=== PATIENT | female | born 1955 | race Caucasian/White ===

== ENCOUNTER 2016-09-24 11:56 | Day surgery (SDC) | payer BC ==
[2016-09-18 11:06] VITALS: BMI 39.5
[~2016-09-24 11:56] MED LIST: LACTATED RINGERS 1,000 ML IV ONE; LACTATED RINGERS 1,000 ML IV SCH
[2016-09-24 12:14] VITALS: RESP 16; TEMP 97.1
[2016-09-24] MEDS: CYCLOPENTOLATE 1% OPHTH SOLN 2 ML BTL OP ONE ×3 (12:17→12:33)
[2016-09-24] MEDS ORDERED: LIDOCAINE 1% 20 ML VIAL (10MG/ML) FOR IV START SQ ONE (12:18)
[2016-09-24] MEDS: FLURBIPROFEN 0.03% OPHTH DROPS 2.5 ML BTL OP ONE ×3 (12:22→12:35)
[2016-09-24] MEDS: PHENYLEPHRINE 10% OPHTH DROPS 5 ML BTL OP ONE ×3 (12:24→12:37)
[2016-09-24 12:28] LABS: Glucose,Whole Blood 118 mg/dL (75-99)
[2016-09-24] MEDS ORDERED: LIDOCAINE 1% INJ 10MG/ML (20 ML MDV) ONE (12:44)
[2016-09-24] MEDS ORDERED: PROPOFOL 10 MG/ML 20 ML VIAL IV ONE (12:44)
[2016-09-24] MEDS ORDERED: HYALURONATE SODIUM INTRAOCULAR 1 EACH SYRINGE (10MG/ML) INTRAOCULA ONE (12:47)
[2016-09-24] MEDS ORDERED: BALANCED SALT IRRIG SOLN COMB2 15 ML IRRIG.SOLN INTRAOCULA ONE (12:47)
[2016-09-24] MEDS ORDERED: EPINEPHrine (PF) 0.5 ML in BALANCED SALT IRRIG SOLN COMB2 500 ML IRRIGATION ONE (12:51)
[2016-09-24 13:36] VITALS: BP 151/85; PULSE 60
--- NOTE | 2016-09-24 13:47 | P.OP ---
Date of Procedure: 09/24/16 Procedure(s) Performed: PREOPERATIVE DIAGNOSIS: Cataract, left eye. POSTOPERATIVE DIAGNOSIS: Cataract, left eye. OPERATION: Phacoemulsification cataract, left eye. DESCRIPTION OF PROCEDURE: The patient was taken to the preoperative holding area. Intravenous Propofol was given so as to bring about adequate sedation. The following mixture was given for local anesthesia: 5 mL of 2% lidocaine, 5 mL of 0.75% Marcaine, and 1 mL of Wydase. Approximately 4 mL was injected in the retrobulbar space of the surgical eye. Additional 1 mL was then directed to the temporal area of the surgical eye. This was performed to allow adequate neurological block of the facial muscles. The patient was revived and then taken into the operative room. The patient was prepped and draped in the usual sterile manner for the operative eye. A lid speculum was put into position. The conjunctiva was resected back from the limbus in the 12 o'clock position. Bleeding was controlled with electrocautery. A #69 blade was then used and a half-thickness scleral incision approximately 1-mm posterior to the limbus was made on bare sclera. This was shelved in the clear cornea using a crescent knife. Next a 15-degree blade was used to make a stab incision at the 3 o' clock position at the corneolimbal interface. Keratome blade was then used and the superior wound was extended into the anterior chamber. Viscoelastic was injected into the anterior chamber and to maintain its form. Next, a cystotome was used and a continuous anterior capsulotomy was made without difficulty. Hydrodissection using a blunt cannula and BSS was performed. Phaco probe was then employed and a groove extending from 12 to 6 o'clock in the lens was created. A Ari wand was used through the stab incision so as to perform a divide and conquer technique. Next an irrigation aspiration probe was utilized and any residual cortex was removed from the eye. Again, viscoelastic was injected into the anterior chamber. An Frantz posterior chamber lens implant was placed in the cartridge and injected into the anterior chamber without difficulty. The SinClickyreservaey hook was utilized to spin the lens into position and this was again performed without any difficulty. The irrigation and aspiration probe was again employed and any residual viscoelastic was removed from the eye. Then BSS was injected into the limbal stab incision and the anterior chamber re-inflated. The conjunctiva was reapproximated using electrocautery. One drop of 0.25% Timoptic was placed over the corneal along with TobraDex ophthalmic ointment. Two sterile patches and a Nicholson eye shield were taped into position. The patient was transported to the recovery room in stable condition. Pathology: none sent Condition: stable Disposition: same day
[2016-09-24] MEDS ORDERED: TIMOLOL 0.5% OPHTH SOLN (PF) 0.2 ML DROPERETTE OP ONE (23:00)
[2016-09-24] MEDS ORDERED: BUPIVACAINE (PF) 0.75% 5 ML, LIDOCAINE 4% (PF) 5 ML, HYALURONIDASE, HUMAN RECOMB 150 UNIT MISCELLANE ONE ×3 (23:00)
[2016-09-24] MEDS ORDERED: GENTAMICIN/PREDNISOL AC OPHTH OINT 3.5GM OPHTHALMIC ONE (23:00)
== END 2016-09-24 14:02 | disposition home or self-care (01) ==
LOC: OR 11:56
PROVIDERS: ATTEND Ophthalmology
DX: H25.13 Age-related nuclear cataract, bilateral (principal); I25.10 Atherosclerotic heart disease of native coronary artery without angina pectoris; Z95.5 Presence of coronary angioplasty implant and graft; E11.9 Type 2 diabetes mellitus without complications; E07.9 Disorder of thyroid, unspecified; F41.9 Anxiety disorder, unspecified; E78.9 Disorder of lipoprotein metabolism, unspecified; I10 Essential (primary) hypertension; Z79.84 Long term (current) use of oral hypoglycemic drugs; Z79.02 Long term (current) use of antithrombotics/antiplatelets; Z79.82 Long term (current) use of aspirin; Z79.4 Long term (current) use of insulin; Z79.899 Other long term (current) drug therapy
CPT/HCPCS: 66984; V2632; J2001 ×2; J3470; J0171; J2704; 99152; 99153

== ENCOUNTER 2016-10-15 06:22 | Day surgery (SDC) | payer BC ==
[2016-10-10 17:57] VITALS: BMI 39.5
[~2016-10-15 06:22] MED LIST changes: +DEXAMETHASONE SOD PHOSPHATE 10 MG/ML 1 ML VIAL IV ONE; +HYDROmorphone 1 MG/ML 1 ML SYRINGE IVP PRN; -LACTATED RINGERS 1,000 ML IV ONE; +ONDANSETRON 4 MG/2 ML VIAL IVP ONE
[2016-10-15] MEDS: FLURBIPROFEN 0.03% OPHTH DROPS 2.5 ML BTL OP ONE ×3 (06:55→07:15)
[2016-10-15] MEDS: CYCLOPENTOLATE 1% OPHTH SOLN 2 ML BTL OP ONE ×3 (06:57→07:17)
[2016-10-15 07:04] LABS: Glucose,Whole Blood 212 mg/dL (75-99)
[2016-10-15] MEDS: PHENYLEPHRINE 10% OPHTH DROPS 5 ML BTL OP ONE ×3 (07:06→07:19)
[2016-10-15] MEDS ORDERED: LIDOCAINE 1% 20 ML VIAL (10MG/ML) FOR IV START INTRADERMA ONE (07:07)
[2016-10-15] MEDS ORDERED: LIDOCAINE 1% INJ 10MG/ML (20 ML MDV) ONE (07:53)
[2016-10-15] MEDS ORDERED: fentaNYL (PF) 50 MCG/ML 2 ML AMP ONE (07:53)
[2016-10-15] MEDS ORDERED: PROPOFOL 10 MG/ML 20 ML VIAL IV ONE (07:53)
[2016-10-15] MEDS ORDERED: MIDAZOLAM 2 MG/2 ML VIAL ONE (07:53)
[2016-10-15] MEDS ORDERED: BALANCED SALT IRRIG SOLN COMB2 15 ML IRRIG.SOLN INTRAOCULA ONE (07:56)
[2016-10-15] MEDS ORDERED: HYALURONATE SODIUM INTRAOCULAR 1 EACH SYRINGE (10MG/ML) INTRAOCULA ONE (07:56)
[2016-10-15] MEDS ORDERED: EPINEPHrine (PF) 0.5 ML in BALANCED SALT IRRIG SOLN COMB2 500 ML IRRIGATION ONE (08:02)
[2016-10-15 08:22] VITALS: TEMP 97.7
[2016-10-15 08:41] VITALS: BP 139/80; PULSE 69; RESP 18
--- NOTE | 2016-10-15 08:46 | P.OP ---
Date of Procedure: 10/15/16 Procedure(s) Performed: PREOPERATIVE DIAGNOSIS: Cataract, right eye. POSTOPERATIVE DIAGNOSIS: Cataract, right eye. OPERATION: Phacoemulsification cataract, right eye. DESCRIPTION OF PROCEDURE: The patient was taken to the preoperative holding area. Intravenous Propofol was given so as to bring about adequate sedation. The following mixture was given for local anesthesia: 5 mL of 2% lidocaine, 5 mL of 0.75% Marcaine, and 1 mL of Wydase. Approximately 4 mL was injected in the retrobulbar space of the surgical eye. Additional 1 mL was then directed to the temporal area of the surgical eye. This was performed to allow adequate neurological block of the facial muscles. The patient was revived and then taken into the operative room. The patient was prepped and draped in the usual sterile manner for the operative eye. A lid speculum was put into position. The conjunctiva was resected back from the limbus in the 12 o'clock position. Bleeding was controlled with electrocautery. A #69 blade was then used and a half-thickness scleral incision approximately 1-mm posterior to the limbus was made on bare sclera. This was shelved in the clear cornea using a crescent knife. Next a 15-degree blade was used to make a stab incision at the 3 o' clock position at the corneolimbal interface. Keratome blade was then used and the superior wound was extended into the anterior chamber. Viscoelastic was injected into the anterior chamber and to maintain its form. Next, a cystotome was used and a continuous anterior capsulotomy was made without difficulty. Hydrodissection using a blunt cannula and BSS was performed. Phaco probe was then employed and a groove extending from 12 to 6 o'clock in the lens was created. A Ari wand was used through the stab incision so as to perform a divide and conquer technique. Next an irrigation aspiration probe was utilized and any residual cortex was removed from the eye. Again, viscoelastic was injected into the anterior chamber. An Frantz posterior chamber lens implant was placed in the cartridge and injected into the anterior chamber without difficulty. The SinJapan [employer]life Assistey hook was utilized to spin the lens into position and this was again performed without any difficulty. The irrigation and aspiration probe was again employed and any residual viscoelastic was removed from the eye. Then BSS was injected into the limbal stab incision and the anterior chamber re-inflated. The conjunctiva was reapproximated using electrocautery. One drop of 0.25% Timoptic was placed over the corneal along with TobraDex ophthalmic ointment. Two sterile patches and a Nicholson eye shield were taped into position. The patient was transported to the recovery room in stable condition. Pathology: none sent Condition: stable Disposition: same day
[2016-10-15] MEDS ORDERED: GENTAMICIN/PREDNISOL AC OPHTH OINT 3.5GM OPHTHALMIC ONE (23:00)
[2016-10-15] MEDS ORDERED: TIMOLOL 0.5% OPHTH SOLN (PF) 0.2 ML DROPERETTE OP ONE (23:00)
[2016-10-15] MEDS ORDERED: BUPIVACAINE (PF) 0.75% 5 ML, LIDOCAINE 4% (PF) 5 ML, HYALURONIDASE, HUMAN RECOMB 150 UNIT MISCELLANE ONE ×3 (23:00)
== END 2016-10-15 08:54 | disposition home or self-care (01) ==
LOC: OR 06:22
PROVIDERS: ATTEND Ophthalmology
DX: H26.9 Unspecified cataract (principal); H04.129 Dry eye syndrome of unspecified lacrimal gland; I10 Essential (primary) hypertension; E78.5 Hyperlipidemia, unspecified; E11.9 Type 2 diabetes mellitus without complications; Z79.4 Long term (current) use of insulin; Z79.84 Long term (current) use of oral hypoglycemic drugs; E07.9 Disorder of thyroid, unspecified; E66.01 Morbid (severe) obesity due to excess calories; Z68.39 Body mass index [BMI] 39.0-39.9, adult; F41.9 Anxiety disorder, unspecified; N39.3 Stress incontinence (female) (male); I25.10 Atherosclerotic heart disease of native coronary artery without angina pectoris; Z95.5 Presence of coronary angioplasty implant and graft; Z79.02 Long term (current) use of antithrombotics/antiplatelets; Z79.82 Long term (current) use of aspirin; Z79.899 Other long term (current) drug therapy
CPT/HCPCS: 66984; V2632; J2001 ×2; J2250; J3470; J0171; J3010; J2704; 99152; 99153

== ENCOUNTER → 2018-02-27 | Outpatient (CLI) | payer BC ==
[2018-02-27 09:24] LABS: HGB 14.3 gm/dL (11.4-16.0); MCH 28.2 pg (25.0-35.0); MCHC 31.7 g/dL (31.0-37.0); Mean Platelet Volume 7.9; Platelet Count 273 k/uL (150-450); RBC 5.05 m/uL (3.80-5.40); RDW 13.5 % (11.5-15.5); WBC 8.3 k/uL (3.8-10.6)
[2018-02-27 09:57] LABS: Anion Gap 13 mmol/L; Blood Urea Nitrogen 18 mg/dL (7-17); Carbon Dioxide 22 mmol/L (22-30); Chloride 107 mmol/L (98-107); Potassium 3.9 mmol/L (3.5-5.1); Sodium 142 mmol/L (137-145)
== END | disposition home or self-care (01) ==
LOC: LABPAT 08:50
PROVIDERS: ATTEND Internal Medicine Interventional Cardiology
DX: Z01.812 Encounter for preprocedural laboratory examination (principal); I25.10 Atherosclerotic heart disease of native coronary artery without angina pectoris
CPT/HCPCS: 36415; 80051; 82565; 84520; 85027

== ENCOUNTER → 2018-03-04 | Day surgery (SDC) | payer BC ==
[2018-02-26 09:39] VITALS: BMI 40.7
[~2018-03-04] MED LIST changes: +ALPRAZolam 0.25 MG TAB PO PRN; +ALPRAZolam 0.5 MG TAB PO PRN; +ASPIRIN 325 MG TAB PO STA; +ATORVASTATIN 80 MG TAB PO STA; +CLOPIDOGREL 75 MG TAB PO SCH; -DEXAMETHASONE SOD PHOSPHATE 10 MG/ML 1 ML VIAL IV ONE; +HYDROCHLOROTHIAZIDE PO SCH; -HYDROmorphone 1 MG/ML 1 ML SYRINGE IVP PRN; +INSULIN GLARGINE HUM REC ANLOG 30 UNIT INJ SCH; +INSULIN GLARGINE HUM REC ANLOG 40 UNIT INJ SCH; +IOHEXOL 350 MG/ML 125ML BOTTLE INJ ONE; +IOPAMIDOL-370 125ML BTL INJ ONE; -LACTATED RINGERS 1,000 ML IV SCH; +LEVOTHYROXINE 50 MCG TAB PO SCH; +LIDOCAINE 2% INJ 20 MG/ML SQ ONE; +LOSARTAN PO SCH; +METOPROLOL TARTRATE 25 MG TAB PO SCH; +NITROGLYCERIN SL TABS 0.4 MG TAB SUBLINGUAL PRN; +NON-FORMULARY DRUG (Aspirin [Adult Low Dose Aspirin Ec] 81 MG) PO SCH; +NON-FORMULARY DRUG (Dulaglutide [Trulicity] 0.75 MG) SQ SCH; -ONDANSETRON 4 MG/2 ML VIAL IVP ONE; +OXYBUTYNIN 10 MG TAB.ER.24 PO SCH; +RX INFO: IV CONTRAST WAS GIVEN 1 EACH MISC MISCELLANE PRN; +SODIUM CHLORIDE 0.9% 1,000 ML IV SCH; +SODIUM CHLORIDE 0.9% 1,000 ML in EMPTY BAG 1 BAG IV ONE; +VERAPAMIL SYRINGE (5 MG/10 ML) INTRAARTER ONE; +[UNRECOGNIZED DRUG - OTHER] PO SCH; +amLODIPine 5 MG TAB PO SCH; +fentaNYL (PF) 50 MCG/ML 2 ML AMP IV ONE; +glipiZIDE 10 MG TAB PO SCH
[2018-03-04 06:38] VITALS: RESP 18; TEMP 97.9
[2018-03-04 06:52] LABS: Glucose,Whole Blood 154 mg/dL (75-99)
--- NOTE | 2018-03-04 09:32 | CC ---
CARDIAC CATHETERIZATION REPORT Mrs. Vallejo is a 63-year-old female with known history of coronary artery disease, status post percutaneous revascularization in 2016, history of hypertension, hyperlipidemia and diabetes mellitus who has been doing reasonably well recently underwent a myocardial perfusion imaging that revealed evidence of lateral wall ischemia. In view of that, recommendation was made regarding cardiac catheterization. The procedure as well as the risks and the complications were discussed with the patient who is in full understanding and agreement. PROCEDURE: Patient was brought to laborer carpentry dock in a fasting semi-sedated state after receiving fentanyl and Benadryl and achieving moderate conscious sedated state. Using Xylocaine anesthesia in the Seldinger technique, a 6-Comoran sheath was introduced in the right radial artery. Selective right and left angiography performed using 5-Comoran 3.5 bend right and left Leyda catheters. Multiple views of the coronary artery including hemiaxial views were obtained. Following that, a 5-Comoran tight pigtail catheter was introduced in the left ventricle and a 30-degree CASH view of the left ventricle was obtained. Following that, catheter and sheaths were removed. Hemostasis was obtained with deployment of TR band. There was no immediate complication. The patient was returned to her room in stable condition. Of note, the patient received 5000 units of intravenous heparin as well as intra-arterial verapamil. FINDINGS: FLUOROSCOPY: There is significant calcification involving the right coronary artery, left anterior descending artery and left main. LEFT MAIN: This is a large-sized vessel trifurcating left circumflex, left anterior descending artery and ramus intermedius. Left main coronary artery has no evidence of high-grade stenosis. ' LEFT ANTERIOR DESCENDING ARTERY: This is a large-sized vessel reaching toward the apex with a wraparound apex segment giving rise to a moderately sized diagonal branch in the proximal segment. The stented segment of the proximal LAD is patent. The takeoff of the diagonal branch has 70% to 80% stenosis. The rest of the vessel has mild intimal disease of 20% to 30% without any evidence of high-grade stenosis. RAMUS INTERMEDIUS: This is a large-sized vessel reaching toward the apical lateral wall that has no evidence of high-grade stenosis. LEFT CIRCUMFLEX: This is a nondominant vessel giving rise to obtuse marginal branch that has no evidence of high-grade stenosis. RIGHT CORONARY ARTERY: This is a large dominant vessel bifurcating distally in PDA and posterolateral segment and branches. The mid right coronary artery has intimal disease of 30%. The rest of the vessel has no high-grade stenosis. LEFT VENTRICULOGRAM: Left ventriculogram is performed in 30-degree CASH view and revealed normal left ventricular size with no evidence of mitral regurgitation. Ejection fraction is 55%. HEMODYNAMICS: There was no gradient across the aortic valve. The left ventricular end- diastolic pressure was 18 to 20 mmHg. CONCLUSION: 1. Calcified coronary arteries. 2. Patent stent in the left anterior descending artery. 3. Significant disease of the ostium of the diagonal branch that is a jailed branch, with no significant progression compared with the prior images. 4. Normal left ventricular size and systolic function. RECOMMENDATION: In view of finding anatomy, I recommend to continue medical therapy with the aggressive coronary risk modification that has been initiated. Those findings and recommendation were discussed with the patient and her family and are in full understanding and agreement. MMLESLIEL / IJN: [id number] /
--- NOTE | 2018-03-04 09:32 | LTR ---
March 04, 2018 Re: Stephanie Vallejo Dear Dr. Reyes: I had the opportunity to perform cardiac catheterization on Mrs. Vallejo at [facility] on the 04 of March and a full copy of the procedure note will be forwarded to you. In brief, she was found to have patent stent to the LAD with a lesion involving the ostium of the diagonal branch that is a jailed branch. In view of that finding, I recommend to continue medical therapy with the aggressive coronary risk modifications that has been initiated. Thank you again for allowing me the opportunity to participate in her care. Please feel free to call for any questions. Sincerely yours, Jan Weston MD MMLESLIEL / CARLINEN: [id number] /
[2018-03-04 12:46] VITALS: BP 145/69; PULSE 65
== END | disposition home or self-care (01) ==
LOC: CATHCVL 06:01
PROVIDERS: ATTEND Internal Medicine Interventional Cardiology
DX: I25.10 Atherosclerotic heart disease of native coronary artery without angina pectoris (principal); I25.84 Coronary atherosclerosis due to calcified coronary lesion; I10 Essential (primary) hypertension; E78.2 Mixed hyperlipidemia; E11.9 Type 2 diabetes mellitus without complications; Z79.02 Long term (current) use of antithrombotics/antiplatelets; Z79.82 Long term (current) use of aspirin; Z79.890 Hormone replacement therapy; Z79.4 Long term (current) use of insulin; Z79.51 Long term (current) use of inhaled steroids; Z79.899 Other long term (current) drug therapy
CPT/HCPCS: 93458; C1894; C1769; J2001; J3010; J1644; Q9967

== ENCOUNTER 2019-02-18 21:14 | Inpatient (IN) | payer BC, MEDICARE ==
--- NOTE | 2019-02-18 21:39 | ED ---
General Adult HPI - General Chief complaint: Shortness of Breath Stated complaint: SOB Time Seen by Provider: 02/18/19 21:26 Source: patient, RN notes reviewed Mode of arrival: wheelchair Limitations: no limitations - History of Present Illness Initial comments: Patient is a pleasant 64-year-old female presenting to the emergency Department with complaints of exertional dyspnea. Symptoms have been present for the past 7-10 days. Symptoms are only present with exertion. No symptoms at rest. No orthopnea. Patient has noticed some discomfort of her right calf region. No leg swelling. No chest pain. Patient has had mild cough, nonproductive. No history of similar symptoms previously. No history of COPD or asthma or CHF. - Related Data Home Medications Medication Instructions Recorded Confirmed ALPRAZolam 0.25 mg PO HS PRN 02/09/16 02/18/19 Aspirin [Adult Low Dose Aspirin EC] 81 mg PO HS 02/09/16 02/18/19 Levothyroxine Sodium [Synthroid] 50 mcg PO QAM 02/09/16 02/18/19 Metoprolol Tartrate 25 mg PO BID 02/09/16 02/18/19 Insulin Glargine,Hum.rec.anlog 40 units SQ BID@0700,199902/18/19 02/18/19 [Lantus Solostar] Losartan Potassium 100 mg PO DAILY 02/18/19 02/18/19 Multivitamin [Multivitamins Adult 1 tab PO MOWEFR 02/18/19 02/18/19 Gummies] Oxybutynin ER [Ditropan Xl] 15 mg PO DAILY 02/18/19 02/18/19 Semaglutide [Ozempic] 0.25 mg SQ GOLDSTEIN 02/18/19 02/18/19 Simvastatin [Zocor] 40 mg PO HS 02/18/19 02/18/19 amLODIPine [Norvasc] 10 mg PO QAM 02/18/19 02/18/19 glipiZIDE XL [Glucotrol XL] 10 mg PO AC-BRKFST 02/18/19 02/18/19 Previous Rx's Medication Instructions Recorded Nitroglycerin Sl Tabs [Nitrostat] 0.4 mg SUBLINGUAL Q5M PRN #25 tab 02/16/16 metFORMIN HCL 1,000 mg PO HS #0 06/24/16 Allergies Allergy/AdvReac Type Severity Reaction Status Date / Time No Known Allergies Allergy Verified 02/18/19 22:19 Review of Systems ROS Statement: Those systems with pertinent positive or pertinent negative responses have been documented in the HPI. ROS Other: All systems not noted in ROS Statement are negative. Constitutional: Denies: fever Eyes: Denies: eye pain ENT: Denies: ear pain Respiratory: Reports: as per HPI, cough, dyspnea Cardiovascular: Denies: chest pain Endocrine: Reports: fatigue Gastrointestinal: Denies: abdominal pain Genitourinary: Denies: dysuria Musculoskeletal: Denies: back pain Skin: Denies: rash Neurological: Denies: weakness Past Medical History Past Medical History: Coronary Artery Disease (CAD), Chest Pain / Angina, Diabetes Mellitus, Hyperlipidemia, Hypertension, Musculoskeletal Disorder, Osteoarthritis (OA), Thyroid Disorder Additional Past Medical History / Comment(s): Palpitations, urinary frequency, low back pain History of Any Multi-Drug Resistant Organisms: MRSA Date of last positivie culture/infection: 2005 MDRO Source:: [employer] Past Surgical History: Bariatric Surgery, Cholecystectomy, Heart Catheterization With Stent, Orthopedic Surgery, Tonsillectomy Additional Past Surgical History / Comment(s): LAP REMOVAL OVARY CYST . LAP BAND. ARTHROSCOPY OF L KNEE. Colonoscopy. I&D of abdominal cyst. Sinus surgery, cataracts Past Anesthesia/Blood Transfusion Reactions: No Reported Reaction Date of Last Stent Placement:: 02/2016 Past Psychological History: Anxiety Smoking Status: Never smoker Past Alcohol Use History: None Reported Past Drug Use History: None Reported - Past Family History Mother Family Medical History: Cancer Additional Family Medical History / Comment(s): Mother of OVARIAN CANCER at the age of 64yrs.. Father Family Medical History: No Reported History Additional Family Medical History / Comment(s): Father in a motorcycle accident in his 50's. General Exam Limitations: no limitations General appearance: alert, in no apparent distress Head exam: Present: atraumatic Eye exam: Present: normal appearance, PERRL ENT exam: Present: normal oropharynx Neck exam: Present: normal inspection Respiratory exam: Present: normal lung sounds bilaterally Cardiovascular Exam: Present: regular rate, normal rhythm Expanded Peripheral pulses: 2+: Radial (R), Radial (L), Dorsalis Pedis (R), Dorsalis Pedis (L) GI/Abdominal exam: Present: soft. Absent: distended, tenderness Extremities exam: Present: calf tenderness (Mild right calf). Absent: pedal edema Neurological exam: Present: alert Psychiatric exam: Present: normal affect, normal mood Skin exam: Present: normal color Course Vital Signs 02/18/19 02/18/19 02/18/19 21:16 22:00 23:03 Temperature 97.8 F Pulse Rate 103 H 98 94 Respiratory 22 18 18 Rate Blood Pressure 162/93 175/94 180/78 O2 Sat by Pulse 92 L 95 95 Oximetry EKG Findings - EKG Comments: EKG Findings:: Normal sinus rhythm at 99. PA 186. QRS 88. QT 324. QTC 4:15. Normal axis. Normal QRS. No acute ST change. Medical Decision Making - Medical Decision Making Patient reevaluated and resting comfortably in bed. Patient and family are updated on results and plan. Case was discussed in detail with Dr. Huang, covering for Dr. Kristine Raza, who will admit. He does request consult with pulmonary and cardiology. - Lab Data Result diagrams: 02/18/19 21:33 02/18/19 21:33 Lab Results 02/18/19 02/18/19 02/18/19 Range/Units 21:33 21:33 21:33 WBC 10.4 (3.8-10.6) k/uL RBC 5.51 H (3.80-5.40) m/uL Hgb 15.7 (11.4-16.0) gm/dL Hct 48.4 H (34.0-46.0) % MCV 87.8 (80.0-100.0) fL MCH 28.5 (25.0-35.0) pg MCHC 32.5 (31.0-37.0) g/dL RDW 13.5 (11.5-15.5) % Plt Count 241 (150-450) k/uL Neutrophils % 56 % Lymphocytes % 33 % Monocytes % 6 % Eosinophils % 3 % Basophils % 1 % Neutrophils # 5.8 (1.3-7.7) k/uL Lymphocytes # 3.4 (1.0-4.8) k/uL Monocytes # 0.6 (0-1.0) k/uL Eosinophils # 0.3 (0-0.7) k/uL Basophils # 0.1 (0-0.2) k/uL PT 9.9 (9.0-12.0) sec INR 0.9 (<1.2) APTT 22.1 (22.0-30.0) sec D-Dimer 5.26 H (<0.60) mg/L FEU Sodium 141 (137-145) mmol/L Potassium 3.9 (3.5-5.1) mmol/L Chloride 108 H (98-107) mmol/L Carbon Dioxide 17 L (22-30) mmol/L Anion Gap 16 mmol/L BUN 13 (7-17) mg/dL Creatinine 0.67 (0.52-1.04) mg/dL Est GFR (CKD-EPI)AfAm >90 (>60 ml/min/1.73 sqM) Est GFR (CKD-EPI)NonAf >90 (>60 ml/min/1.73 sqM) Glucose 288 H (74-99) mg/dL Calcium 9.7 (8.4-10.2) mg/dL Total Bilirubin 1.0 (0.2-1.3) mg/dL AST 29 (14-36) U/L ALT 22 (9-52) U/L Alkaline Phosphatase 144 H (38-126) U/L Creatine Kinase 87 (30-135) U/L Troponin I (0.000-0.034) ng/mL NT-Pro-B Natriuret Pep pg/mL Total Protein 7.5 (6.3-8.2) g/dL Albumin 4.4 (3.5-5.0) g/dL 02/18/19 02/18/19 Range/Units 21:33 21:33 WBC (3.8-10.6) k/uL RBC (3.80-5.40) m/uL Hgb (11.4-16.0) gm/dL Hct (34.0-46.0) % MCV (80.0-100.0) fL MCH (25.0-35.0) pg MCHC (31.0-37.0) g/dL RDW (11.5-15.5) % Plt Count (150-450) k/uL Neutrophils % % Lymphocytes % % Monocytes % % Eosinophils % % Basophils % % Neutrophils # (1.3-7.7) k/uL Lymphocytes # (1.0-4.8) k/uL Monocytes # (0-1.0) k/uL Eosinophils # (0-0.7) k/uL Basophils # (0-0.2) k/uL PT (9.0-12.0) sec INR (<1.2) APTT (22.0-30.0) sec D-Dimer (<0.60) mg/L FEU Sodium (137-145) mmol/L Potassium (3.5-5.1) mmol/L Chloride (98-107) mmol/L Carbon Dioxide (22-30) mmol/L Anion Gap mmol/L BUN (7-17) mg/dL Creatinine (0.52-1.04) mg/dL Est GFR (CKD-EPI)AfAm (>60 ml/min/1.73 sqM) Est GFR (CKD-EPI)NonAf (>60 ml/min/1.73 sqM) Glucose (74-99) mg/dL Calcium (8.4-10.2) mg/dL Total Bilirubin (0.2-1.3) mg/dL AST (14-36) U/L ALT (9-52) U/L Alkaline Phosphatase (38-126) U/L Creatine Kinase (30-135) U/L Troponin I 0.478 H* (0.000-0.034) ng/mL NT-Pro-B Natriuret Pep 589 pg/mL Total Protein (6.3-8.2) g/dL Albumin (3.5-5.0) g/dL - Radiology Data Radiology results: report reviewed (Ultrasound shows calf vein thrombosis. Computed tomography scan of the chest reveals bilateral mild to moderate pulmonary emboli. No central or saddle embolism. No evidence of heart strain. This was discussed with radiologist.), image reviewed (Chest x-ray reveals no acute process.) Critical Care Time Critical Care Time: Yes Total Critical Care Time: 32 Disposition Clinical Impression: Pulmonary embolism Disposition: ADMITTED IP TO THIS HOSP Is patient prescribed a controlled substance at d/c from ED?: No Referrals: Kristine Reyes MD [Primary Care Provider] - 1-2 days Decision Time: 00:10
[2019-02-18 21:45] LABS: Basophils # (A) 0.1 k/uL (0-0.2); Basophils % (A) 1 %; Eosinophils # (A) 0.3 k/uL (0-0.7); Eosinophils % (A) 3 %; HCT 48.4 % (34.0-46.0); HGB 15.7 gm/dL (11.4-16.0); Lymphocytes # (A) 3.4 k/uL (1.0-4.8); Lymphocytes % (A) 33 %; MCH 28.5 pg (25.0-35.0); MCHC 32.5 g/dL (31.0-37.0); MCV 87.8 fL (80.0-100.0); Mean Platelet Volume 8.3; Monocytes # (A) 0.6 k/uL (0-1.0); Monocytes % (A) 6 %; Neutrophils # (A) 5.8 k/uL (1.3-7.7); Neutrophils % (A) 56 %; Platelet Count 241 k/uL (150-450); RBC 5.51 m/uL (3.80-5.40); RDW 13.5 % (11.5-15.5); WBC 10.4 k/uL (3.8-10.6)
[2019-02-18 21:55] LABS: ALT 22 U/L (9-52); AST 29 U/L (14-36); African American GFR (CKD) >90 (>60 ml/min/1.73 sqM); Albumin 4.4 g/dL (3.5-5.0); Alkaline Phosphatase 144 U/L (38-126); Anion Gap 16 mmol/L; Blood Urea Nitrogen 13 mg/dL (7-17); Calcium 9.7 mg/dL (8.4-10.2); Carbon Dioxide 17 mmol/L (22-30); Chloride 108 mmol/L (98-107); Creatine Kinase 87 U/L (30-135); Glucose 288 mg/dL (74-99); Potassium 3.9 mmol/L (3.5-5.1); Sodium 141 mmol/L (137-145); Total Protein 7.5 g/dL (6.3-8.2)
--- NOTE | 2019-02-18 22:05 | XR ---
EXAMINATION TYPE: XR chest 2V DATE OF EXAM: 02/18/2019 COMPARISON: 08/15/2016 HISTORY: Difficulty breathing TECHNIQUE: Frontal and lateral views of the chest are obtained. FINDINGS: Heart and mediastinum are normal. Lungs are clear. Diaphragm is normal. Bony thorax is int act. There are chest leads. IMPRESSION: No active cardiopulmonary disease. Normal heart. No change.
[2019-02-18 22:07] LABS: INR 0.9 (<1.2); Partial Thromboplastin Time 22.1 sec (22.0-30.0); Prothrombin Time 9.9 sec (9.0-12.0)
[2019-02-18 22:23] LABS: D-Dimer 5.26 mg/L FEU (<0.60)
[2019-02-18] MEDS ORDERED: HEPARIN SODIUM,PORCINE 10,000 UNIT/ML 1 ML VIAL IV ONE (22:23)
[2019-02-18] MEDS ORDERED: HEPARIN SODIUM,PORCINE 5,000 UNIT/ML 1 ML VIAL IV PRN (22:23)
[2019-02-18] MEDS: HEPARIN SOD,PORK IN 0.45% NACL 25,000 UNIT in 0.45% NACL 1 250ML.BAG IV SCH (23:00)
--- NOTE | 2019-02-18 23:19 | US ---
EXAM: US Duplex Right Lower Extremity Veins CLINICAL HISTORY: Pain. Pain right leg x 1.5 weeks. No HX of DVT. Pt takes aspirin. TECHNIQUE: The lower extremity deep venous system is examined utilizing real time linear array sonography with graded compression, doppler sonography and color-flow sonography. COMPARISON: No relevant prior studies available. FINDINGS: veins: No evidence of DVT from right proximal calf veins to EIV. No thrombus in visualized great saphenous vein. Scanned right lateral- posterior calf area of pain/concern. These paired veins appear to be non- compressible with thrombus visualized, image [id number]. Soft tissues: No acute findings. No popliteal cyst. IMPRESSION: venous thrombosis seen calf vein in posterior lateral right calf, region of pain. <MYCVCSECTION> Critical Value Communications 02/18/19 23:23 Verify Receipt Verified receipt with YELENA SALAS in the ER for DR CROCKETT on 02/18 23:23 (-04:00)
--- NOTE | 2019-02-18 23:43 | CT ---
EXAM: CT Angiography Chest With Intravenous Contrast CLINICAL HISTORY: ITS.REASON CT Reason: pe protocol TECHNIQUE: Axial computed tomographic angiography images of the chest with intravenous contrast using pulmonary embolism protocol. CTDI is 21.6 mGy and DLP is 771.4 mGy-cm. This CT exam was performed using one or more of the following dose reduction techniques: automated exposure control, adjustment of the mA and/or kV according to patient size, and/or use of iterative reconstruction technique. MIP reconstructed images were created and reviewed. Coronal and sagittal reformatted images were created and reviewed. COMPARISON: No relevant prior studies available. FINDINGS: Pulmonary arteries: Small to moderate amount of pulmonary emboli in segmental pulmonary arteries of bilateral upper and lower lobes and distal right lobar pulmonary artery. Aorta: No acute findings. No thoracic aortic aneurysm. Lungs: Unremarkable. No mass. No consolidation. Pleural space: Unremarkable. No significant effusion. No pneumothorax. Heart: No right heart strain. No significant pericardial effusion. Bones/joints: Mild degenerative changes. DISH. Suspect osteopenia. Partially visualized left exophytic renal cyst. No acute fracture. No dislocation. Soft tissues: Unremarkable. Lymph nodes: Unremarkable. No enlarged lymph nodes. Liver: Suspect fatty liver Tubes, lines and devices: Lap Band is incidentally noted. IMPRESSION: Small to moderate amount of pulmonary emboli in segmental pulmonary arteries of bilateral upper and lower lobes and distal right lobar pulmonary artery. No right heart strain <MYCVCSECTION> Critical Value [employer] 02/18/19 23:45 Call Doctor Regarding Pulmonary Embolism, called Dr. Rizzo on 02/18 23:45 (-04:00)
[2019-02-19] MEDS ORDERED: NALOXONE 0.4 MG/ML 1 ML VIAL IV PRN (00:10)
[2019-02-19] MEDS ORDERED: ASPIRIN 81 MG PO STA (00:12)
[2019-02-19 01:20] VITALS: BMI 41.3
[2019-02-19 04:46] LABS: Basophils # (A) 0.1 k/uL (0-0.2); Basophils % (A) 1 %; Eosinophils # (A) 0.2 k/uL (0-0.7); Eosinophils % (A) 3 %; HCT 45.3 % (34.0-46.0); HGB 14.5 gm/dL (11.4-16.0); Lymphocytes # (A) 3.1 k/uL (1.0-4.8); Lymphocytes % (A) 35 %; MCH 28.2 pg (25.0-35.0); MCHC 31.9 g/dL (31.0-37.0); MCV 88.4 fL (80.0-100.0); Mean Platelet Volume 8.5; Monocytes # (A) 0.5 k/uL (0-1.0); Monocytes % (A) 6 %; Neutrophils # (A) 4.9 k/uL (1.3-7.7); Neutrophils % (A) 54 %; Platelet Count 217 k/uL (150-450); RBC 5.13 m/uL (3.80-5.40); RDW 13.6 % (11.5-15.5); WBC 9.1 k/uL (3.8-10.6)
[2019-02-19 05:14] LABS: Prothrombin Time 10.6 sec (9.0-12.0)
[2019-02-19 05:16] LABS: Partial Thromboplastin Time 149.7 sec (22.0-30.0)
[2019-02-19 06:06] LABS: Glucose,Whole Blood 156 mg/dL (75-99)
[2019-02-19 11:57] LABS: Glucose,Whole Blood 219 mg/dL (75-99)
--- NOTE | 2019-02-19 15:17 | P.CRDCN ---
History of Present Illness Consult date: 02/19/19 Reason for Consult (text): Shortness of breath. Elevated Troponin. Chief complaint: SOB/elevated troponin. History of present illness: HISTORY OF PRESENT ILLNESS AND PLAN: This is a 64-year-old female with history of CAD s/p PCI of LAD 03/11, chest pain, angina, diabetes mellitus, hypertension, high cholesterol, musculoskeletal disorder, osteoarthritis and hypothyroid. Patient presents in the emergency department with complaints of exertional shortness of breath for the past week or so. Pt also states she had cramping in her RIGHT calf and kept rubbing cream to help it subside. Pt follows with Dr. Beckman in the office. Pt states has CAD s/p PCI to LAD in 2015, recently stopped taking plavix in September. Pt currently in bed with no acute distress, currently resting. Pt has no current c/o of chest pian, chest pressure, SOB or lower extremity edema. Pt continues with ordered IV heparin for positive DVT of RIGHT lower extremity and positive bilateral PE. Positive D-dimer. Troponins are elevated, 0.478, 0.390. BNP elevated at 589. Pt usually active at home caring for house and grandchildren. Pt states she has had no recent travel or inactivity. Works out 2-3 days weekly at gym. Glucose levels at home range 75-130's.. SIGNIFICANT PAST MEDICAL HISTORY: CAD s/p PCI of LAD 03/11, chest pain, angina, diabetes mellitus, hypertension, high cholesterol, musculoskeletal disorder, osteoarthritis and hypothyroid. PAST SURGICAL HISTORY: See list. EKG shows SR, heart rate 78 bpm. Troponins positive x 2 = 0.478, 0.390 SIGNIFICANT LABORATORY VALUES: Positive D-dimer. Troponins are elevated, 0.478, 0.390. BNP elevated at 589. Otherwise WNL.. Chest x-ray no acute process. CT of chest positive for bilateral PE. Most recent echo dated = 02/02/2018 indicates EF 55%, Mild LVH. Mild MR. Mild TR. Most recent stress testing dated = 02/02/18 indicates abnormal myocardial perfusion imaging with lateral wall inducible ischemia. Chest of of stress- induced ischemia and left circumflex.. Most recent cardiac cath dated 03/04/2018 = Patent LAD stenting. Diseased osteom, advised medical management. REVIEW OF SYSTEMS: CONSTITUTIONAL: Denies fever. Denies chills. EYES: Denies blurred vision. Denies blurred vision or vision changes. Denies eye pain. EARS, NOSE, MOUTH & THROAT: Denies headache. Denies sore throat. Denies ear pain Denies hemoptysis. CARDIOVASCULAR: Denies chest pain. Denies shortness of breath. Denies orthopnea. Denies PND. Denies palpitations. RESPIRATORY: Denies cough. Denies shortness of breath. GASTROINTESTINAL: Denies abdominal pain or distention. Denies diarrhea. Denies constipation. Denies nausea. Denies vomiting. MUSCULOSKELETAL: Denies myalgias. INTEGUMENTARY: Denies pruitis. Denies rash. ENDOCRINE: Denies fatigue. Denies weight change. Denies polydipsia. Denies polyurina Denies heat/cold intolerance. GENITOURINARY: Denies burning, hematuria or urgency with micturation. HEMATOLOGIC: Denies history of anemia. Denies bleeding. NEUROLOGIC: Denies numbness. Denies tingling. Denies weakness. PSYCHIATRIC: Denies anxiety. Denies depression. PHYSICAL EXAM: VITAL SIGNS: WNL. Afebrile. GENERAL: Well developed, in no acute distress. HEENT: Head is atraumatic, normocephalic. Pupils are equal, round. Extra ocular movements intact. Mucous membranes moist. Neck supple. No JVD. No carotid bruit. No thyromegaly. LUNGS: Clear to auscultation no wheezes, rales or rhonchi. No chest wall tenderness on palpation or with deep breathing. HEART: Regular rate and rhythm, no rubs or gallops. S1 and S2 heard. No murmur. ABDOMEN: Abdominal exam, WNL. Bowel sounds x4 quads. Soft, non-tender, without masses, organomegaly, or abdominal aorta enlargement. EXTREMITIES/VASCULAR: Extremities have easily palpable radial, femoral, dorsalis pedis and posterior tibial pulses. No cyanosis, calf tenderness. No BLE edema. NEUROLOGIC: Patient is awake, alert and oriented x3. No focal neurologic abnormalities. FINAL IMPRESSION: 1. Bilateral Pulmonary Embolism. 2. RIGHT lower extremity DVT. 3. CAD s\p PCI to LAD - stable. 4. Hyperlipidemia. 5. Hypertension. PLAN: Continue IV Heparin for acute PE/DVT. No acute cardiology process with elevation of troponins (secondary to PE with no right ventricular stress). Continue current medical/medication regime. OK for heart heathy/diabetic diet. Call with questions or concerns. Hematology/oncology consultation advised for unprovoked PE/DVT. Thank you kindly for this consult. Nurse Practitioner note has been reviewed by the Physician. Signing provider agrees with the documented findings, assessment and plan of care. Past Medical History Past Medical History: Coronary Artery Disease (CAD), Chest Pain / Angina, Diabetes Mellitus, Deep Vein Thrombosis (DVT), Hyperlipidemia, Hypertension, Musculoskeletal Disorder, Osteoarthritis (OA), Pulmonary Embolus (PE), Thyroid Disorder Additional Past Medical History / Comment(s): Palpitations, urinary frequency, low back pain History of Any Multi-Drug Resistant Organisms: MRSA Date of last positivie culture/infection: 2005 MDRO Source:: [employer] Past Surgical History: Bariatric Surgery, Cholecystectomy, Heart Catheterization With Stent, Orthopedic Surgery, Tonsillectomy Additional Past Surgical History / Comment(s): lap removal ovary cyst, LAP BAND. ARTHROSCOPY OF L KNEE. Colonoscopy. I&D of abdominal cyst. Sinus surgery, cataracts Past Anesthesia/Blood Transfusion Reactions: No Reported Reaction Date of Last Stent Placement:: 02/2016 Past Psychological History: Anxiety Additional Psychological History / Comment(s): Patient is independent in her home, she states her grandson lives with her. She drives. Smoking Status: Never smoker Past Alcohol Use History: None Reported Past Drug Use History: None Reported - Past Family History Mother Family Medical History: Cancer Additional Family Medical History / Comment(s): Mother of OVARIAN CANCER at the age of 64yrs.. Father Family Medical History: No Reported History Additional Family Medical History / Comment(s): Father in a motorcycle accident in his 50's. Medications and Allergies Home Medications Medication Instructions Recorded Confirmed Type ALPRAZolam 0.25 mg PO HS PRN 02/09/16 02/18/19 History Aspirin [Adult Low Dose Aspirin EC] 81 mg PO HS 02/09/16 02/18/19 History Levothyroxine Sodium [Synthroid] 50 mcg PO QAM 02/09/16 02/18/19 History Metoprolol Tartrate 25 mg PO BID 02/09/16 02/18/19 History Nitroglycerin Sl Tabs [Nitrostat] 0.4 mg SUBLINGUAL Q5M PRN #25 tab 02/16/16 02/18/19 Rx metFORMIN HCL 1,000 mg PO HS #0 02/16/16 02/18/19 Rx Insulin Glargine,Hum.rec.anlog 40 units SQ BID@0700,199902/18/19 02/18/19 History [Lantus Solostar] Losartan Potassium 100 mg PO DAILY 02/18/19 02/18/19 History Multivitamin [Multivitamins Adult 1 tab PO MOWEFR 02/18/19 02/18/19 History Gummies] Oxybutynin ER [Ditropan Xl] 15 mg PO DAILY 02/18/19 02/18/19 History Semaglutide [Ozempic] 0.25 mg SQ GOLDSTEIN 02/18/19 02/18/19 History Simvastatin [Zocor] 40 mg PO HS 02/18/19 02/18/19 History amLODIPine [Norvasc] 10 mg PO QAM 02/18/19 02/18/19 History glipiZIDE XL [Glucotrol XL] 10 mg PO AC-BRKFST 02/18/19 02/18/19 History Rivaroxaban [Xarelto Starter Pack] 1 each PO DIRECTED #1 tab 02/19/19 Rx Allergies Allergy/AdvReac Type Severity Reaction Status Date / Time No Known Allergies Allergy Verified 02/18/19 22:19 Physical Exam Vitals: Vital Signs Temp Pulse Pulse Resp BP BP Pulse Ox 02/19/19 11:32 98.1 F 77 17 157/78 94 L 02/19/19 07:51 97.8 F 78 17 144/80 93 L 02/19/19 03:44 78 17 129/65 92 L 02/19/19 00:39 98.1 F 89 20 149/77 94 L 02/19/19 00:35 93 19 138/90 95 02/19/19 00:00 96 21 166/86 95 02/18/19 23:03 94 18 180/78 95 02/18/19 22:00 98 18 175/94 95 02/18/19 21:16 97.8 F 103 H 22 162/93 92 L Intake and Output 02/18/19 02/19/19 02/19/19 22:59 06:59 14:59 Intake Total 133.383 0 Output Total 900 Balance -766.617 0 Intake: Intake, IV Titration 133.383 0 Amount Heparin Sod,Pork in 0.45% 133.383 0 NaCl 25,000 unit In 0.45 % NaCl 1 250ml.bag @ 18 UNITS/KG/HR 21.228 mls/hr IV .[id number] [facility] Rx#: [id number] Oral 0 Output: Urine 900 Other: Voiding Method Bedside Commode Bedside Commode # Voids 1 Weight 117.934 kg 119.6 kg Results 02/19/19 04:12 02/18/19 21:33 Cardiac Enzymes 02/18/19 02/18/19 02/19/19 Range/Units 21:33 21:33 04:12 AST 29 (14-36) U/L Troponin I 0.478 H* 0.390 H* (0.000-0.034) ng/mL Coagulation 02/18/19 02/19/19 Range/Units 21:33 04:12 PT 9.9 10.6 (9.0-12.0) sec APTT 22.1 149.7 H* (22.0-30.0) sec CBC 02/18/19 02/19/19 Range/Units 21:33 04:12 WBC 10.4 9.1 (3.8-10.6) k/uL RBC 5.51 H 5.13 (3.80-5.40) m/uL Hgb 15.7 14.5 (11.4-16.0) gm/dL Hct 48.4 H 45.3 (34.0-46.0) % Plt Count 241 217 (150-450) k/uL Comprehensive Metabolic Panel 02/18/19 Range/Units 21:33 Sodium 141 (137-145) mmol/L Potassium 3.9 (3.5-5.1) mmol/L Chloride 108 H (98-107) mmol/L Carbon Dioxide 17 L (22-30) mmol/L BUN 13 (7-17) mg/dL Creatinine 0.67 (0.52-1.04) mg/dL Glucose 288 H (74-99) mg/dL Calcium 9.7 (8.4-10.2) mg/dL AST 29 (14-36) U/L ALT 22 (9-52) U/L Alkaline Phosphatase 144 H (38-126) U/L Total Protein 7.5 (6.3-8.2) g/dL Albumin 4.4 (3.5-5.0) g/dL Current Medications Generic Name Dose Route Start Last Admin Trade Name Melonie PRN Reason Stop Dose Admin Heparin Sodium (Porcine) 0 unit 02/18/19 22:23 Heparin IV PER PROTOCOL PRN Low PTT Protocol Heparin Sodium/Sodium Chloride 250 mls @ 21.228 mls/hr 02/18/19 22:30 02/19/19 07:07 25,000 unit/ Sodium Chloride IV 15 units/kg/hr .[id number] [facility] 17.69 mls/hr Titration Protocol 18 UNITS/KG/HR Naloxone HCl 0.2 mg 02/19/19 00:10 Narcan IV Q2M PRN Opioid Reversal Intake and Output 02/18/19 02/19/19 02/19/19 22:59 06:59 14:59 Intake Total 133.383 0 Output Total 900 Balance -766.617 0 Intake: Intake, IV Titration 133.383 0 Amount Heparin Sod,Pork in 0.45% 133.383 0 NaCl 25,000 unit In 0.45 % NaCl 1 250ml.bag @ 18 UNITS/KG/HR 21.228 mls/hr IV .[id number] [facility] Rx#: [id number] Oral 0 Output: Urine 900 Other: Voiding Method Bedside Commode Bedside Commode # Voids 1 Weight 117.934 kg 119.6 kg 02/19/19 04:12 02/18/19 21:33 - EKG Interpretation EKG: sinus rhythm
[2019-02-19] MEDS: HEPARIN SOD,PORK IN 0.45% NACL 25,000 UNIT in 0.45% NACL 1 250ML.BAG IV SCH (15:25)
--- NOTE | 2019-02-19 16:23 | P.HPIM ---
History of Present Illness H&P Date: 02/19/19 Chief Complaint: Elevated troponin/shortness of breath 64-year-old female with history of CAD s/p PCI of LAD 03/11, chest pain, angina, diabetes mellitus, hypertension, high cholesterol, musculoskeletal disorder, osteoarthritis and hypothyroid. Patient presents in the emergency department with complaints of exertional shortness of breath for the past week or so. Pt also states she had cramping in her RIGHT calf and kept rubbing cream to help it subside. Pt follows with Dr. Beckman in the office. Pt states has CAD s/p PCI to LAD in 2015, recently stopped taking plavix in September. Pt currently in bed with no acute distress, currently resting. Pt has no current c/o of chest pian, chest pressure, SOB or lower extremity edema. Pt continues with ordered IV heparin for positive DVT of RIGHT lower extremity and positive bilateral PE. Positive D-dimer. Troponins are elevated, 0.478, 0.390. BNP elevated at 589. Pt usually active at home caring for house and grandchildren. Pt states she has had no recent travel or inactivity. Works out 2-3 days weekly at gym. Glucose levels at home range 75-130's.. Workup in ED was significant for chest x-ray which was unremarkable; CT of chest was positive for bilateral PE; EKG shows normal sinus rhythm and troponin elevated at 0.478 Patient is admitted for further treatment of PE and evaluation by cardiology Review of Systems CONSTITUTIONAL: Denies fever. Denies chills. EYES: Denies blurred vision. Denies blurred vision or vision changes. Denies eye pain. EARS, NOSE, MOUTH & THROAT: Denies headache. Denies sore throat. Denies ear pain Denies hemoptysis. CARDIOVASCULAR: Denies chest pain. Denies shortness of breath. Denies orthopnea. Denies PND. Denies palpitations. RESPIRATORY: Denies cough. Denies shortness of breath. GASTROINTESTINAL: Denies abdominal pain or distention. Denies diarrhea. Denies constipation. Denies nausea. Denies vomiting. MUSCULOSKELETAL: Denies myalgias. INTEGUMENTARY: Denies pruitis. Denies rash. ENDOCRINE: Denies fatigue. Denies weight change. Denies polydipsia. Denies polyurina Denies heat/cold intolerance. GENITOURINARY: Denies burning, hematuria or urgency with micturation. HEMATOLOGIC: Denies history of anemia. Denies bleeding. NEUROLOGIC: Denies numbness. Denies tingling. Denies weakness. PSYCHIATRIC: Denies anxiety. Denies depression. Past Medical History Past Medical History: Coronary Artery Disease (CAD), Chest Pain / Angina, Diabetes Mellitus, Deep Vein Thrombosis (DVT), Hyperlipidemia, Hypertension, Mus culoskeletal Disorder, Osteoarthritis (OA), Pulmonary Embolus (PE), Thyroid Disorder Additional Past Medical History / Comment(s): Palpitations, urinary frequency, low back pain History of Any Multi-Drug Resistant Organisms: MRSA Date of last positivie culture/infection: 2005 MDRO Source:: [employer] Past Surgical History: Bariatric Surgery, Cholecystectomy, Heart Catheterization With Stent, Orthopedic Surgery, Tonsillectomy Additional Past Surgical History / Comment(s): lap removal ovary cyst, LAP BAND. ARTHROSCOPY OF L KNEE. Colonoscopy. I&D of abdominal cyst. Sinus surgery, cataracts Past Anesthesia/Blood Transfusion Reactions: No Reported Reaction Date of Last Stent Placement:: 02/2016 Past Psychological History: Anxiety Additional Psychological History / Comment(s): Patient is independent in her home, she states her grandson lives with her. She drives. Smoking Status: Never smoker Past Alcohol Use History: None Reported Past Drug Use History: None Reported - Past Family History Mother Family Medical History: Cancer Additional Family Medical History / Comment(s): Mother of OVARIAN CANCER at the age of 64yrs.. Father Family Medical History: No Reported History Additional Family Medical History / Comment(s): Father in a motorcycle accident in his 50's. Medications and Allergies Home Medications Medication Instructions Recorded Confirmed Type ALPRAZolam 0.25 mg PO HS PRN 02/09/16 02/18/19 History Aspirin [Adult Low Dose Aspirin EC] 81 mg PO HS 02/09/16 02/18/19 History Levothyroxine Sodium [Synthroid] 50 mcg PO QAM 02/09/16 02/18/19 History Metoprolol Tartrate 25 mg PO BID 02/09/16 02/18/19 History Nitroglycerin Sl Tabs [Nitrostat] 0.4 mg SUBLINGUAL Q5M PRN #25 tab 02/16/16 02/18/19 Rx metFORMIN HCL 1,000 mg PO HS #0 02/16/16 02/18/19 Rx Insulin Glargine,Hum.rec.anlog 40 units SQ BID@0700,199902/18/19 02/18/19 History [Lantus Solostar] Losartan Potassium 100 mg PO DAILY 02/18/19 02/18/19 History Multivitamin [Multivitamins Adult 1 tab PO MOWEFR 02/18/19 02/18/19 History Gummies] Oxybutynin ER [Ditropan Xl] 15 mg PO DAILY 02/18/19 02/18/19 History Semaglutide [Ozempic] 0.25 mg SQ GOLDSTEIN 02/18/19 02/18/19 History Simvastatin [Zocor] 40 mg PO HS 02/18/19 02/18/19 History amLODIPine [Norvasc] 10 mg PO QAM 02/18/19 02/18/19 History glipiZIDE XL [Glucotrol XL] 10 mg PO AC-BRKFST 02/18/19 02/18/19 History Rivaroxaban [Xarelto Starter Pack] 1 each PO DIRECTED #1 tab 02/19/19 Rx Allergies Allergy/AdvReac Type Severity Reaction Status Date / Time No Known Allergies Allergy Verified 02/18/19 22:19 Physical Exam Vitals: Vital Signs Temp Pulse Pulse Resp BP BP Pulse Ox 02/19/19 07:51 97.8 F 78 17 144/80 93 L 02/19/19 03:44 78 17 129/65 92 L 02/19/19 00:39 98.1 F 89 20 149/77 94 L 02/19/19 00:35 93 19 138/90 95 02/19/19 00:00 96 21 166/86 95 02/18/19 23:03 94 18 180/78 95 02/18/19 22:00 98 18 175/94 95 02/18/19 21:16 97.8 F 103 H 22 162/93 92 L Intake and Output 02/18/19 02/19/19 02/19/19 22:59 06:59 14:59 Intake Total 133.383 0 Output Total 900 Balance -766.617 0 Intake: Intake, IV Titration 133.383 0 Amount Heparin Sod,Pork in 0.45% 133.383 0 NaCl 25,000 unit In 0.45 % NaCl 1 250ml.bag @ 18 UNITS/KG/HR 21.228 mls/hr IV .[id number] [facility] Rx#: [id number] Output: Urine 900 Other: Voiding Method Bedside Commode Bedside Commode # Voids 1 Weight 117.934 kg 119.6 kg Results CBC & Chem 7: 02/19/19 04:12 02/18/19 21:33 Labs: Abnormal Lab Results - Last 24 Hours (Table) 02/18/19 02/18/19 02/18/19 Range/Units 21:33 21:33 21:33 RBC 5.51 H (3.80-5.40) m/uL Hct 48.4 H (34.0-46.0) % APTT (22.0-30.0) sec D-Dimer 5.26 H (<0.60) mg/L FEU Chloride 108 H (98-107) mmol/L Carbon Dioxide 17 L (22-30) mmol/L Glucose 288 H (74-99) mg/dL POC Glucose (mg/dL) (75-99) mg/dL Alkaline Phosphatase 144 H (38-126) U/L Troponin I (0.000-0.034) ng/mL 02/18/19 02/19/19 02/19/19 Range/Units 21:33 04:12 04:12 RBC (3.80-5.40) m/uL Hct (34.0-46.0) % APTT 149.7 H* (22.0-30.0) sec D-Dimer (<0.60) mg/L FEU Chloride (98-107) mmol/L Carbon Dioxide (22-30) mmol/L Glucose (74-99) mg/dL POC Glucose (mg/dL) (75-99) mg/dL Alkaline Phosphatase (38-126) U/L Troponin I 0.478 H* 0.390 H* (0.000-0.034) ng/mL 02/19/19 Range/Units 06:05 RBC (3.80-5.40) m/uL Hct (34.0-46.0) % APTT (22.0-30.0) sec D-Dimer (<0.60) mg/L FEU Chloride (98-107) mmol/L Carbon Dioxide (22-30) mmol/L Glucose (74-99) mg/dL POC Glucose (mg/dL) 156 H (75-99) mg/dL Alkaline Phosphatase (38-126) U/L Troponin I (0.000-0.034) ng/mL Thrombosis Risk Factor Assmnt - Choose All That Apply Any of the Below Risk Factors Present?: Yes Each Factor Represents 1 point: Medical pt on bed rest, Obesity (BMI >25) Other Risk Factors: Yes Each Risk Factor Represents 2 Points: Age 61-74 years Each Risk Factor Represents 3 Points: History of DVT/PE Other congenital or acquired thrombophilia - If yes, enter type in comment: No Thrombosis Risk Factor Assessment Total Risk Factor Score: 7 Thrombosis Risk Factor Assessment Level: High Risk Assessment and Plan Assessment: 1. Bilateral pulmonary embolism - Patient started on IV heparin per protocol; we will monitor CBC closely - Recommend oxygen therapy per nasal cannula and incentive spirometry - Pulmonary is following and recommendations are pending 2. Right lower extremity DVT; continue anticoagulation with IV heparin therapy 3. Elevated troponin rule out acute coronary syndrome - Monitor EKG and trend troponin every 83 - Continue with IV heparin infusion until further recommendations from cardiology; recommend 2-D echo 4. CAD s/p PCI to LAD; stable on current therapy 5. Hypertension; resume home dose of losartan 100 mg daily along with metoprolol 25 mg twice a day 6. Hypothyroidism; levothyroxine 50 MCG daily 7. Diabetes mellitus type 1; continue with home dose of Lantus 40 units subcu twice a day; metformin and glipizide while in the hospital; monitor Accu-Cheks every before meals and at bedtime with insulin sliding scale 8. DVT prophylaxis; systemic anticoagulation with heparin CODE STATUS; full code Time with Patient: Greater than 30
[2019-02-19 17:06] LABS: Glucose,Whole Blood 166 mg/dL (75-99)
[2019-02-19] MEDS ORDERED: ALPRAZolam 0.25 MG TAB PO PRN (19:06)
[2019-02-19] MEDS ORDERED: NITROGLYCERIN SL TABS 0.4 MG TAB SUBLINGUAL PRN (19:06)
[2019-02-19] MEDS ORDERED: MULTIVITAMINS, THERA 1 EACH TAB PO SCH (19:15)
--- NOTE | 2019-02-19 19:40 | CONS ---
CONSULTATION PULMONARY/CRITICAL CARE CONSULTATION: DATE OF CONSULTATION: 02/19/2019 REASON FOR CONSULTATION: Shortness of breath. This is a very pleasant 64-year-old female who sees Dr. Kristine Reyes. She presented to the emergency department on February 18 at 2114 hours complaining of shortness of breath. The shortness of breath is only on exertion, not at rest. It has been going on for about 7 or 10 days, getting worse. She also has been noticing some pain and swelling of the right leg and thigh area. The patient states that she denies any trauma. Likewise, there were no long car rides, boat rides, train rides or anything like that. The patient has no prior history of any blood clot. She does have a mild cough. It is not productive. Denies any fever or chills. She did have some chest sensation as well; not a chest pain, but more of a chest tightness. She was evaluated in the emergency room and found to have a right lower extremity DVT and bilateral pulmonary emboli. For that reason, she was admitted to the hospital. Again, the patient denies any obvious risk factors for development of DVT or pulmonary embolism. She is fairly active. She has no active cancer in her body. She has had no trauma to the lower extremities. In addition, she denies any long trips or any long periods of time being sedentary. HOME MEDICATIONS: Her home medications include: 1. Xanax. 2. Aspirin. 3. Levothyroxine. 4. Metoprolol. 5. Insulin. 6. Losartan. 7. Multiple vitamins. 8. Oxybutynin. 9. Ozempic. 10.Zocor. 11.Norvasc. 12.Glucotrol. 13.Nitroglycerin. 14.Metformin. ALLERGIES: DENIED. PAST MEDICAL HISTORY: Her past medical history is positive for: 1. Coronary artery disease. 2. Angina pectoris. 3. Diabetes mellitus. 4. Hyperlipidemia. 5. Hypertension. 6. Osteoarthritis. 7. Hypothyroidism. She also has a history of palpitations, urinary frequency and low back pain. In addition, she has a prior history of MRSA infection back in 2005 in the groin area. PAST SURGICAL HISTORY: Surgical history includes: 1. Bariatric surgery. 2. Cholecystectomy. 3. Heart catheterization with stent. 4. Orthopedic surgery. 5. Tonsillectomy. 6. Ovarian cyst surgery. 7. Lap band procedure. 8. Knee arthroscopy. 9. Sinus surgery. 10.Cataract surgery. SOCIAL HISTORY: Negative for alcohol, tobacco or illicit drugs. 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 FAMILY HISTORY: Positive for mother with cancer. She had ovarian cancer, at age 63. Father apparently in a motorcycle accident in his 50s. REVIEW OF SYSTEMS: CONSTITUTIONAL: Negative. NEUROLOGIC: Negative. HEENT: Negative. CARDIOVASCULAR: Chest tightness. PULMONARY: Shortness of breath, minimal nonproductive cough. The shortness of breath is exertional. GI: Negative. : Negative. RHEUMATOLOGIC: Negative. IMMUNOLOGIC: Negative. ENDOCRINOLOGIC: Negative. DERMATOLOGIC: Negative. PHYSICAL EXAMINATION: VITAL SIGNS: Current vital signs are temperature 97.8, heart rate 77, respiratory rate 17, blood pressure 157/78, mean 104, room-air saturation 94%. GENERAL: She appears in no acute distress. HEENT: HEENT examination is grossly unremarkable. Mucous membranes are moist. No oral lesions. NECK: Supple. Full range of motion. No adenopathy or thyromegaly. Neck veins are flat. CARDIOVASCULAR: Cardiovascular examination reveals regular rhythm and rate. S1, S2 normal. Heart rate 77. No S3, S4. No murmur. LUNGS: Clear breath sounds, equal. No wheezes or rhonchi. No crackles. Breath sounds are equal bilaterally. ABDOMEN: Soft but obese. Bowel sounds are heard. EXTREMITIES: Intact. She has some tenderness in the right calf area. Some slight swelling in the right calf area. SKIN: Without rash. No cyanosis, clubbing or edema elsewhere. NEUROLOGIC: Neurologic examination is brief but nonfocal. LABS/IMAGING: Reviewed. White count 9.1, hemoglobin 14.5, hematocrit 45.3, platelet count 217,000. PT 9.9, INR 0.9. PTT is 22.1. D-dimer 5.26. Sodium 141, potassium 3.9, chloride 108, CO2 17. Anion gap is 16. BUN and creatinine were 16 and 0.67. Troponins were 0.478, 0.217 and 0.217. N-terminal proBNP 589. Albumin 4 4. The patient had a chest x-ray. It shows no active disease. The patient had venous Doppler study. The venous Doppler shows right calf DVT. A CTA was done. It shows small to moderate pulmonary emboli in segmental pulmonary arteries of both upper and lower lobes. There is no right heart strain. ASSESSMENT: 1. Unprovoked pulmonary embolism and right lower extremity deep venous thrombosis in an otherwise stable patient. 2. History of hypothyroidism. 3. History of hypertension. 4. History of diabetes. 5. History of hyperlipidemia. 6. History of coronary artery disease. 7. History of angina pectoris. 8. Degenerative joint disease. 9. Hypothyroidism. PLAN: The patient has an unprovoked DVT and pulmonary embolism. The patient should be treated for at least 6 months. She is going to have to follow with a plasterer foreman to discuss the possibility of an inherited abnormality putting her at high risk. She has no prior history of any of this. There was no trauma to the lower extremities. There is no active cancer in the body. She has not been sedentary; in fact, she has been rather active. Additional recommendations and suggestions are forthcoming. I explained the whole goal of anticoagulation. She knows she will be treated at least 6 months, maybe longer. I will see her in the office in about 10-12 weeks and repeat the CT scan to make sure that her fibrinolytic system is working as it should. Additional recommendations and suggestions are forthcoming. MMODL / IJN: [id number] /
[2019-02-19 20:58] LABS: Glucose,Whole Blood 284 mg/dL (75-99)
[2019-02-19] MEDS ORDERED: ATORVASTATIN 20 MG TAB PO SCH (21:00)
[2019-02-19] MEDS ORDERED: ASPIRIN 81 MG PO SCH (21:00)
[2019-02-19] MEDS ORDERED: metFORMIN 500 MG TAB PO SCH (21:00)
[2019-02-19] MEDS: INSULIN DETEMIR (LEVEMIR) 100 UNIT/ML SYR SQ SCH (21:16)
[2019-02-19] MEDS: METOPROLOL TARTRATE 25 MG TAB PO SCH (21:16)
--- NOTE | 2019-02-19 22:56 | P.CONS ---
History of Present Illness - Reason for Consult Consult date: 02/19/19 Pulmonary Emobolism and DVT Requesting physician: Murray Rizzo - Chief Complaint SOB - History of Present Illness Mrs. Vallejo is a pleasant 64 year-old female with known history of CAD s/p PCI of LAD 03/11, diabetes mellitus, hypertension, and hypothyroid. Over the past week s he felt her right leg hurting and though she "pulled something", over the past few days she has noticed she had become increasingly short of breath. She therefore was reese to emergency at the direction of her close friends for further evaluation. SHe is up to date on all of her preventative care. She denies any personal history of cancer, autoimmune disease, or prior thombolic events. SHe has a family history of breast and ovarian cancer. She denies any recent travel, she denies sedetary lifestyle or increased recent inactivy, she denies any recent trauma. She recently started a new diabetes medications. She is a lifelong non- smoker. Denies alcohol use. No hormonal therapy. She is 3, Para 3, no prior history of difficulty conceiving or miscarriages. She lives an active lifestyle. She denies any recent rashes, new lumps or bumps. Denies any recent unintentional weight loss or night sweats. During her initial evaluation in the ED she was found to have Bilateral Pulmonary Emboli and Lower extremity DVT. She was started on heparin drip and hematology was therefore consulted. Troponins were mildly elevated therefor cardiology did evaluate. Review of Systems A 14 point review of systems assessed and completed and all negative except hPI Past Medical History Past Medical History: Coronary Artery Disease (CAD), Chest Pain / Angina, Diabetes Mellitus, Deep Vein Thrombosis (DVT), Hyperlipidemia, Hypertension, Musculoskeletal Disorder, Osteoarthritis (OA), Pulmonary Embolus (PE), Thyroid Disorder Additional Past Medical History / Comment(s): Palpitations, urinary frequency, l ow back pain History of Any Multi-Drug Resistant Organisms: MRSA Year Discovered:: 2005 MDRO Source:: [employer] Past Surgical History: Bariatric Surgery, Cholecystectomy, Heart Catheterization With Stent, Orthopedic Surgery, Tonsillectomy Additional Past Surgical History / Comment(s): lap removal ovary cyst, LAP BAND. ARTHROSCOPY OF L KNEE. Colonoscopy. I&D of abdominal cyst. Sinus surgery, cataracts Past Anesthesia/Blood Transfusion Reactions: No Reported Reaction Date of Last Stent Placement:: 02/2016 Past Psychological History: Anxiety Additional Psychological History / Comment(s): Patient is independent in her home, she states her grandson lives with her. She drives. Smoking Status: Never smoker Past Alcohol Use History: None Reported Past Drug Use History: None Reported - Past Family History Mother Family Medical History: Cancer Additional Family Medical History / Comment(s): Mother of OVARIAN CANCER at the age of 64yrs.. Father Family Medical History: No Reported History Additional Family Medical History / Comment(s): Father in a motorcycle accident in his 50's. Medications and Allergies Home Medications Medication Instructions Recorded Confirmed Type ALPRAZolam 0.25 mg PO HS PRN 02/09/16 02/18/19 History Aspirin [Adult Low Dose Aspirin EC] 81 mg PO HS 02/09/16 02/18/19 History Levothyroxine Sodium [Synthroid] 50 mcg PO QAM 02/09/16 02/18/19 History Metoprolol Tartrate 25 mg PO BID 02/09/16 02/18/19 History Nitroglycerin Sl Tabs [Nitrostat] 0.4 mg SUBLINGUAL Q5M PRN #25 tab 02/16/16 02/18/19 Rx metFORMIN HCL 1,000 mg PO HS #0 02/16/16 02/18/19 Rx Insulin Glargine,Hum.rec.anlog 40 units SQ BID@0700,199902/18/19 02/18/19 History [Lantus Solostar] Losartan Potassium 100 mg PO DAILY 02/18/19 02/18/19 History Multivitamin [Multivitamins Adult 1 tab PO MOWEFR 02/18/19 02/18/19 History Gummies] Oxybutynin ER [Ditropan Xl] 15 mg PO DAILY 02/18/19 02/18/19 History Semaglutide [Ozempic] 0.25 mg SQ GOLDSTEIN 02/18/19 02/18/19 History Simvastatin [Zocor] 40 mg PO HS 02/18/19 02/18/19 History amLODIPine [Norvasc] 10 mg PO QAM 02/18/19 02/18/19 History glipiZIDE XL [Glucotrol XL] 10 mg PO AC-BRKFST 02/18/19 02/18/19 History Rivaroxaban [Xarelto Starter Pack] 1 each PO DIRECTED #1 tab 02/19/19 Rx Allergies Allergy/AdvReac Type Severity Reaction Status Date / Time No Known Allergies Allergy Verified 02/18/19 22:19 Physical Exam Vitals: Vital Signs Temp Pulse Pulse Resp BP BP Pulse Ox 02/19/19 11:32 98.1 F 77 17 157/78 94 L 02/19/19 07:51 97.8 F 78 17 144/80 93 L 02/19/19 03:44 78 17 129/65 92 L 02/19/19 00:39 98.1 F 89 20 149/77 94 L 02/19/19 00:35 93 19 138/90 95 02/19/19 00:00 96 21 166/86 95 02/18/19 23:03 94 18 180/78 95 02/18/19 22:00 98 18 175/94 95 02/18/19 21:16 97.8 F 103 H 22 162/93 92 L Intake and Output 02/19/19 02/19/19 02/19/19 06:59 14:59 22:59 Intake Total 133.383 356.617 Output Total 900 Balance -766.617 356.617 Intake: Intake, IV Titration 133.383 116.617 Amount Heparin Sod,Pork in 0.45% 133.383 116.617 NaCl 25,000 unit In 0.45 % NaCl 1 250ml.bag @ 18 UNITS/KG/HR 21.228 mls/hr IV .[id number] [facility] Rx#: [id number] Oral 240 Output: Urine 900 Other: Voiding Method Bedside Commode Bedside Commode # Voids 1 Weight 119.6 kg Gen: Alert and oriented x3, NAD HEad : NCNT NEck: Supple No supraclavicular, cervical or axillary adenopathy Lungs: DIminished with occassional expiratory wheeze, no increased effort Heart: Tachy reg Abdomen: Obese, Non distended soft Extremities: No edema, Skin warm and no rash Neuro: No sensory or motor deficits. Results CBC & Chem 7: 02/19/19 04:12 02/18/19 21:33 Labs: Abnormal Lab Results - Last 24 Hours (Table) 02/18/19 02/18/19 02/18/19 Range/Units 21:33 21:33 21:33 RBC 5.51 H (3.80-5.40) m/uL Hct 48.4 H (34.0-46.0) % APTT (22.0-30.0) sec D-Dimer 5.26 H (<0.60) mg/L FEU Chloride 108 H (98-107) mmol/L Carbon Dioxide 17 L (22-30) mmol/L Glucose 288 H (74-99) mg/dL POC Glucose (mg/dL) (75-99) mg/dL Alkaline Phosphatase 144 H (38-126) U/L Troponin I (0.000-0.034) ng/mL 02/18/19 02/19/19 02/19/19 Range/Units 21:33 04:12 04:12 RBC (3.80-5.40) m/uL Hct (34.0-46.0) % APTT 149.7 H* (22.0-30.0) sec D-Dimer (<0.60) mg/L FEU Chloride (98-107) mmol/L Carbon Dioxide (22-30) mmol/L Glucose (74-99) mg/dL POC Glucose (mg/dL) (75-99) mg/dL Alkaline Phosphatase (38-126) U/L Troponin I 0.478 H* 0.390 H* (0.000-0.034) ng/mL 02/19/19 02/19/19 02/19/19 Range/Units 06:05 11:10 11:55 RBC (3.80-5.40) m/uL Hct (34.0-46.0) % APTT (22.0-30.0) sec D-Dimer (<0.60) mg/L FEU Chloride (98-107) mmol/L Carbon Dioxide (22-30) mmol/L Glucose (74-99) mg/dL POC Glucose (mg/dL) 156 H 219 H (75-99) mg/dL Alkaline Phosphatase (38-126) U/L Troponin I 0.217 H* (0.000-0.034) ng/mL 02/19/19 Range/Units 13:04 RBC (3.80-5.40) m/uL Hct (34.0-46.0) % APTT 64.1 H (22.0-30.0) sec D-Dimer (<0.60) mg/L FEU Chloride (98-107) mmol/L Carbon Dioxide (22-30) mmol/L Glucose (74-99) mg/dL POC Glucose (mg/dL) (75-99) mg/dL Alkaline Phosphatase (38-126) U/L Troponin I (0.000-0.034) ng/mL CT scan - chest: report reviewed Venous US: report reviewed Assessment and Plan Plan: Assessment and Rec: New Acute DVT: Bilateral Pulmonary EMboli: - Unprovoked Thrombolic events - Patient with no underlying risk factors or provoking indications, two thrombolic events (DVT and PE), cleared for underlying cardiac etiology - Agree with heparin drip 24 hours, switch to DOAC. Xarelto 15mg po BID x21 days, then 20mg PO daily - FOllow-up with Hematology in 3-4 weeks to review hypercoaguable work-up. She has been provided a prescription for Hypercoaguable work-up blood work on discharge. She will obtain this after discharge. - Likely lifelong anticoagulation therapy
[2019-02-20 05:56] LABS: Glucose,Whole Blood 196 mg/dL (75-99)
[2019-02-20] MEDS ORDERED: LEVOTHYROXINE 50 MCG TAB PO SCH (06:30)
[2019-02-20] MEDS: HEPARIN SOD,PORK IN 0.45% NACL 25,000 UNIT in 0.45% NACL 1 250ML.BAG IV SCH ×2 (07:03→07:56)
[2019-02-20] MEDS ORDERED: glipiZIDE 5 MG TAB PO SCH (07:30)
[2019-02-20] MEDS: INSULIN DETEMIR (LEVEMIR) 100 UNIT/ML SYR SQ SCH (07:35)
[2019-02-20] MEDS: METOPROLOL TARTRATE 25 MG TAB PO SCH (07:54)
[2019-02-20 07:55] LABS: Basophils # (A) 0.1 k/uL (0-0.2); Basophils % (A) 1 %; Eosinophils # (A) 0.3 k/uL (0-0.7); Eosinophils % (A) 4 %; HCT 45.3 % (34.0-46.0); HGB 14.4 gm/dL (11.4-16.0); Lymphocytes # (A) 2.5 k/uL (1.0-4.8); Lymphocytes % (A) 34 %; MCH 28.6 pg (25.0-35.0); MCHC 31.7 g/dL (31.0-37.0); MCV 90.1 fL (80.0-100.0); Mean Platelet Volume 9.2; Monocytes # (A) 0.5 k/uL (0-1.0); Monocytes % (A) 7 %; Neutrophils # (A) 3.9 k/uL (1.3-7.7); Neutrophils % (A) 52 %; Platelet Count 212 k/uL (150-450); RBC 5.03 m/uL (3.80-5.40); RDW 13.8 % (11.5-15.5); WBC 7.5 k/uL (3.8-10.6)
[2019-02-20 08:31] LABS: Prothrombin Time 10.6 sec (9.0-12.0)
[2019-02-20 08:34] LABS: African American GFR (CKD) >90 (>60 ml/min/1.73 sqM); Anion Gap 13 mmol/L; Blood Urea Nitrogen 13 mg/dL (7-17); Calcium 9.1 mg/dL (8.4-10.2); Carbon Dioxide 19 mmol/L (22-30); Chloride 110 mmol/L (98-107); Glucose 187 mg/dL (74-99); Potassium 3.7 mmol/L (3.5-5.1); Sodium 142 mmol/L (137-145)
[2019-02-20] MEDS ORDERED: amLODIPine 10 MG TAB PO SCH (09:00)
[2019-02-20] MEDS ORDERED: OXYBUTYNIN 15 MG TAB.ER.24 PO SCH (09:00)
[2019-02-20] MEDS ORDERED: LOSARTAN 50 MG TAB PO SCH (09:00)
[2019-02-20] MEDS ORDERED: RIVAROXABAN 15 MG TAB PO SCH (09:45)
[2019-02-20 11:52] LABS: Glucose,Whole Blood 233 mg/dL (75-99)
--- NOTE | 2019-02-20 11:56 | PN ---
PROGRESS NOTE Mrs. Vallejo is doing well. She has history of CAD, previous PCI, doing well. She came in with what seems to be a pulmonary embolism, unprovoked, and I recommended a hematology evaluation. Her vitals are stable. S1-S2 heard normally. Lungs are clear. Abdomen and lower extremity exam was unchanged. She can be switched over from IV heparin to Xarelto and can be discharged whenever it is okay with prior hospitalist. I am recommending same medical regimen and to follow up with Dr. Weston in about 2 weeks. Physical exam there are no new significant findings. Vital signs stable. S1-S2 heard normally. Lungs are clear. Abdomen and lower extremity exam unchanged. MMODL / IJN: [id number] /
--- NOTE | 2019-02-20 12:57 | P.DS ---
Providers Date of admission: 02/19/19 00:10 Attending physician: Denny Huang Consults: 02/19/19 00:11 Consult Physician Urgent Consulting Provider: Taylor Schmitz Consult Reason/Comments: pe Do you want consulting provider notified?: Yes Consult Physician Urgent Consulting Provider: Julianna Crisostomo Consult Reason/Comments: Dyspnea, cardiac evaluation, elevated troponin Do you want consulting provider notified?: Yes 02/19/19 12:39 Consult Physician Urgent Consulting Provider: Steve Marie Consult Reason/Comments: multiple PE and DVT anticoagulant Do you want consulting provider notified?: Yes Primary care physician: [facility] Course: 64-year-old female with history of CAD s/p PCI of LAD 03/11, chest pain, angina, diabetes mellitus, hypertension, high cholesterol, musculoskeletal disorder, osteoarthritis and hypothyroid. Patient presents in the emergency department with complaints of exertional shortness of breath for the past week or so. Pt also states she had cramping in her RIGHT calf and kept rubbing cream to help it subside. Pt follows with Dr. Beckman in the office. Pt states has CAD s/p PCI to LAD in 2015, recently stopped taking plavix in September. Pt currently in bed with no acute distress, currently resting. Pt has no current c/o of chest pian, chest pressure, SOB or lower extremity edema. Pt continues with ordered IV heparin for positive DVT of RIGHT lower extremity and positive bilateral PE. Positive D-dimer. Troponins are elevated, 0.478, 0.390. BNP elevated at 589. Pt usually active at home caring for house and grandchildren. Pt states she has had no recent travel or inactivity. Works out 2-3 days weekly at gym. Glucose levels at home range 75-130's.. Workup in ED was significant for chest x-ray which was unremarkable; CT of chest was positive for bilateral PE; EKG shows normal sinus rhythm and troponin elevated at 0.478 Patient is admitted for IV anticoagulation therapy with heparin andfurther treatment of PE and evaluation by cardiology; hematology was consulted and patient was recommended to have extensive hypercoagulable state workup for unprovoked PE; patient was cemented, vitamins cardiology and she was recommended to continue with IV heparin and no further cardiology workup was recommended for elevated troponin. Patient remained stable without any complications and was transitioned to oral anticoagulation with Xarelto and was discharged home in a stable condition with hypercoagulable workup as outpatient and follow-up with hematology for further recommendations Plan - Discharge Summary Discharge Rx Participant: No New Discharge Prescriptions: New Rivaroxaban [Xarelto Starter Pack] 1 each PO DIRECTED #1 tab Rivaroxaban [Xarelto] 15 mg PO BID-W/MEALS tab Continue ALPRAZolam 0.25 mg PO HS PRN PRN Reason: Anxiety Levothyroxine Sodium [Synthroid] 50 mcg PO QAM Metoprolol Tartrate 25 mg PO BID Aspirin [Adult Low Dose Aspirin EC] 81 mg PO HS Nitroglycerin Sl Tabs [Nitrostat] 0.4 mg SUBLINGUAL Q5M PRN #25 tab PRN Reason: Chest Pain metFORMIN HCL 1,000 mg PO HS #0 Simvastatin [Zocor] 40 mg PO HS Multivitamin [Multivitamins Adult Gummies] 1 tab PO MOWEFR Oxybutynin ER [Ditropan Xl] 15 mg PO DAILY Losartan Potassium 100 mg PO DAILY glipiZIDE XL [Glucotrol XL] 10 mg PO AC-BRKFST amLODIPine [Norvasc] 10 mg PO QAM Insulin Glargine,Hum.rec.anlog [Lantus Solostar] 40 units SQ BID@0700,1999 Semaglutide [Ozempic] 0.25 mg SQ GOLDSTEIN Discharge Medication List ALPRAZolam 0.25 mg PO HS PRN 02/09/16 [History] Aspirin [Adult Low Dose Aspirin EC] 81 mg PO HS 02/09/16 [History] Levothyroxine Sodium [Synthroid] 50 mcg PO QAM 02/09/16 [History] Metoprolol Tartrate 25 mg PO BID 02/09/16 [History] Nitroglycerin Sl Tabs [Nitrostat] 0.4 mg SUBLINGUAL Q5M PRN #25 tab 02/16/16 [Rx] metFORMIN HCL 1,000 mg PO HS #0 02/16/16 [Rx] Insulin Glargine,Hum.rec.anlog [Lantus Solostar] 40 units SQ BID@0700,2000 02/18/19 [History] Losartan Potassium 100 mg PO DAILY 02/18/19 [History] Multivitamin [Multivitamins Adult Gummies] 1 tab PO MOWEFR 02/18/19 [History] Oxybutynin ER [Ditropan Xl] 15 mg PO DAILY 02/18/19 [History] Semaglutide [Ozempic] 0.25 mg SQ GOLDSTEIN 02/18/19 [History] Simvastatin [Zocor] 40 mg PO HS 02/18/19 [History] amLODIPine [Norvasc] 10 mg PO QAM 02/18/19 [History] glipiZIDE XL [Glucotrol XL] 10 mg PO AC-BRKFST 02/18/19 [History] Rivaroxaban [Xarelto Starter Pack] 1 each PO DIRECTED #1 tab 02/19/19 [Rx] Rivaroxaban [Xarelto] 15 mg PO BID-W/MEALS tab 02/20/19 [Rx] Follow up Appointment(s)/Referral(s): Kristine Reyes MD [Primary Care Provider] - 1-2 days (Offices are closed at this time. Please call Friday to get a post hospital follow up.) Sharda Wyatt MD [STAFF PHYSICIAN] - 4 Weeks Patient Instructions/Handouts: Pulmonary Embolism (DC), Deep Vein Thrombosis (DC), Blood Thinners (DC) Activity/Diet/Wound Care/Special Instructions: pts 30 day copay of Xarelto is $45 15MG 2x/day with meals for 21 days 20MG Daily after that Discharge Disposition: HOME SELF-CARE
[2019-02-20 13:19] VITALS: BP 156/72; PULSE 68; RESP 16; TEMP 97.8
--- NOTE | 2019-02-20 14:04 | P.PN ---
Subjective Progress Note Date: 02/20/19 Principal diagnosis: Unprovoked pulmonary embolism The patient is seen today 02/20/2019 in follow-up on the selective care unit. She is awake and alert in no acute distress. Sitting up in a chair at the bedside. No shortness of breath, cough or congestion. No hemoptysis. No chest pain. Maintaining good O2 saturations in the 90s on room air. Afebrile. Hemodynamically stable. She's been transitioned to Xarelto. White count 7.5. Hemoglobin 14.4. Creatinine 0.68. Objective - Vital Signs Vital signs: Vital Signs Temp 97.8 F 02/20/19 12:00 Pulse 68 02/20/19 12:00 Resp 16 02/20/19 12:00 BP 156/72 02/20/19 12:00 Pulse Ox 94 L 02/20/19 12:00 Intake & Output 02/19/19 02/20/19 02/20/19 18:59 06:59 18:59 Intake Total 476.617 270 0 Output Total 350 Balance 476.617 270 -350 Weight 120.3 kg Intake: Intake, IV Titration 116.617 250 Amount Heparin Sod,Pork in 0.45% 116.617 250 NaCl 25,000 unit In 0.45 % NaCl 1 250ml.bag @ 18 UNITS/KG/HR 21.228 mls/hr IV .[id number] [facility] Rx#: [id number] Oral 360 20 0 Output: Urine 350 Other: Voiding Method Bedside Commode Bedside Commode Bedside Commode # Voids 1 1 1 # Bowel Movements 1 - Exam GENERAL EXAM: Alert, comfortable pleasant 64-year-old female in no apparent distress. On room air. HEAD: Normocephalic. EYES: Normal reaction of pupils, equal size. NOSE: Clear with pink turbinates. THROAT: No erythema or exudates. NECK: No masses, no JVD. CHEST: No chest wall deformity. LUNGS: Equal air entry with no crackles, wheeze, rhonchi or dullness. CVS: S1 and S2 normal with no audible murmur, regular rhythm. ABDOMEN: No hepatosplenomegaly, normal bowel sounds, no guarding or rigidity. SPINE: No scoliosis or deformity SKIN: No rashes CENTRAL NERVOUS SYSTEM: No focal deficits, tone is normal in all 4 extremities. EXTREMITIES: There is no peripheral edema. No clubbing, no cyanosis. Perip heral pulses are intact. - Labs CBC & Chem 7: 02/20/19 06:29 02/20/19 06:29 Labs: Abnormal Lab Results - Last 24 Hours (Table) 02/19/19 02/19/19 02/19/19 Range/Units 15:43 17:04 20:56 Chloride (98-107) mmol/L Carbon Dioxide (22-30) mmol/L Glucose (74-99) mg/dL POC Glucose (mg/dL) 166 H 284 H (75-99) mg/dL Troponin I 0.176 H* (0.000-0.034) ng/mL 02/20/19 02/20/19 02/20/19 Range/Units 05:55 06:29 11:50 Chloride 110 H (98-107) mmol/L Carbon Dioxide 19 L (22-30) mmol/L Glucose 187 H (74-99) mg/dL POC Glucose (mg/dL) 196 H 233 H (75-99) mg/dL Troponin I (0.000-0.034) ng/mL Assessment and Plan Assessment: Impression: #1 Dyspnea on exertion secondary to bilateral pulmonary emboli. #2 Right lower extremity edema secondary to her right lower extremity DVT. Her grafts #3 Coronary artery disease. #3 Diabetes mellitus. #4 Hyperlipidemia. #5 Hypertension. #6 Osteoarthritis. #7 Hypothyroidism. Plan: The patient was seen and evaluated by Dr. Bergman. She is cleared for discharge from the pulmonary standpoint. Continue with Xarelto at least 6 months. Repeat computed tomography scan of the chest done 10 weeks. She will follow-up in our office in 1-2 weeks' time. She is however encouraged to call sooner with any worsening of symptoms or other questions or concerns I, the cosigning physician, performed a history & physical examination of the patient. Lungs sounds are clear. Maintaining good O2 saturations in the 90s on room air. I discussed the assessment and plan of care with my nurse practitioner, Caterina Ragsdale. I attest to the above note as dictated by her.
== END 2019-02-20 13:45 | disposition home or self-care (01) | DRG 299 ==
LOC: EC 21:14 → 3SCARD 02-19 00:10
PROVIDERS: ADMIT Internal Medicine; ATTEND Internal Medicine
DX: I82.4Z1 Acute embolism and thrombosis of unspecified deep veins of right distal lower extremity (principal); I26.99 Other pulmonary embolism without acute cor pulmonale; I25.10 Atherosclerotic heart disease of native coronary artery without angina pectoris; I10 Essential (primary) hypertension; E78.5 Hyperlipidemia, unspecified; E11.9 Type 2 diabetes mellitus without complications; M19.90 Unspecified osteoarthritis, unspecified site; E07.9 Disorder of thyroid, unspecified; E03.9 Hypothyroidism, unspecified; E78.00 Pure hypercholesterolemia, unspecified; R74.8 Abnormal levels of other serum enzymes; F41.9 Anxiety disorder, unspecified; Z79.01 Long term (current) use of anticoagulants; Z79.4 Long term (current) use of insulin; Z79.82 Long term (current) use of aspirin; Z79.890 Hormone replacement therapy; Z79.899 Other long term (current) drug therapy; Z80.3 Family history of malignant neoplasm of breast; Z80.41 Family history of malignant neoplasm of ovary; Z86.14 Personal history of Methicillin resistant Staphylococcus aureus infection; Z98.61 Coronary angioplasty status; Z86.711 Personal history of pulmonary embolism; Z90.49 Acquired absence of other specified parts of digestive tract; Z98.890 Other specified postprocedural states
CPT/HCPCS: 36415; 71046; 71275; 80048; 80053; 82550; 83880; 84484; 85025; 85379; 85610; 85730; 93005; 96365; 96366; 96376; 99291

== ENCOUNTER 2019-03-24 04:31 | Emergency (ER) | payer MEDICARE ==
[2019-03-24 05:42] LABS: Basophils # (A) 0.1 k/uL (0-0.2); Basophils % (A) 1 %; Eosinophils # (A) 0.3 k/uL (0-0.7); Eosinophils % (A) 4 %; HCT 46.3 % (34.0-46.0); HGB 14.8 gm/dL (11.4-16.0); Lymphocytes # (A) 1.9 k/uL (1.0-4.8); Lymphocytes % (A) 29 %; MCH 28.4 pg (25.0-35.0); MCV 88.7 fL (80.0-100.0); Monocytes # (A) 0.5 k/uL (0-1.0); Monocytes % (A) 7 %; Neutrophils # (A) 3.7 k/uL (1.3-7.7); Neutrophils % (A) 56 %; Platelet Count 253 k/uL (150-450); RBC 5.21 m/uL (3.80-5.40); RDW 13.6 % (11.5-15.5); WBC 6.7 k/uL (3.8-10.6)
[2019-03-24 05:50] LABS: African American GFR (CKD) >90 (>60 ml/min/1.73 sqM); Anion Gap 11 mmol/L; Blood Urea Nitrogen 14 mg/dL (7-17); Calcium 9.7 mg/dL (8.4-10.2); Carbon Dioxide 19 mmol/L (22-30); Chloride 112 mmol/L (98-107); Glucose 141 mg/dL (74-99); Non-African American GFR(CKD) >90 (>60 ml/min/1.73 sqM); Potassium 3.8 mmol/L (3.5-5.1); Sodium 142 mmol/L (137-145)
[2019-03-24 06:17] VITALS: TEMP 97.9
--- NOTE | 2019-03-24 06:50 | ED ---
Lower Extremity Injury HPI - General Source: patient Mode of arrival: ambulatory Limitations: no limitations - History of Present Illness MD Complaint: leg injury -: hour(s) Injury: Leg: Left Type of Injury: unknown Place: home Severity: moderate Improves With: nothing Worsens With: palpation Associated Symptoms: swelling <Tee Jin - Last Filed: 03/24/19 06:43> <Murray Rizzo - Last Filed: 03/24/19 07:44> - General Chief Complaint: Extremity Injury, Lower Stated Complaint: Possible Blood Clot Time Seen by Provider: 03/24/19 04:42 - History of Present Illness Initial Comments: This patient is 64-year-old woman who presents to be valid for pain to the lateral aspect of the left lower leg. Patient states that she noticed this tonight while she was in bed. She states she rolled and as soon as that part of her leg touch the batting she noted pain. Patient became concerned because in January she was diagnosed with DVT as well as PE. The patient states that she is taking Xarelto 20 mg per day and has not missed any doses. She is denying any chest symptoms. No new leg swelling. He did not recall any inciting injury. (Tee Jin) - Related Data Home Medications Medication Instructions Recorded Confirmed ALPRAZolam 0.25 mg PO HS PRN 02/09/16 03/24/19 Aspirin [Adult Low Dose Aspirin EC] 81 mg PO HS 02/09/16 03/24/19 Levothyroxine Sodium [Synthroid] 50 mcg PO QAM 02/09/16 03/24/19 Metoprolol Tartrate 25 mg PO BID 02/09/16 03/24/19 Insulin Glargine,Hum.rec.anlog 40 units SQ BID@0700,199902/18/19 03/24/19 [Lantus Solostar] Losartan Potassium 100 mg PO DAILY 02/18/19 03/24/19 Multivitamin [Multivitamins Adult 1 tab PO MOWEFR 02/18/19 03/24/19 Gummies] Oxybutynin ER [Ditropan Xl] 15 mg PO DAILY 02/18/19 03/24/19 Semaglutide [Ozempic] 0.25 mg SQ GOLDSTEIN 02/18/19 03/24/19 Simvastatin [Zocor] 40 mg PO HS 02/18/19 03/24/19 amLODIPine [Norvasc] 10 mg PO QAM 02/18/19 03/24/19 glipiZIDE XL [Glucotrol XL] 10 mg PO AC-BRKFST 02/18/19 03/24/19 Rivaroxaban [Xarelto] 20 mg PO DAILY 03/24/19 03/24/19 Previous Rx's Medication Instructions Recorded Nitroglycerin Sl Tabs [Nitrostat] 0.4 mg SUBLINGUAL Q5M PRN #25 tab 02/16/16 metFORMIN HCL 1,000 mg PO HS #0 02/16/16 Allergies Allergy/AdvReac Type Severity Reaction Status Date / Time No Known Allergies Allergy Verified 03/24/19 07:38 Review of Systems ROS Other: All systems not noted in ROS Statement are negative. Constitutional: Denies: fever, chills, weakness Respiratory: Denies: cough, dyspnea, hemoptysis Cardiovascular: Denies: chest pain, palpitations, orthopnea, edema, syncope Gastrointestinal: Denies: abdominal pain, vomiting Musculoskeletal: Reports: as per HPI, myalgia. Denies: back pain Skin: Denies: rash Neurological: Denies: weakness, numbness, paresthesias <Tee Jin - Last Filed: 03/24/19 06:43> ROS Other: All systems not noted in ROS Statement are negative. <Murray Rizzo - Last Filed: 03/24/19 07:44> ROS Statement: Those systems with pertinent positive or pertinent negative responses have been documented in the HPI. Past Medical History Past Medical History: Coronary Artery Disease (CAD), Chest Pain / Angina, Diabetes Mellitus, Deep Vein Thrombosis (DVT), Hyperlipidemia, Hypertension, Musculoskeletal Disorder, Osteoarthritis (OA), Pulmonary Embolus (PE), Thyroid Disorder Additional Past Medical History / Comment(s): Palpitations, urinary frequency, low back pain, DVT with PE, History of Any Multi-Drug Resistant Organisms: MRSA Date of last positivie culture/infection: 2005 MDRO Source:: [employer] Past Surgical History: Bariatric Surgery, Cholecystectomy, Heart Catheterization With Stent, Orthopedic Surgery, Tonsillectomy Additional Past Surgical History / Comment(s): lap removal ovary cyst, LAP BAND. ARTHROSCOPY OF L KNEE. Colonoscopy. I&D of abdominal cyst. Sinus surgery, cataracts, Past Anesthesia/Blood Transfusion Reactions: No Reported Reaction Date of Last Stent Placement:: 02/2016 Past Psychological History: Anxiety Smoking Status: Never smoker Past Alcohol Use History: None Reported Past Drug Use History: None Reported - Past Family History Mother Family Medical History: Cancer Additional Family Medical History / Comment(s): Mother of OVARIAN CANCER at the age of 64yrs.. Father Family Medical History: No Reported History Additional Family Medical History / Comment(s): Father in a motorcycle acci dent in his 50's. <Tee Jin - Last Filed: 03/24/19 06:43> General Exam Limitations: no limitations General appearance: alert, in no apparent distress Head exam: Present: atraumatic, normocephalic Eye exam: Present: normal appearance. Absent: scleral icterus, conjunctival injection Respiratory exam: Present: normal lung sounds bilaterally. Absent: respiratory distress, wheezes, rales, rhonchi, stridor Cardiovascular Exam: Present: regular rate, normal rhythm, normal heart sounds. Absent: systolic murmur, diastolic murmur, rubs, gallop GI/Abdominal exam: Present: soft. Absent: tenderness Extremities exam: Present: normal inspection, tenderness, normal capillary refill, calf tenderness (Patient has what may be an early contusion to the lateral aspect of the left lower leg, at about the mid level of the tibia. No palpable cord.). Absent: pedal edema Back exam: Present: normal inspection. Absent: CVA tenderness (R), CVA tenderness (L), vertebral tenderness Neurological exam: Present: alert Skin exam: Present: warm, dry, intact, normal color. Absent: rash <Tee Jin - Last Filed: 03/24/19 06:43> Course Vital Signs 03/24/19 03/24/19 04:38 06:16 Temperature 97.7 F 97.9 F Pulse Rate 77 85 Respiratory 18 17 Rate Blood Pressure 165/85 136/73 O2 Sat by Pulse 99 96 Oximetry Medical Decision Making - Lab Data Result diagrams: 03/24/19 05:30 03/24/19 05:30 <Tee Jin - Last Filed: 03/24/19 06:43> - Lab Data Result diagrams: 03/24/19 05:30 03/24/19 05:30 - Radiology Data Radiology results: report reviewed (Ultrasound leg negative for DVT. Suspected superficial hematoma 0.5 cm) <Murray Rizzo - Last Filed: 03/24/19 07:44> - Medical Decision Making Case endorsed to me for probable discharge pending ultrasound report. On exam patient does have small superficial area of swelling left lateral lower leg. This is consistent with hematoma. Patient states she noticed this while rolling over in bed. Night. Patient updated on results and need for follow-up. (Murray Rizzo) - Lab Data Lab Results 03/24/19 03/24/19 03/24/19 Range/Units 05:30 05:30 05:30 WBC 6.7 (3.8-10.6) k/uL RBC 5.21 (3.80-5.40) m/uL Hgb 14.8 (11.4-16.0) gm/dL Hct 46.3 H (34.0-46.0) % MCV 88.7 (80.0-100.0) fL MCH 28.4 (25.0-35.0) pg MCHC 32.0 (31.0-37.0) g/dL RDW 13.6 (11.5-15.5) % Plt Count 253 (150-450) k/uL Neutrophils % 56 % Lymphocytes % 29 % Monocytes % 7 % Eosinophils % 4 % Basophils % 1 % Neutrophils # 3.7 (1.3-7.7) k/uL Lymphocytes # 1.9 (1.0-4.8) k/uL Monocytes # 0.5 (0-1.0) k/uL Eosinophils # 0.3 (0-0.7) k/uL Basophils # 0.1 (0-0.2) k/uL D-Dimer 0.54 (<0.60) mg/L FEU Sodium 142 (137-145) mmol/L Potassium 3.8 (3.5-5.1) mmol/L Chloride 112 H (98-107) mmol/L Carbon Dioxide 19 L (22-30) mmol/L Anion Gap 11 mmol/L BUN 14 (7-17) mg/dL Creatinine 0.59 (0.52-1.04) mg/dL Est GFR (CKD-EPI)AfAm >90 (>60 ml/min/1.73 sqM) Est GFR (CKD-EPI)NonAf >90 (>60 ml/min/1.73 sqM) Glucose 141 H (74-99) mg/dL Calcium 9.7 (8.4-10.2) mg/dL Disposition <Tee Jin - Last Filed: 03/24/19 06:43> Is patient prescribed a controlled substance at d/c from ED?: No Time of Disposition: 07:44 <Murray Rizzo - Last Filed: 03/24/19 07:44> Clinical Impression: Hematoma Disposition: HOME SELF-CARE Condition: Stable Instructions (If sedation given, give patient instructions): Hematoma (ED) Additional Instructions: Please follow-up with primary care physician in the next couple days for recheck. If hematoma does not resolve you may need further study like MRI in the future. Return for increased pain, swelling, redness or fever, worsening symptoms or other concerns. Referrals: Kristine Reyes MD [Primary Care Provider] - 1-2 days
--- NOTE | 2019-03-24 07:37 | US ---
EXAMINATION TYPE: US venous doppler duplex LE LT DATE OF EXAM: 03/24/2019 7:28 AM COMPARISON: NONE CLINICAL HISTORY: Pain. Lump on left calf. Hx of blood clot on blood thinners. SIDE PERFORMED: Left TECHNIQUE: The lower extremity deep venous system is examined utilizing real time linear array sonog ant with graded compression, doppler sonography and color-flow sonography. VESSELS IMAGED: External Iliac Vein (EIV) Common Femoral Vein Deep Femoral Vein Greater Saphenous Vein * Femoral Vein Popliteal Vein Small Saphenous Vein * Proximal Calf Veins (* superficial vessels) Grayscale, color doppler, spectral doppler imaging performed of the deep veins of the left lower extr emity. There is normal flow, compressibility, vascular waveforms. Left Leg: Negative for DVT Complex area left lateral calf area of lump .4 x .4 x .5cm. IMPRESSION: 1. No sonographic evidence of deep venous thrombosis within the left lower extremity. 2. At the site of palpable abnormality within the left calf there is a solid-appearing slightly irreg ular 0.5 cm mass in the subcutaneous tissues that is avascular. Primary consideration would be for he matoma in the setting of recent trauma. This does not appear to be connected to any other vascular st ructures and does not appear to represent a superficial venous thrombosis. If no recent trauma MRI wi th contrast with the recommended for further evaluation.
[2019-03-24 08:09] VITALS: BP 140/85; PULSE 84; RESP 16
== END 2019-03-24 08:09 | disposition home or self-care (01) ==
LOC: EC 04:31
DX: S80.12XA Contusion of left lower leg, initial encounter (principal); I25.10 Atherosclerotic heart disease of native coronary artery without angina pectoris; E11.9 Type 2 diabetes mellitus without complications; E78.5 Hyperlipidemia, unspecified; I10 Essential (primary) hypertension; E07.9 Disorder of thyroid, unspecified; Z86.718 Personal history of other venous thrombosis and embolism; Z86.711 Personal history of pulmonary embolism; Z86.14 Personal history of Methicillin resistant Staphylococcus aureus infection; Z95.5 Presence of coronary angioplasty implant and graft; Z87.39 Personal history of other diseases of the musculoskeletal system and connective tissue; Z79.82 Long term (current) use of aspirin; Z79.890 Hormone replacement therapy; Z79.4 Long term (current) use of insulin; Z79.01 Long term (current) use of anticoagulants; Z79.899 Other long term (current) drug therapy; Y92.009 Unspecified place in unspecified non-institutional (private) residence as the place of occurrence of the external cause
CPT/HCPCS: 36415; 80048; 85025; 85379; 99284

== ENCOUNTER → 2020-10-17 | Outpatient (CLI) | payer MEDICARE ==
--- NOTE | 2020-10-18 18:42 | BD ---
EXAMINATION TYPE: Axial Bone Density DATE OF EXAM: 10/17/2020 COMPARISON: 06/25/2012 CLINICAL HISTORY: Postmenopausal screening Height: 67 Weight: 266.9 FRAX RISK QUESTIONS: Alcohol (3 or more units per day): no Family History (Parent hip fracture): yes Glucocorticoids (More than 3mos): no (Ex: prednisone, prednisolone, methylprednisolone, dexamethasone, and hydrocortisone). History of Fracture in Adulthood: no Secondary Osteoporosis: 1. Type 1 Diabetes: no 2. Hyperthyroidism: no 3. Menopause before 45: no 4. Malnutrition: no 5. Chronic liver disease: no Rheumatoid Arthritis: no Current Tobacco Use: no RISK FACTORS HISTORY OF: Family History of Osteoporosis: yes Active: no Diet low in dairy products/other sources of calcium: yes Postmenopausal woman: age 47 Lost more than 2 inches in height since high school: no MEDICATIONS: type 2 diabetic meds, blood pressure meds, oxybutynin Thyroid Medications: thyroid How Lon years Additional History: EXAM MEASUREMENTS: Bone mineral densitometry was performed using the NanoLumens System. Bone mineral density as measured about the Lumbar spine is: ----- L1-L4(G/cm2): 1.408 T Score Values are as follows: ----- L2: 2.3 ----- L3: 2.5 ----- L4: 1.9 ----- L1-L4: 1.9 Bone mineral density has: increased 1.0 % since study of: 06.25.2012 Bone mineral density about the R hip (g/cm2): 0.948 Bone mineral density about the L hip (g/cm2): 0.940 T Score values are as follows: -----R Neck: -0.6 -----L Neck: -0.7 -----R Total: -0.5 -----L Total: -0.1 Bone mineral density has: decreased -9.3 % since study of: 06.25.2012 IMPRESSION: Normal (Values between +1 and -1 indicate normal bone mass). Consider repeating this study in 5 year s or sooner if there is some new clinical indication. NOTE: T-SCORE=SD OF THE YOUNG ADULT MEAN.
--- NOTE | 2020-10-19 14:21 | MM ---
Reason for exam: screening (asymptomatic). Last mammogram was performed 3 years and 5 months ago. History: Patient is postmenopausal. Physical Findings: A clinical breast exam by your physician is recommended on an annual basis and results should be correlated with mammographic findings. MG 3D Screening Mammo W/Cad Bilateral CC and MLO view(s) were taken. Prior study comparison: May 19, 2017, bilateral MG screening mammo w CAD. November 13, 2015, bilateral MG screening mammo w CAD. The breast tissue is almost entirely fat. No significant changes when compared with prior studies. ASSESSMENT: Negative, BI-RAD 1 RECOMMENDATION: Routine screening mammogram of both breasts in 1 year.
== END | disposition home or self-care (01) ==
LOC: RADMAMWWP 15:10
PROVIDERS: ATTEND Family Medicine
DX: Z12.31 Encounter for screening mammogram for malignant neoplasm of breast (principal); Z78.0 Asymptomatic menopausal state
CPT/HCPCS: 77063; 77067; 77080

== ENCOUNTER → 2020-11-16 | Outpatient (CLI) | payer MEDICARE ==
--- NOTE | 2020-11-16 15:33 | XR ---
EXAMINATION TYPE: XR ankle limited RT DATE OF EXAM: 11/16/2020 COMPARISON: NONE HISTORY: Pain TECHNIQUE: Frontal, lateral and oblique images of the right ankle are obtained. COMPARISON: None. FINDINGS: There is no acute fracture/dislocation evident. The joint spaces appear within normal gerard its. The overlying soft tissue appears unremarkable. Moderate dorsal calcaneal spurring smaller plan tar calcaneal spur identified. IMPRESSION: There is no acute fracture or dislocation seen.
== END | disposition home or self-care (01) ==
LOC: RADXRMAIN 14:13
PROVIDERS: ATTEND Family Medicine
DX: M25.571 Pain in right ankle and joints of right foot (principal)

== ENCOUNTER → 2022-05-07 | Outpatient (CLI) | payer MEDICARE ==
--- NOTE | 2022-05-07 08:53 | US ---
EXAMINATION TYPE: US abdomen complete DATE OF EXAM: 05/07/2022 COMPARISON: NONE CLINICAL HISTORY: R11.0 NAUSEA. Intermittent abdomen and back pain x 6 months, history of cholecystec prince TECHNIQUE: Multiple sonographic images of the abdomen are obtained. FINDINGS: EXAM MEASUREMENTS: Liver Length: 18.2 cm CBD: 0.5 cm Spleen: 12.4 cm Right Kidney: 10.1 x 5.3 x 5.7 cm Left Kidney: 10.8 x 5.9 x 5.6 cm Difficult and limited study due to patient body habitus Pancreas: visualized portions wnl, limited by overlying midline bowel gas Liver: enlarged, increased attenuation, decreased visualization of vessels suggestive of fatty infil trate Gallbladder: surgically absent Evidence for sonographic Schneider's sign: no CBD: visualized portions wnl, limited by overlying bowel gas Spleen: visualized portions wnl, limited by overlying bowel gas Right Kidney: wnl Left Kidney: 3.5 x 2.7 x 2.5cm exophytic hypoechoic area superior pole Upper IVC: wnl Abd Aorta: proximal portion obscured by overlying midline bowel gas, mid and distal portions appear wnl The intrahepatic portion of the IVC and proximal abdominal aorta are within normal limits. Common bi le duct is unremarkable. The visualized portions of the pancreas are homogenous. The spleen is unre markable. Kidneys are symmetric and free of hydronephrosis. IMPRESSION: 1. Hepatic steatosis with hepatomegaly. 2. Exophytic nonspecific hypoechoic lesion left kidney. CT correlation recommended.
== END | disposition home or self-care (01) ==
LOC: RADUSWWP 07:41
PROVIDERS: ATTEND Family Medicine
DX: K76.0 Fatty (change of) liver, not elsewhere classified (principal); N28.89 Other specified disorders of kidney and ureter
CPT/HCPCS: 76700

== ENCOUNTER → 2022-05-23 | Outpatient (CLI) | payer MEDICARE ==
[2022-05-23 13:36] LABS: African American GFR (CKD) >90 (>60 ml/min/1.73 sqM); Blood Urea Nitrogen 15 mg/dL (7-17); Non-African American GFR(CKD) 90 (>60 ml/min/1.73 sqM)
--- NOTE | 2022-05-23 14:08 | CT ---
EXAMINATION TYPE: CT abdomen w con DATE OF EXAM: 05/23/2022 COMPARISON: 02/18/19 cta chest HISTORY: Cyst on kidney CT DLP: 2955.2 mGycm CONTRAST: CT scan of the abdomen is performed with Oral Contrast and with IV Contrast, patient injected with 70 mL of Isovue 300. FINDINGS: LUNG BASES-: No visible nodule. Pleural-based nodular density right lower lobe is unchanged from prio r study. LIVER/GB: No calcified gallstones. No space occupying hepatic lesion. Biliary tree is of normal ca liber. PANCREAS: No inflammation. No distinct mass. SPLEEN: No splenic enlargement. No lesion seen. ADRENALS: No nodule. No thickening. KIDNEYS/BLADDER: No hydronephrosis. No nephrolithiasis. Simple appearing cyst upper pole left kidne y measures 3.3 cm and is unchanged from prior CT of the chest. No solid renal masses are detected. BOWEL: Visualized bowel are grossly unremarkable. LYMPH NODES: No greater than 1cm abdominal or pelvic lymph nodes are appreciated. AORTA: No significant abnormality. OSSEOUS STRUCTURES: No significant abnormality is seen. OTHER: No significant additional abnormality is seen. IMPRESSION: 1. Simple appearing cyst upper pole left kidney measures 3.3 cm and is unchanged from prior CT of the chest.
== END | disposition home or self-care (01) ==
LOC: RADCTMAIN 12:52
PROVIDERS: ATTEND Family Medicine
DX: Z01.812 Encounter for preprocedural laboratory examination (principal); N28.1 Cyst of kidney, acquired
CPT/HCPCS: 82565; 84520; 74160; 36415; Q9967 ×2

== ENCOUNTER → 2023-05-27 | Outpatient (CLI) | payer MEDICARE ==
--- NOTE | 2023-05-28 08:10 | MM ---
Reason for Exam: Screening (asymptomatic). Last mammogram was performed 2 year(s) and 8 month(s) ago. Patient History: Menarche at age 12. First Full-Term at age 19. Postmenopausal. Mother had ovarian cancer, age 60. Risk Values: Crystal 5 year model risk: 1.5%. NCI Lifetime model risk: 4.8%. Prior Study Comparison: 11/13/2015 Bilateral Screening Mammogram, [facility]. 05/19/2017 Bilateral Screening Mammogram, [facility]. 10/17/2020 Bilateral Screening Mammogram, [facility]. Tissue Density: There are scattered fibroglandular densities. Findings: Analyzed By CAD. There is no suspicious group of microcalcifications or new suspicious mass in either breast. Benign round calcifications within both breasts. Overall Assessment: Benign, BI-RAD 2 Management: Screening Mammogram of both breasts in 1 year. A clinical breast exam by your physician is recommended on an annual basis and results should be correlated with mammographic findings. Note on Crystal scores and lifetime risk: 1. A Crystal score greater than 3% is considered moderate risk. If this is the case, consider specialist referral to assess eligibility for a risk reducing agent. If overall lifetime risk for the development of breast cancer is 20% or higher, the patient may qualify for future screening with alternating mammogram and breast MRI. Electronically signed and approved by: Manuel Layne D.O.
== END | disposition home or self-care (01) ==
LOC: RADMAMWWP 13:06
PROVIDERS: ATTEND Family Medicine
DX: Z12.31 Encounter for screening mammogram for malignant neoplasm of breast (principal); Z78.0 Asymptomatic menopausal state
CPT/HCPCS: 77063; 77067

== ENCOUNTER 2023-09-22 19:21 | Observation (INO) | payer MEDICARE ==
[2023-09-22] MEDS ORDERED: SODIUM CHLORIDE 0.9% 1,000 ML IV STA (20:23)
[2023-09-22 22:08] LABS: Basophils # (A) 0.1 k/uL (0-0.2); Basophils % (A) 1 %; Eosinophils # (A) 0.2 k/uL (0-0.7); Eosinophils % (A) 2 %; HCT 41.9 % (34.0-46.0); HGB 13.8 gm/dL (11.4-16.0); Lymphocytes # (A) 2.2 k/uL (1.0-4.8); Lymphocytes % (A) 27 %; MCH 29.3 pg (25.0-35.0); MCHC 32.9 g/dL (31.0-37.0); Monocytes # (A) 0.4 k/uL (0-1.0); Monocytes % (A) 5 %; Neutrophils # (A) 5.2 k/uL (1.3-7.7); Neutrophils % (A) 63 %; Platelet Count 256 k/uL (150-450); RBC 4.71 m/uL (3.80-5.40); RDW 13.5 % (11.5-15.5); WBC 8.2 k/uL (3.8-10.6)
[2023-09-22 22:18] LABS: Partial Thromboplastin Time 23.8 sec (22.0-30.0); Prothrombin Time 10.8 sec (10.0-12.5)
[2023-09-22 22:20] LABS: ALT 21 U/L (4-34); AST 21 U/L (14-36); African American GFR (CKD) >90 (>60 ml/min/1.73 sqM); Albumin 4.1 g/dL (3.5-5.0); Alkaline Phosphatase 108 U/L (38-126); Anion Gap 12 mmol/L; Blood Urea Nitrogen 17 mg/dL (7-17); Calcium 9.3 mg/dL (8.4-10.2); Carbon Dioxide 16 mmol/L (22-30); Chloride 112 mmol/L (98-107); Glucose 367 mg/dL (74-99); Non-African American GFR(CKD) >90 (>60 ml/min/1.73 sqM); Potassium 3.6 mmol/L (3.5-5.1); Sodium 140 mmol/L (137-145); Total Bilirubin 0.7 mg/dL (0.2-1.3); Total Protein 6.8 g/dL (6.3-8.2)
--- NOTE | 2023-09-23 00:19 | CT ---
EXAM: CT Angiography Abdomen and Pelvis With Intravenous Contrast CLINICAL HISTORY: ITS.REASON CT Reason: Hx colonoscopy. GI Bleed protocol TECHNIQUE: Axial computed tomographic angiography images of the abdomen and pelvis with intravenous contrast. CTDI is 39.6 mGy and DLP is 6091.4 mGy-cm. This CT exam was performed using one or more of the following dose reduction techniques: automated exposure control, adjustment of the mA and/or kV according to patient size, and/or use of iterative reconstruction technique. MIP reconstructed images were created and reviewed. COMPARISON: No relevant prior studies available. FINDINGS: VASCULATURE: Aorta: Atherosclerotic changes of the aorta. No abdominal aortic aneurysm. No dissection. Celiac trunk and mesenteric arteries: No acute findings. No occlusion or significant stenosis. Renal arteries: No acute findings. No occlusion or significant stenosis. Iliac arteries: No acute findings. No occlusion or significant stenosis. Lung bases: Unremarkable. No mass. No consolidation. ABDOMEN: Liver: Unremarkable. No mass. Gallbladder and bile ducts: Unremarkable. No calcified stones. No ductal dilation. Pancreas: Unremarkable. No ductal dilation. No mass. Spleen: Unremarkable. No splenomegaly. Adrenals: Unremarkable. No mass. Kidneys and ureters: LEFT renal cyst measures 3.7 cm. No hydronephrosis. Stomach and bowel: Surgical clips are present in the rectum. There is also contrast blush in the rectum, concern for source of gastrointestinal bleed. Gastric urology follow-up recommended. Diverticulosis, without acute diverticulitis. No small bowel obstruction. No free intraperitoneal air. PELVIS: Appendix: No findings to suggest acute appendicitis. Bladder: Unremarkable. No mass. Reproductive: Unremarkable as visualized. ABDOMEN and PELVIS: Intraperitoneal space: Unremarkable. No significant fluid collection. No free air. Bones/joints: Degenerative changes of the spine. No acute fracture. No dislocation. Soft tissues: Unremarkable. Lymph nodes: Unremarkable. No enlarged lymph nodes. Tubes, lines and devices: Percutaneous abdominal catheter. IMPRESSION: Surgical clips are present in the rectum. There is also contrast blush in the rectum, concern for source of gastrointestinal bleed. Gastric urology follow-up recommended.
--- NOTE | 2023-09-23 01:21 | ED ---
General Adult HPI - General Chief complaint: GI Bleed Stated complaint: Rectal Bleeding Time Seen by Provider: 09/22/23 20:04 Source: patient Mode of arrival: ambulatory Limitations: no limitations - History of Present Illness Initial comments: 68-year-old female presenting to the ED with a chief complaint of GI bleeding. Patient states approximately a week ago had a colonoscopy performed by Dr. Rao. States today she was just at a restaurant when she felt a sudden urge to go to the bathroom. States when she went to the bathroom she had blood clots come out of her rectum. Otherwise, patient denies dizziness, lightheadedness, palpitations, abdominal pain. Otherwise no changes in bowel movements or urinary habits. - Related Data Home Medications Medication Instructions Recorded Confirmed ALPRAZolam 0.25 mg PO HS PRN 02/09/16 03/24/19 Aspirin [Adult Low Dose Aspirin EC] 81 mg PO HS 02/09/16 03/24/19 Levothyroxine Sodium [Synthroid] 50 mcg PO QAM 02/09/16 03/24/19 Metoprolol Tartrate 25 mg PO BID 02/09/16 03/24/19 Insulin Glargine,Hum.rec.anlog 40 units SQ BID@0700,199902/18/19 03/24/19 [Lantus Solostar Pen] Losartan Potassium 100 mg PO DAILY 02/18/19 03/24/19 Multivitamin [Multivitamins Adult 1 tab PO MOWEFR 02/18/19 03/24/19 Gummies] Oxybutynin ER [Ditropan XL] 15 mg PO DAILY 02/18/19 03/24/19 Semaglutide [Ozempic] 0.25 mg SQ GOLDSTEIN 02/18/19 03/24/19 Simvastatin [Zocor] 40 mg PO HS 02/18/19 03/24/19 amLODIPine [Norvasc] 10 mg PO QAM 02/18/19 03/24/19 glipiZIDE XL [Glucotrol XL] 10 mg PO AC-BRKFST 02/18/19 03/24/19 Rivaroxaban [Xarelto] 20 mg PO DAILY 03/24/19 03/24/19 Previous Rx's Medication Instructions Recorded Nitroglycerin Sl Tabs [Nitrostat] 0.4 mg SUBLINGUAL Q5M PRN #25 tab 02/16/16 metFORMIN HCL [Glucophage] 1,000 mg PO HS #0 02/16/16 Allergies Allergy/AdvReac Type Severity Reaction Status Date / Time No Known Allergies Allergy Verified 09/22/23 19:53 Review of Systems ROS Statement: Those systems with pertinent positive or pertinent negative responses have been documented in the HPI. ROS Other: All systems not noted in ROS Statement are negative. Past Medical History Past Medical History: Coronary Artery Disease (CAD), Chest Pain / Angina, Diabetes Mellitus, Deep Vein Thrombosis (DVT), Hyperlipidemia, Hypertension, Musculoskeletal Disorder, Osteoarthritis (OA), Pulmonary Embolus (PE), Thyroid Disorder Additional Past Medical History / Comment(s): Palpitations, urinary frequency, low back pain, DVT with PE, History of Any Multi-Drug Resistant Organisms: MRSA Date of last positivie culture/infection: 2005 MDRO Source:: [place] [employer] Past Surgical History: Bariatric Surgery, Cholecystectomy, Heart Catheterization With Stent, Orthopedic Surgery, Tonsillectomy Additional Past Surgical History / Comment(s): lap removal ovary cyst, LAP BAND. ARTHROSCOPY OF L KNEE. Colonoscopy. I&D of abdominal cyst. Sinus surgery, cataracts, Past Anesthesia/Blood Transfusion Reactions: No Reported Reaction Date of Last Stent Placement:: 02/2016 Past Psychological History: Anxiety Smoking Status: Never smoker Past Alcohol Use History: None Reported Past Drug Use History: None Reported - Past Family History Mother Family Medical History: Cancer Additional Family Medical History / Comment(s): Mother of OVARIAN CANCER at the age of 64yrs.. Father Family Medical History: No Reported History Additional Family Medical History / Comment(s): Father in a motorcycle accident in his 50's. General Exam Limitations: no limitations General appearance: alert, in no apparent distress Eye exam: Present: normal appearance Neck exam: Present: normal inspection Respiratory exam: Present: normal lung sounds bilaterally Cardiovascular Exam: Present: regular rate, normal rhythm GI/Abdominal exam: Present: soft (No tenderness to palpation. No rebound guarding or rigidity. Abdomen does appear distended.) Rectal exam: Present: other (Exam chaperoned by Mariam DOWNING. Bright red blood per rectum.) Neurological exam: Present: alert, oriented X3 Skin exam: Present: warm, dry Course Vital Signs 09/22/23 09/22/23 09/22/23 19:53 22:47 23:37 Temperature 98.4 F Pulse Rate 81 84 77 Respiratory 20 16 16 Rate Blood Pressure 188/77 163/77 133/84 O2 Sat by Pulse 98 98 98 Oximetry Medical Decision Making - Medical Decision Making Was pt. sent in by a medical professional or institution (, EVELIN, CERTIFIED MEDICAL DOSIMETRIST, urgent care, hospital, or [facility]cf...) When possible be specific @ -No Did you speak to anyone other than the patient for history (EMS, parent, family, police, friend...)? What history was obtained from this source @ -No Did you review nursing and triage notes (agree or disagree)? Why? @ -I reviewed and agree with nursing and triage notes Were old charts reviewed (outside hosp., previous admission, EMS record, old EKG, old radiological studies, urgent care reports/EKG's, [facility] records)? Report findings @ -No old charts were reviewed Differential Diagnosis (chest pain, altered mental status, abdominal pain women, abdominal pain men, vaginal bleeding, weakness, fever, dyspnea, syncope, headache, dizziness, GI bleed, back pain, seizure, CVA, palpatations, mental health, musculoskeletal)? @ -Differential GI Bleed: Esophageal varices, aortoenteric fistula, Carmina-Andre, gastritis, peptic ulcer disease, diverticulosis, inflammatory bowel disease, hemorrhoids, fissure, colitis, malignancy, Meckels diverticulum, this is not meant to be an all- inclusive list. EKG interpreted by me (3pts min.). @ -None X-rays interpreted by me (1pt min.). @ -None done CT interpreted by me (1pt min.). @ -CT abdomen pelvis interpreted me showing evidence of GI bleed. U/S interpreted by me (1pt. min.). @ -None done What testing was considered but not performed or refused? (CT, X-rays, U/S, labs)? Why? @ -None What meds were considered but not given or refused? Why? @ -None Did you discuss the management of the patient with other professionals (professionals i.e. EVELIN Mullins, CERTIFIED MEDICAL DOSIMETRIST, lab, RT, psych nurse, high school social science teacher, validation consultant, teacher, immigration services officer, residential case manager)? Give summary @ -Case discussed with Dr. Tumma. Patient will be admitted secondary to GI bleed. Was smoking cessation discussed for >3mins.? @ -No Was critical care preformed (if so, how long)? @ -No Were there social determinants of health that impacted care today? How? (Homelessness, low income, unemployed, alcoholism, drug addiction, transportation, low edu. Level, literacy, decrease access to med. care, penitentiary, rehab)? @ -No Was there de-escalation of care discussed even if they declined (Discuss DNR or withdrawal of care, Hospice)? DNR status @ -No What co-morbidities impacted this encounter? (DM, HTN, Smoking, COPD, CAD, Cancer, CVA, ARF, Chemo, Hep., AIDS, mental health diagnosis, sleep apnea, morbid obesity)? @ -None Was patient admitted / discharged? Hospital course, mention meds given and route, prescriptions, significant lab abnormalities, going to OR and other pertinent info. @ -Admission 68-year-old female presenting to the ED with episode of GI bleeding today. Patient notes approximately a week ago had a colonoscopy and polyp removal per formed by Dr. Rao. States today while at the restaurant had the urge to go the bathroom when she when she noticed large clots coming out of her rectum prompting presentation to the ED for further evaluation. Laboratory studies reviewed. CBC shows a stable globin at 13.8. Chemistry panel does show elevation glucose at 307. Lactic acid elevated at 3.3. Otherwise chemistry panel unremarkable. Occult blood is positive. CT abdomen pelvis does show evidence of GI bleed with contrast blush in the rectum. Undiagnosed new problem with uncertain prognosis? @ -No Drug Therapy requiring intensive monitoring for toxicity (Heparin, Nitro, Insulin, Cardizem)? @ -No Were any procedures done? @ -No Diagnosis/symptom? @ -GI bleed, status post colonoscopy and polypectomy Acute, or Chronic, or Acute on Chronic? @ -Acute Uncomplicated (without systemic symptoms) or Complicated (systemic symptoms)? @ -Complicated Side effects of treatment? @ -No Exacerbation, Progression, or Severe Exacerbation? @ -No Poses a threat to life or bodily function? How? (Chest pain, USA, VT, pneumonia, PE, COPD, DKA, ARF, appy, cholecystitis, CVA, Diverticulitis, Homicidal, Suicidal, threat to staff... and all critical care pts) @ -Possibly - Lab Data Result diagrams: 09/22/23 21:50 09/22/23 21:50 Lab Results 09/22/23 09/22/23 09/22/23 Range/Units 21:50 21:50 21:50 WBC 8.2 (3.8-10.6) k/uL RBC 4.71 (3.80-5.40) m/uL Hgb 13.8 (11.4-16.0) gm/dL Hct 41.9 (34.0-46.0) % MCV 89.0 (80.0-100.0) fL MCH 29.3 (25.0-35.0) pg MCHC 32.9 (31.0-37.0) g/dL RDW 13.5 (11.5-15.5) % Plt Count 256 (150-450) k/uL MPV 9.0 Neutrophils % 63 % Lymphocytes % 27 % Monocytes % 5 % Eosinophils % 2 % Basophils % 1 % Neutrophils # 5.2 (1.3-7.7) k/uL Lymphocytes # 2.2 (1.0-4.8) k/uL Monocytes # 0.4 (0-1.0) k/uL Eosinophils # 0.2 (0-0.7) k/uL Basophils # 0.1 (0-0.2) k/uL PT 10.8 (10.0-12.5) sec INR 1.0 (<1.2) APTT 23.8 (22.0-30.0) sec Sodium 140 (137-145) mmol/L Potassium 3.6 (3.5-5.1) mmol/L Chloride 112 H (98-107) mmol/L Carbon Dioxide 16 L (22-30) mmol/L Anion Gap 12 mmol/L BUN 17 (7-17) mg/dL Creatinine 0.66 (0.52-1.04) mg/dL Est GFR (CKD-EPI)AfAm >90 (>60 ml/min/1.73 sqM) Est GFR (CKD-EPI)NonAf >90 (>60 ml/min/1.73 sqM) Glucose 367 H (74-99) mg/dL Lactic Ac Sepsis Rflx Plasma Lactic Acid Freedom (0.7-2.0) mmol/L Calcium 9.3 (8.4-10.2) mg/dL Total Bilirubin 0.7 (0.2-1.3) mg/dL AST 21 (14-36) U/L ALT 21 (4-34) U/L Alkaline Phosphatase 108 (38-126) U/L Troponin I (0.000-0.034) ng/mL Total Protein 6.8 (6.3-8.2) g/dL Albumin 4.1 (3.5-5.0) g/dL Stool Occult Blood (Negative) 09/22/23 09/22/23 09/22/23 Range/Units 21:50 21:50 21:56 WBC (3.8-10.6) k/uL RBC (3.80-5.40) m/uL Hgb (11.4-16.0) gm/dL Hct (34.0-46.0) % MCV (80.0-100.0) fL MCH (25.0-35.0) pg MCHC (31.0-37.0) g/dL RDW (11.5-15.5) % Plt Count (150-450) k/uL MPV Neutrophils % % Lymphocytes % % Monocytes % % Eosinophils % % Basophils % % Neutrophils # (1.3-7.7) k/uL Lymphocytes # (1.0-4.8) k/uL Monocytes # (0-1.0) k/uL Eosinophils # (0-0.7) k/uL Basophils # (0-0.2) k/uL PT (10.0-12.5) sec INR (<1.2) APTT (22.0-30.0) sec Sodium (137-145) mmol/L Potassium (3.5-5.1) mmol/L Chloride (98-107) mmol/L Carbon Dioxide (22-30) mmol/L Anion Gap mmol/L BUN (7-17) mg/dL Creatinine (0.52-1.04) mg/dL Est GFR (CKD-EPI)AfAm (>60 ml/min/1.73 sqM) Est GFR (CKD-EPI)NonAf (>60 ml/min/1.73 sqM) Glucose (74-99) mg/dL Lactic Ac Sepsis Rflx Plasma Lactic Acid Freedom 3.3 H* (0.7-2.0) mmol/L Calcium (8.4-10.2) mg/dL Total Bilirubin (0.2-1.3) mg/dL AST (14-36) U/L ALT (4-34) U/L Alkaline Phosphatase (38-126) U/L Troponin I <0.012 (0.000-0.034) ng/mL Total Protein (6.3-8.2) g/dL Albumin (3.5-5.0) g/dL Stool Occult Blood Positive H (Negative) 09/22/23 Range/Units 22:32 WBC (3.8-10.6) k/uL RBC (3.80-5.40) m/uL Hgb (11.4-16.0) gm/dL Hct (34.0-46.0) % MCV (80.0-100.0) fL MCH (25.0-35.0) pg MCHC (31.0-37.0) g/dL RDW (11.5-15.5) % Plt Count (150-450) k/uL MPV Neutrophils % % Lymphocytes % % Monocytes % % Eosinophils % % Basophils % % Neutrophils # (1.3-7.7) k/uL Lymphocytes # (1.0-4.8) k/uL Monocytes # (0-1.0) k/uL Eosinophils # (0-0.7) k/uL Basophils # (0-0.2) k/uL PT (10.0-12.5) sec INR (<1.2) APTT (22.0-30.0) sec Sodium (137-145) mmol/L Potassium (3.5-5.1) mmol/L Chloride (98-107) mmol/L Carbon Dioxide (22-30) mmol/L Anion Gap mmol/L BUN (7-17) mg/dL Creatinine (0.52-1.04) mg/dL Est GFR (CKD-EPI)AfAm (>60 ml/min/1.73 sqM) Est GFR (CKD-EPI)NonAf (>60 ml/min/1.73 sqM) Glucose (74-99) mg/dL Lactic Ac Sepsis Rflx Y Plasma Lactic Acid Freedom (0.7-2.0) mmol/L Calcium (8.4-10.2) mg/dL Total Bilirubin (0.2-1.3) mg/dL AST (14-36) U/L ALT (4-34) U/L Alkaline Phosphatase (38-126) U/L Troponin I (0.000-0.034) ng/mL Total Protein (6.3-8.2) g/dL Albumin (3.5-5.0) g/dL Stool Occult Blood (Negative) Disposition Clinical Impression: GI bleed Disposition: ADMITTED IP TO THIS HOSP Referrals: Kristine Reyes MD [Primary Care Provider] - 1-2 days
[2023-09-23] MEDS ORDERED: NALOXONE 0.4 MG/ML 1 ML VIAL IV PRN (01:28)
[2023-09-23] MEDS ORDERED: HYDROmorphone 1 MG/ML 1 ML SYRINGE IVP PRN (01:28)
[2023-09-23] MEDS ORDERED: ONDANSETRON 4 MG/2 ML VIAL IVP PRN (01:28)
[2023-09-23] MEDS ORDERED: HYDROmorphone 0.5 MG/0.5 ML SYRINGE IVP PRN (01:28)
[2023-09-23] MEDS: LOSARTAN 50 MG TAB PO SCH ×3 (02:02→21:30)
[2023-09-23] MEDS: METOPROLOL TARTRATE 25 MG TAB PO SCH ×3 (02:03→21:30)
[2023-09-23] MEDS: ATORVASTATIN 20 MG TAB PO SCH ×2 (02:03→21:30)
[2023-09-23] MEDS: SODIUM CHLORIDE 0.9% 1,000 ML IV SCH ×3 (02:04→22:50)
[2023-09-23 08:28] LABS: HCT 38.9 % (34.0-46.0); HGB 12.7 gm/dL (11.4-16.0); MCH 29.1 pg (25.0-35.0); MCHC 32.6 g/dL (31.0-37.0); MCV 89.3 fL (80.0-100.0); Mean Platelet Volume 9.6; Platelet Count 266 k/uL (150-450); RBC 4.36 m/uL (3.80-5.40); RDW 13.9 % (11.5-15.5); WBC 9.6 k/uL (3.8-10.6)
[2023-09-23] MEDS ORDERED: NON FORMULARY DRUG (Losartan Potassium [Losartan Potassium] 100 MG Tablet) PO SCH (09:00)
[2023-09-23] MEDS ORDERED: METOPROLOL TARTRATE 25 MG TAB PO SCH (09:00)
[2023-09-23] MEDS ORDERED: NITROGLYCERIN SL TABS 0.4 MG TAB SUBLINGUAL PRN (09:46)
[2023-09-23] MEDS ORDERED: DEXTROSE 50% SYRINGE 50 ML IVP PRN ×2 (09:48)
[2023-09-23 09:56] LABS: Glucose,Whole Blood 192 mg/dL (70-110)
[2023-09-23] MEDS: LEVOTHYROXINE 50 MCG TAB PO SCH (10:25)
[2023-09-23] MEDS: INSULIN ASPART (NovoLOG) 100 UNIT/ML VIAL SQ SCH ×4 (10:25→21:32)
[2023-09-23] MEDS: OXYBUTYNIN 15 MG TAB.ER.24 PO SCH (10:25)
--- NOTE | 2023-09-23 11:36 | P.CONS ---
History of Present Illness - Reason for Consult Consult date: 09/23/23 GI bleed status post colonoscopy Requesting physician: Diego Sweeney - Chief Complaint Rectal bleeding - History of Present Illness This is a pleasant 68-year-old white female who had seen Dr. Osorio and 09/11/2023 for colonoscopy done at [facility]. She had 3 to 4 cm rectal polyp status post polypectomy with 3 clips placed, 1 cm rectal polyp and a 1 cm colon polyp. Patient takes Xarelto for history of DVT and pulmonary embolism, she has coronary artery disease, diabetes mellitus, hyperlipidemia, and hypertension. She states following the procedure she was told she may have a little bit of rectal bleeding due to the polypectomy however she did not have any bleeding at that time. Yesterday while she was out to dinner around 01/28/1930 she felt the urge to have a bowel movement she went to the bathroom and passed bright red blood and clots. She continued to have another episode and came into the emergency department for evaluation. She has had 4-5 episodes of bright red blood per rectum and clots since her first episode. She denies any dizziness, no abdominal cramping or pain, no nausea or vomiting. Initial hemoglobin on admission was 13.8 with a repeat hemoglobin today of 12.7. Last dose of Xarelto was yesterday morning and it is currently on hold. Patient is being admitted for rectal bleeding. She had a CT angiogram of the abdomen and pelvis reporting surgical clips present in the rectum. There is also contrast blush in the rectum concern for source of gastrointestinal bleed. Gastroenterology follow-up recommended. Review of Systems REVIEW OF SYSTEMS: CARDIOPULMONARY: No chest pain or shortness of breath. Gastrointestinal: No abdominal pain or cramping.. No nausea or vomiting. No hematemesis, coffee-ground emesis. Bright red rectal bleeding with clots. GENITOURINARY: No dysuria or hematuria. MUSCULOSKELETAL: Reports normal range of motion. SKIN: No rashes. No jaundice. ENDOCRINE: No chills, fevers. No excessive weight gain or loss. No polydipsia or polyuria. PSYCHIATRIC: Unremarkable. NEUROLOGY: No change in mental status. Denies dizziness, headache. ENT: Vision unremarkable. CONSTITUTIONAL: No recent weight loss. No fever, chills, night sweats. Past Medical History Past Medical History: Coronary Artery Disease (CAD), Chest Pain / Angina, Diabetes Mellitus, Deep Vein Thrombosis (DVT), Hyperlipidemia, Hypertension, Musculoskeletal Disorder, Osteoarthritis (OA), Pulmonary Embolus (PE), Thyroid Disorder Additional Past Medical History / Comment(s): Palpitations, urinary frequency, low back pain, DVT with PE, History of Any Multi-Drug Resistant Organisms: MRSA Year Discovered:: 2005 MDRO Source:: [place] [employer] Past Surgical History: Bariatric Surgery, Cholecystectomy, Heart Catheterization With Stent, Orthopedic Surgery, Tonsillectomy Additional Past Surgical History / Comment(s): lap removal ovary cyst, LAP BAND. ARTHROSCOPY OF L KNEE. Colonoscopy. I&D of abdominal cyst. Sinus surgery, cataracts, Past Anesthesia/Blood Transfusion Reactions: No Reported Reaction Date of Last Stent Placement:: 02/2016 Past Psychological History: Anxiety Smoking Status: Never smoker Past Alcohol Use History: None Reported Past Drug Use History: None Reported - Past Family History Mother Family Medical History: Cancer Additional Family Medical History / Comment(s): Mother of OVARIAN CANCER at the age of 64yrs.. Father Family Medical History: No Reported History Additional Family Medical History / Comment(s): Father in a motorcycle accident in his 50's. Medications and Allergies Home Medications Medication Instructions Recorded Confirmed Type Aspirin [Adult Low Dose Aspirin EC] 81 mg PO HS 02/09/16 09/23/23 History Levothyroxine Sodium [Synthroid] 50 mcg PO QAM 02/09/16 09/23/23 History Metoprolol Tartrate 25 mg PO BID 02/09/16 09/23/23 History Nitroglycerin Sl Tabs [Nitrostat] 0.4 mg SUBLINGUAL Q5M PRN #25 tab 02/16/16 09/23/23 Rx metFORMIN HCL [Glucophage] 1,000 mg PO HS #0 02/16/16 09/23/23 Rx Insulin Glargine,Hum.rec.anlog 45 units SQ DAILY 02/18/19 09/23/23 History [Lantus Solostar Pen] Losartan Potassium 100 mg PO HS 02/18/19 09/23/23 History Oxybutynin ER [Ditropan XL] 15 mg PO DAILY 02/18/19 09/23/23 History Simvastatin [Zocor] 40 mg PO HS 02/18/19 09/23/23 History amLODIPine [Norvasc] 10 mg PO DAILY 02/18/19 09/23/23 History glipiZIDE XL [Glucotrol XL] 10 mg PO BID 02/18/19 09/23/23 History Berberine 1 tab PO PC-LUNCH 09/23/23 09/23/23 History Insulin Glargine,Hum.rec.anlog 35 units SQ HS 09/23/23 09/23/23 History [Lantus Solostar Pen] Rivaroxaban [Xarelto] 10 mg PO DAILY 09/23/23 09/23/23 History Semaglutide [Ozempic] 1 mg SQ MO 09/23/23 09/23/23 History Allergies Allergy/AdvReac Type Severity Reaction Status Date / Time No Known Allergies Allergy Verified 09/23/23 07:16 Physical Exam Vitals: Vital Signs Temp Pulse Resp BP Pulse Ox 09/23/23 08:04 97.8 F 75 16 135/75 98 09/23/23 04:23 92 16 132/76 98 09/23/23 02:30 73 16 153/77 97 09/22/23 23:37 77 16 133/84 98 09/22/23 22:47 84 16 163/77 98 09/22/23 19:53 98.4 F 81 20 188/77 98 Intake and Output 09/22/23 09/23/23 09/23/23 22:59 06:59 14:59 Other: Weight 117.934 kg General appearance: The patient is alert, oriented, appears in no acute distress. Obese. HET: Head is normocephalic and atraumatic. Conjunctiva pink. Sclera anicteric. Neck: Supple without lymphadenopathy. Trachea midline. Heart: Regular. Lungs: Equal expansion, normal respiratory effort. Abdomen: Soft, nontender, nondistended with bowel sounds. No guarding or rigidity. Skin: No rashes. No jaundice. Extremities: Normal skin color and turgor. No pedal edema. Neurological: No focal deficits. Alert and oriented x3. Results CBC & Chem 7: 09/23/23 07:27 09/22/23 21:50 Labs: Abnormal Lab Results - Last 24 Hours (Table) 09/22/23 09/22/23 09/22/23 Range/Units 21:50 21:50 21:56 Chloride 112 H (98-107) mmol/L Carbon Dioxide 16 L (22-30) mmol/L Glucose 367 H (74-99) mg/dL Plasma Lactic Acid Freedom 3.3 H* (0.7-2.0) mmol/L Stool Occult Blood Positive H (Negative) 09/23/23 09/23/23 Range/Units 00:39 04:00 Chloride (98-107) mmol/L Carbon Dioxide (22-30) mmol/L Glucose (74-99) mg/dL Plasma Lactic Acid Freedom 2.4 H* 2.7 H* (0.7-2.0) mmol/L Stool Occult Blood (Negative) Comments: CT angiogram of the abdomen and pelvis reporting surgical clips present in the rectum. There is also contrast blush in the rectum concern for source of gastrointestinal bleed. Gastroenterology follow-up recommended. Assessment and Plan (1) GI bleed Narrative/Plan: 68-year-old female who underwent screening colonoscopy on 09/11/2023 with findings of 3 polyps including one 3 to 4 cm rectal polyp 1 cm rectal polyp and a 1 cm colon polyp status post polypectomy. 3 clips were placed on the larger polypectomy in the rectum. Patient has history of DVT and pulmonary embolism on Xarelto. Following colonoscopy patient states that she had no problems with any rectal bleeding. However yesterday evening she felt pressure that she had to go the bathroom and she had significant amount of rectal bleeding with clots. She has had 4-5 further episodes. CTA shows [address] in the rectum with concerns of area of bleed. Hemoglobin is stable. No abdominal pain. Will continue to hold Xarelto, bleeding likely will stop however will plan tentative sigmoidoscopy tomorrow. Current Visit: Yes Status: Acute Code(s): K92.2 - GASTROINTESTINAL HEMORRHAGE, UNSPECIFIED SNOMED Code(s): 56083631 (2) History of pulmonary embolism Current Visit: Yes Status: Acute Code(s): Z86.711 - PERSONAL HISTORY OF PULMONARY EMBOLISM SNOMED Code(s): 263212964 (3) History of DVT (deep vein thrombosis) Current Visit: Yes Status: Acute Code(s): Z86.718 - PERSONAL HISTORY OF OTHER VENOUS THROMBOSIS AND EMBOLISM SNOMED Code(s): 879545342 (4) Coronary artery disease Current Visit: Yes Status: Acute Code(s): I25.10 - ATHSCL HEART DISEASE OF [place] CORONARY ARTERY W/O ANG PCTRS SNOMED Code(s): 39546638 Plan: 1. Continue symptomatic and supportive care 2. Continue to hold anticoagulati'son 3. Daily CBC, transfuse for hemoglobin less than 7 4. Patient may have clear liquid diet, n.p.o. after midnight 5. Bowel prep this evening, tentative plan for sigmoidoscopy tomorrow Thank you for this consultation, we will continue to follow. Dr. Dawn Osorio I agree with the dictator's note, documented as a scribe by Deepa Lutz.
--- NOTE | 2023-09-23 12:22 | P.HPIM ---
History of Present Illness H&P Date: 09/23/23 Chief Complaint: GI bleed * 68-year-old patient with past medical history significant for coronary artery disease, history of pulm embolism, diabetes mellitus, hypertension, hy perlipidemia, history of osteoarthritis who recently had a colonoscopy done outpatient presents to the emergency department with complaints of bright red blood per rectum. Patient states she was at a restaurant when she had an urge to go to the restroom and saw blood clots come out of the rectum. * Workup initiated in ER included CT angio abdomen which showed surgical clips in the rectum, contrast blush in rectum was noted considered to be source of gastrointestinal bleeding * While in the ER patient had workup initiated which included CBC showed WBC count of 6.7, hemoglobin of 12.7 hematocrit 38.9 platelet count of 266 * Initial lactate was obtained which was 2.4, patient was given fluid bolus after which follow-up lactate was improved to 1.9 * Patient states she had colonoscopy done 11 days ago, and started on Xarelto from the next day. She was taking Xarelto for remote history of pulm e mbolism, she had 1 episode of PE and DVT. Has followed up with hematology outpatient for anticoagulation * Was made n.p.o. with consultation from gastroenterology for evaluation REVIEW OF SYSTEMS: Bright red blood per rectum CONSTITUTIONAL: No fever, no malaise, no fatigue. HEENT: No recent visual problems or hearing problems. Denied any sore throat. CARDIOVASCULAR: No chest pain, orthopnea, PND, no palpitations, no syncope. PULMONARY: No shortness of breath, no cough, no hemoptysis. GASTROINTESTINAL: No diarrhea, no nausea, no vomiting, no abdominal pain. NEUROLOGICAL: No headaches, no weakness, no numbness. HEMATOLOGICAL: Denies any bleeding or petechiae. GENITOURINARY: Denies any burning micturition, frequency, or urgency. MUSCULOSKELETAL/RHEUMATOLOGICAL: Denies any joint pain, swelling, or any muscle pain. ENDOCRINE: Denies any polyuria or polydipsia. PHYSICAL EXAMINATION: GENERAL: The patient is alert and oriented x3, not in any acute distress. Well developed, well nourished. HEENT: Pupils are round and equally reacting to light. EOMI. No scleral icterus. No conjunctival pallor. Normocephalic, atraumatic. No pharyngeal erythema. No thyromegaly. CARDIOVASCULAR: S1 and S2 present. No murmurs, rubs, or gallops. PULMONARY: Chest is clear to auscultation, no wheezing or crackles. ABDOMEN: Soft, nontender, nondistended, normoactive bowel sounds. No palpable organomegaly. MUSCULOSKELETAL: No joint swelling or deformity. EXTREMITIES: No cyanosis, clubbing, or pedal edema. NEUROLOGICAL: Gross neurological examination did not reveal any focal deficits. Past Medical History Past Medical History: Coronary Artery Disease (CAD), Chest Pain / Angina, Diabetes Mellitus, Deep Vein Thrombosis (DVT), Hyperlipidemia, Hypertension, Musculoskeletal Disorder, Osteoarthritis (OA), Pulmonary Embolus (PE), Thyroid Disorder Additional Past Medical History / Comment(s): Palpitations, urinary frequency, low back pain, DVT with PE, History of Any Multi-Drug Resistant Organisms: MRSA Date of last positivie culture/infection: 2005 MDRO Source:: [employer] Past Surgical History: Bariatric Surgery, Cholecystectomy, Heart Catheterization With Stent, Orthopedic Surgery, Tonsillectomy Additional Past Surgical History / Comment(s): lap removal ovary cyst, LAP BAND. ARTHROSCOPY OF L KNEE. Colonoscopy. I&D of abdominal cyst. Sinus surgery, cataracts, Past Anesthesia/Blood Transfusion Reactions: No Reported Reaction Date of Last Stent Placement:: 02/2016 Past Psychological History: Anxiety Smoking Status: Never smoker Past Alcohol Use History: None Reported Past Drug Use History: None Reported - Past Family History Mother Family Medical History: Cancer Additional Family Medical History / Comment(s): Mother of OVARIAN CANCER at the age of 64yrs.. Father Family Medical History: No Reported History Additional Family Medical History / Comment(s): Father in a motorcycle accident in his 50's. Medications and Allergies Home Medications Medication Instructions Recorded Confirmed Type Aspirin [Adult Low Dose Aspirin EC] 81 mg PO HS 02/09/16 09/23/23 History Levothyroxine Sodium [Synthroid] 50 mcg PO QAM 02/09/16 09/23/23 History Metoprolol Tartrate 25 mg PO BID 02/09/16 09/23/23 History Nitroglycerin Sl Tabs [Nitrostat] 0.4 mg SUBLINGUAL Q5M PRN #25 tab 02/16/16 09/23/23 Rx metFORMIN HCL [Glucophage] 1,000 mg PO HS #0 02/16/16 09/23/23 Rx Insulin Glargine,Hum.rec.anlog 45 units SQ DAILY 02/18/19 09/23/23 History [Lantus Solostar Pen] Losartan Potassium 100 mg PO HS 02/18/19 09/23/23 History Oxybutynin ER [Ditropan XL] 15 mg PO DAILY 02/18/19 09/23/23 History Simvastatin [Zocor] 40 mg PO HS 02/18/19 09/23/23 History amLODIPine [Norvasc] 10 mg PO DAILY 02/18/19 09/23/23 History glipiZIDE XL [Glucotrol XL] 10 mg PO BID 02/18/19 09/23/23 History Berberine 1 tab PO PC-LUNCH 09/23/23 09/23/23 History Insulin Glargine,Hum.rec.anlog 35 units SQ HS 09/23/23 09/23/23 History [Lantus Solostar Pen] Rivaroxaban [Xarelto] 10 mg PO DAILY 09/23/23 09/23/23 History Semaglutide [Ozempic] 1 mg SQ MO 09/23/23 09/23/23 History Allergies Allergy/AdvReac Type Severity Reaction Status Date / Time No Known Allergies Allergy Verified 09/23/23 07:16 Physical Exam Vitals: Vital Signs Temp Pulse Resp BP Pulse Ox 09/23/23 08:04 97.8 F 75 16 135/75 98 09/23/23 04:23 92 16 132/76 98 09/23/23 02:30 73 16 153/77 97 09/22/23 23:37 77 16 133/84 98 09/22/23 22:47 84 16 163/77 98 09/22/23 19:53 98.4 F 81 20 188/77 98 Intake and Output 09/22/23 09/23/23 09/23/23 22:59 06:59 14:59 Other: Weight 117.934 kg Results CBC & Chem 7: 09/23/23 07:27 09/22/23 21:50 Labs: Abnormal Lab Results - Last 24 Hours (Table) 09/22/23 09/22/23 09/22/23 Range/Units 21:50 21:50 21:56 Chloride 112 H (98-107) mmol/L Carbon Dioxide 16 L (22-30) mmol/L Glucose 367 H (74-99) mg/dL Plasma Lactic Acid Freedom 3.3 H* (0.7-2.0) mmol/L Stool Occult Blood Positive H (Negative) 09/23/23 09/23/23 Range/Units 00:39 04:00 Chloride (98-107) mmol/L Carbon Dioxide (22-30) mmol/L Glucose (74-99) mg/dL Plasma Lactic Acid Freedom 2.4 H* 2.7 H* (0.7-2.0) mmol/L Stool Occult Blood (Negative) Thrombosis Risk Factor Assmnt - DVT/VTE Prophylaxis DVT/VTE Prophylaxis: Mechanical Prophylaxis ordered Assessment and Plan Assessment: Assessment and plan * Acute lower gastrointestinal bleed, s/p colonoscopy * History of pulm embolism on anticoagulation * Hypertension * Hypothyroid * Diabetes mellitus type 2 * In regards to her gastrointestinal bleed H&H ordered, patient made n.p.o. follow-up on hemoglobin levels * In regards to history of pulm embolism Xarelto on hold till hemoglobin stabilizes, bleeding resolves, SCDs for DVT prophylaxis * In regards to history of hypertension continue amlodipine, losartan, metoprolol * In regards to history of diabetes Accu-Cheks ACHS, while n.p.o. do every 4 hours glucose checks correctional insulin ordered, nocturnal Lantus ordered monitor for hypoglycemia * Regards to history of for thyroid continue Synthyroid * Status is full code Time with Patient: Greater than 30
[2023-09-23 14:40] LABS: Glucose,Whole Blood 151 mg/dL (70-110)
[2023-09-23 16:14] LABS: HGB 12.1 gm/dL (11.4-16.0); MCH 29.9 pg (25.0-35.0); MCHC 33.7 g/dL (31.0-37.0); MCV 88.9 fL (80.0-100.0); Mean Platelet Volume 9.4; Platelet Count 233 k/uL (150-450); RBC 4.05 m/uL (3.80-5.40); RDW 13.9 % (11.5-15.5); WBC 7.7 k/uL (3.8-10.6)
[2023-09-23 17:24] LABS: Glucose,Whole Blood 129 mg/dL (70-110)
[2023-09-23] MEDS ORDERED: NON FORMULARY DRUG (Simvastatin 40 MG Tab) PO SCH (21:00)
[2023-09-23 21:30] LABS: Glucose,Whole Blood 118 mg/dL (70-110)
[2023-09-23] MEDS: INSULIN DETEMIR (LEVEMIR) 100 UNIT/ML SYR SQ SCH ×2 (21:31→21:32)
[2023-09-24 02:21] LABS: Glucose,Whole Blood 76 mg/dL (70-110)
[2023-09-24] MEDS: INSULIN ASPART (NovoLOG) 100 UNIT/ML VIAL SQ SCH ×6 (02:40→20:48)
[2023-09-24 05:58] LABS: Glucose,Whole Blood 101 mg/dL (70-110)
[2023-09-24] MEDS: LEVOTHYROXINE 50 MCG TAB PO SCH (06:00)
[2023-09-24] MEDS: INSULIN DETEMIR (LEVEMIR) 100 UNIT/ML SYR SQ SCH ×2 (06:00→20:47)
[2023-09-24] MEDS: amLODIPine 10 MG TAB PO SCH (08:15)
[2023-09-24] MEDS: OXYBUTYNIN 15 MG TAB.ER.24 PO SCH (08:15)
[2023-09-24] MEDS: METOPROLOL TARTRATE 25 MG TAB PO SCH ×2 (08:16→20:47)
[2023-09-24 09:22] LABS: HCT 38.3 % (34.0-46.0); HGB 12.1 gm/dL (11.4-16.0); Hypochromasia Marked; MCH 29.5 pg (25.0-35.0); MCHC 31.5 g/dL (31.0-37.0); MCV 93.7 fL (80.0-100.0); Mean Platelet Volume 10.2; Platelet Count 212 k/uL (150-450); RBC 4.08 m/uL (3.80-5.40); RDW 13.9 % (11.5-15.5); WBC 6.5 k/uL (3.8-10.6)
[2023-09-24 10:07] LABS: Glucose,Whole Blood 128 mg/dL (70-110)
[2023-09-24 10:34] LABS: Lymphocytes # (M) 2.28 k/uL (1.0-4.8); Monocytes # (M) 0.33 k/uL (0-1.0); Neutrophils # (M) 3.71 k/uL (1.3-7.7); Neutrophils % (M) 57 %; Nucleated Red Blood Cells 0 /100 WBC (0-0); Total Cells Counted 100
--- NOTE | 2023-09-24 10:48 | P.PN ---
Subjective Progress Note Date: 09/24/23 Principal diagnosis: GI bleed This is a pleasant 68-year-old white female who had seen Dr. Osorio and 09/11/2023 for colonoscopy done at [facility]. She had 3 to 4 cm rectal polyp status post polypectomy with 3 clips placed, 1 cm rectal polyp and a 1 cm colon polyp. Patient takes Xarelto for history of DVT and pulmonary embolism, she has coronary artery disease, diabetes mellitus, hyperlipidemia, and hypertension. She states following the procedure she was told she may have a little bit of rectal bleeding due to the polypectomy however she did not have any bleeding at that time. Yesterday while she was out to dinner around 01/28/1930 she felt the urge to have a bowel movement she went to the bathroom and passed bright red blood and clots. She continued to have another episode and came into the emergency department for evaluation. She has had 4-5 episodes of bright red blood per rectum and clots since her first episode. She denies any dizziness, no abdominal cramping or pain, no nausea or vomiting. Initial hemoglobin on admission was 13.8 with a repeat hemoglobin today of 12.7. Last dose of Xarelto was yesterday morning and it is currently on hold. Patient is being admitted for rectal bleeding. She had a CT angiogram of the abdomen and pelvis reporting surgical clips present in the rectum. There is also contrast blush in the rectum concern for source of gastrointestinal bleed. Gastroenterology follow-up recommended. 09/24/2023 Patient seen and examined today as a follow-up. She has had no further rectal bleeding since yesterday morning. Hemoglobin is stable at 12.1 which is the same as yesterday afternoon. She denies any abdominal pain, nausea or vomiting. She had tolerated her clear liquid diet. Xarelto remains on hold. Objective - Vital Signs Vital signs: Vital Signs Temp 97.6 F 09/24/23 07:39 Pulse 64 09/24/23 08:10 Resp 16 09/24/23 08:10 BP 145/80 09/24/23 07:39 Pulse Ox 98 09/24/23 07:39 FiO2 Intake & Output 09/23/23 09/24/23 09/24/23 18:59 06:59 18:59 Weight 117.934 kg Other: Voiding Method Toilet Toilet Toilet # Voids 1 # Bowel Movements 1 - Exam General appearance: The patient is alert, oriented, appears in no acute distress. HET: Head is normocephalic and atraumatic. Conjunctiva pink. Sclera anicteric. Neck: Supple without lymphadenopathy. Abdomen: Soft, nontender, nondistended with bowel sounds. No guarding or rigidity. Extremities: Normal skin color and turgor. No pedal edema Skin: No rashes, no jaundice Neurological: No focal deficits. Alert and oriented. - Labs CBC & Chem 7: 09/24/23 07:40 09/22/23 21:50 Labs: Abnormal Lab Results - Last 24 Hours (Table) 09/23/23 09/23/23 09/23/23 Range/Units 09:55 14:38 15:40 POC Glucose (mg/dL) 192 H 151 H (70-110) mg/dL Hemoglobin A1c 8.6 H (<=6.0) % 09/23/23 09/23/23 Range/Units 17:13 21:29 POC Glucose (mg/dL) 129 H 118 H (70-110) mg/dL Hemoglobin A1c (<=6.0) % Assessment and Plan (1) GI bleed Narrative/Plan: 68-year-old female who underwent screening colonoscopy on 09/11/2023 with findings of 3 polyps including one 3 to 4 cm rectal polyp 1 cm rectal polyp and a 1 cm colon polyp status post polypectomy. 3 clips were placed on the larger polypectomy in the rectum. Patient has history of DVT and pulmonary embolism on Xarelto. Following colonoscopy patient states that she had no problems with any rectal bleeding. However yesterday evening she felt pressure that she had to go the bathroom and she had significant amount of rectal bleeding with clots. She has had 4-5 further episodes. CTA shows [address] in the rectum with concerns of area of bleed. Hemoglobin is stable. No abdominal pain. Will continue to hold Xarelto, bleeding likely will stop however will plan tentative sigmoidoscopy tomorrow. Patient without any further GI bleed. No rectal bleeding since yesterday morning. No abdominal pain, nausea or vomiting. Xarelto remains on hold and we will continue to hold it for 2 more days. Patient may resume on Friday09-26-23. No plans on sigmoidoscopy will advance diet and patient may be discharged home. Current Visit: Yes Status: Acute Code(s): K92.2 - GASTROINTESTINAL HEMORR DANIKA, UNSPECIFIED SNOMED Code(s): 05299470 (2) History of pulmonary embolism Current Visit: Yes Status: Acute Code(s): Z86.711 - PERSONAL HISTORY OF PULMONARY EMBOLISM SNOMED Code(s): 645086556 (3) History of DVT (deep vein thrombosis) Current Visit: Yes Status: Acute Code(s): Z86.718 - PERSONAL HISTORY OF OTHER VENOUS THROMBOSIS AND EMBOLISM SNOMED Code(s): 860640709 (4) Coronary artery disease Current Visit: Yes Status: Acute Code(s): I25.10 - ATHSCL HEART DISEASE OF [place] CORONARY ARTERY W/O ANG PCTRS SNOMED Code(s): 08527963 Plan: 1. Continue symptomatic and supportive care 2. Continue to hold Xarelto for 2 more days. Patient may resume on 09/26/2023. This was discussed with patient. 3. Advance to regular diet 4. Hemoglobin stable no further bleeding no plans on colonoscopy/sigmoidoscopy. Thank you for this consultation, patient is cleared by gastroenterology for discharge. Dr. Dawn Osorio I agree with the dictator's note, documented as a scribe by Deepa Lutz.
[2023-09-24 11:59] LABS: Glucose,Whole Blood 125 mg/dL (70-110)
--- NOTE | 2023-09-24 12:07 | P.PN ---
Subjective Progress Note Date: 09/24/23 * 68-year-old patient with past medical history significant for coronary artery disease, history of pulm embolism, diabetes mellitus, hypertension, hyperlipidemia, history of osteoarthritis who recently had a colonoscopy done outpatient presents to the emergency department with complaints of bright red blood per rectum. Patient states she was at a restaurant when she had an urge to go to the restroom and saw blood clots come out of the rectum. * Workup initiated in ER included CT angio abdomen which showed surgical clips in the rectum, contrast blush in rectum was noted considered to be source of gastrointestinal bleeding * While in the ER patient had workup initiated which included CBC showed WBC c ount of 6.7, hemoglobin of 12.7 hematocrit 38.9 platelet count of 266 * Initial lactate was obtained which was 2.4, patient was given fluid bolus after which follow-up lactate was improved to 1.9 * Patient states she had colonoscopy done 11 days ago, and started on Xarelto from the next day. She was taking Xarelto for remote history of pulm embolism, she had 1 episode of PE and DVT. Has followed up with hematology outpatient for anticoagulation * 09/24/2023: Patient seen and evaluated bedside. On evaluation patient is alert and oriented x 4, no more episode of blood in stool noted. Hemoglobin remained stable. Initially gastroenterology was planning sigmoidoscopy however considering no more episode will monitor and potential discharge in the next 24 hours diet advance as tolerated. Continue to hold Xarelto upon discharge till follow-up with PCP at least for 72 more hours REVIEW OF SYSTEMS: Bright red blood per rectum resolved CONSTITUTIONAL: No fever, no malaise, no fatigue. HEENT: No recent visual problems or hearing problems. Denied any sore throat. CARDIOVASCULAR: No chest pain, orthopnea, PND, no palpitations, no syncope. PULMONARY: No shortness of breath, no cough, no hemoptysis. GASTROINTESTINAL: No diarrhea, no nausea, no vomiting, no abdominal pain. NEUROLOGICAL: No headaches, no weakness, no numbness. HEMATOLOGICAL: Denies any bleeding or petechiae. GENITOURINARY: Denies any burning micturition, frequency, or urgency. MUSCULOSKELETAL/RHEUMATOLOGICAL: Denies any joint pain, swelling, or any muscle pain. ENDOCRINE: Denies any polyuria or polydipsia. PHYSICAL EXAMINATION: GENERAL: The patient is alert and oriented x3, not in any acute distress. Well developed, well nourished. HEENT: Pupils are round and equally reacting to light. EOMI. No scleral icterus. No conjunctival pallor. Normocephalic, atraumatic. No pharyngeal erythema. No thyromegaly. CARDIOVASCULAR: S1 and S2 present. No murmurs, rubs, or gallops. PULMONARY: Chest is clear to auscultation, no wheezing or crackles. ABDOMEN: Soft, nontender, nondistended, normoactive bowel sounds. No palpable organomegaly. MUSCULOSKELETAL: No joint swelling or deformity. EXTREMITIES: No cyanosis, clubbing, or pedal edema. NEUROLOGICAL: Gross neurological examination did not reveal any focal deficits. Objective - Vital Signs Vital signs: Vital Signs Temp 97.9 F 09/24/23 11:18 Pulse 60 09/24/23 11:18 Resp 16 09/24/23 11:18 BP 119/71 09/24/23 11:18 Pulse Ox 100 09/24/23 11:18 FiO2 Intake & Output 09/23/23 09/24/23 09/24/23 18:59 06:59 18:59 Weight 117.934 kg Other: Voiding Method Toilet Toilet Toilet # Voids 1 # Bowel Movements 1 - Labs CBC & Chem 7: 09/24/23 07:40 09/22/23 21:50 Labs: Abnormal Lab Results - Last 24 Hours (Table) 09/23/23 09/23/23 09/23/23 Range/Units 14:38 15:40 17:13 POC Glucose (mg/dL) 151 H 129 H (70-110) mg/dL Hemoglobin A1c 8.6 H (<=6.0) % 09/23/23 09/24/23 09/24/23 Range/Units 21:29 10:06 11:56 POC Glucose (mg/dL) 118 H 128 H 125 H (70-110) mg/dL Hemoglobin A1c (<=6.0) % Assessment and Plan Assessment: Assessment and plan * Acute lower gastrointestinal bleed, s/p colonoscopy * History of pulm embolism on anticoagulation * Hypertension * Hypothyroid * Diabetes mellitus type 2 * In regards to her gastrointestinal bleed H&H remained stable, no plan for any intervention per gastroenterology. Continue to hold Xarelto * In regards to history of pulm embolism Xarelto on hold till hemoglobin stabilizes, bleeding resolves, SCDs for DVT prophylaxis * In regards to history of hypertension continue amlodipine, losartan, metoprolol * In regards to history of diabetes Accu-Cheks ACHS, continue correctional insu ced, metformin on hold * Regards to history of for thyroid continue Synthyroid * Status is full code Time with Patient: Greater than 30
[2023-09-24 12:27] LABS: African American GFR (CKD) >90 (>60 ml/min/1.73 sqM); Anion Gap 6 mmol/L; Blood Urea Nitrogen 9 mg/dL (7-17); C Reactive Protein <0.5 mg/dL (<1.0); Calcium 8.7 mg/dL (8.4-10.2); Carbon Dioxide 21 mmol/L (22-30); Chloride 115 mmol/L (98-107); Glucose 103 mg/dL (74-99); Non-African American GFR(CKD) >90 (>60 ml/min/1.73 sqM); Sodium 142 mmol/L (137-145)
[2023-09-24 12:36] LABS: Potassium 3.8 mmol/L (3.5-5.1)
[2023-09-24] MEDS: SODIUM CHLORIDE 0.9% 1,000 ML IV SCH (15:47)
[2023-09-24 16:20] LABS: Glucose,Whole Blood 224 mg/dL (70-110)
[2023-09-24 20:19] LABS: Glucose,Whole Blood 353 mg/dL (70-110)
[2023-09-24] MEDS: LOSARTAN 50 MG TAB PO SCH (20:47)
[2023-09-24] MEDS: ATORVASTATIN 20 MG TAB PO SCH (20:47)
[2023-09-25 00:32] VITALS: RESP 16
[2023-09-25 01:47] LABS: Glucose,Whole Blood 209 mg/dL (70-110)
[2023-09-25] MEDS: SODIUM CHLORIDE 0.9% 1,000 ML IV SCH ×2 (03:41→11:50)
[2023-09-25 06:03] LABS: Glucose,Whole Blood 175 mg/dL (70-110)
[2023-09-25] MEDS: LEVOTHYROXINE 50 MCG TAB PO SCH (06:19)
[2023-09-25] MEDS: INSULIN ASPART (NovoLOG) 100 UNIT/ML VIAL SQ SCH ×2 (06:19→11:56)
[2023-09-25] MEDS: INSULIN DETEMIR (LEVEMIR) 100 UNIT/ML SYR SQ SCH (06:20)
--- NOTE | 2023-09-25 09:39 | P.PN ---
Subjective Progress Note Date: 09/25/23 Principal diagnosis: GI bleed This is a pleasant 68-year-old white female who had seen Dr. Osorio and 09/11/2023 for colonoscopy done at [facility]. She had 3 to 4 cm rectal polyp status post polypectomy with 3 clips placed, 1 cm rectal polyp and a 1 cm colon polyp. Patient takes Xarelto for history of DVT and pulmonary embolism, she has coronary artery disease, diabetes mellitus, hyperlipidemia, and hypertension. She states following the procedure she was told she may have a little bit of rectal bleeding due to the polypectomy however she did not have any bleeding at that time. Yesterday while she was out to dinner around 01/28/1930 she felt the urge to have a bowel movement she went to the bathroom and passed bright red blood and clots. She continued to have another episode and came into the emergency department for evaluation. She has had 4-5 episodes of bright red blood per rectum and clots since her first episode. She denies any dizziness, no abdominal cramping or pain, no nausea or vomiting. Initial hemoglobin on admission was 13.8 with a repeat hemoglobin today of 12.7. Last dose of Xarelto was yesterday morning and it is currently on hold. Patient is being admitted for rectal bleeding. She had a CT angiogram of the abdomen and pelvis reporting surgical clips present in the rectum. There is also contrast blush in the rectum concern for source of gastrointestinal bleed. Gastroenterology follow-up recommended. 09/24/2023 Patient seen and examined today as a follow-up. She has had no further rectal bleeding since yesterday morning. Hemoglobin is stable at 12.1 which is the same as yesterday afternoon. She denies any abdominal pain, nausea or vomiting. She had tolerated her clear liquid diet. Xarelto remains on hold. 09/25/2023 Patient seen and examined as a follow-up. She is without any complaints. She had a regular bowel movement yesterday formed without any blood in it. Denies any bowel movements today and no rectal bleeding. Objective - Vital Signs Vital signs: Vital Signs Temp 98.0 F 09/25/23 07:38 Pulse 63 09/25/23 09:21 Resp 16 09/25/23 09:21 BP 142/68 09/25/23 07:38 Pulse Ox 98 09/25/23 07:38 FiO2 Intake & Output 09/24/23 09/25/23 09/25/23 18:59 06:59 18:59 Intake Total 350 480 240 Balance 350 480 240 Intake: Oral 350 480 240 Other: Voiding Method Toilet Toilet Toilet # Voids 2 3 # Bowel Movements 2 - Exam General appearance: The patient is alert, oriented, appears in no acute distress. HET: Head is normocephalic and atraumatic. Conjunctiva pink. Sclera anicteric. Neck: Supple without lymphadenopathy. Abdomen: Soft, nontender, nondistended with bowel sounds. No guarding or rigidity. Extremities: Normal skin color and turgor. No pedal edema Skin: No rashes, no jaundice Neurological: No focal deficits. Alert and oriented. - Labs CBC & Chem 7: 09/24/23 07:40 09/24/23 07:40 Labs: Abnormal Lab Results - Last 24 Hours (Table) 09/24/23 09/24/23 09/24/23 Range/Units 07:40 10:06 11:56 Chloride 115 H (98-107) mmol/L Carbon Dioxide 21 L (22-30) mmol/L Creatinine 0.49 L (0.52-1.04) mg/dL Glucose 103 H (74-99) mg/dL POC Glucose (mg/dL) 128 H 125 H (70-110) mg/dL 09/24/23 09/24/23 09/25/23 Range/Units 16:18 20:17 01:45 Chloride (98-107) mmol/L Carbon Dioxide (22-30) mmol/L Creatinine (0.52-1.04) mg/dL Glucose (74-99) mg/dL POC Glucose (mg/dL) 224 H 353 H 209 H (70-110) mg/dL 09/25/23 Range/Units 06:02 Chloride (98-107) mmol/L Carbon Dioxide (22-30) mmol/L Creatinine (0.52-1.04) mg/dL Glucose (74-99) mg/dL POC Glucose (mg/dL) 175 H (70-110) mg/dL Assessment and Plan (1) GI bleed Narrative/Plan: 68-year-old female who underwent screening colonoscopy on 09/11/2023 with findings of 3 polyps including one 3 to 4 cm rectal polyp 1 cm rectal polyp and a 1 cm colon polyp status post polypectomy. 3 clips were placed on the larger polypectomy in the rectum. Patient has history of DVT and pulmonary embolism on Xarelto. Following colonoscopy patient states that she had no problems with any rectal bleeding. However yesterday evening she felt pressure that she had to go the bathroom and she had significant amount of rectal bleeding with clots. She has had 4-5 further episodes. CTA shows [address] in the rectum with concerns of area of bleed. Hemoglobin is stable. No abdominal pain. Will continue to hold Xarelto, bleeding likely will stop however will plan tentative sigmoidoscopy tomorrow. Patient without any further GI bleed. No rectal bleeding since yesterday morning. No abdominal pain, nausea or vomiting. Xarelto remains on hold and we will continue to hold it for 2 more days. Patient may resume on Friday09-26-23. No plans on sigmoidoscopy will advance diet and patient may be discharged home. Current Visit: Yes Status: Acute Code(s): K92.2 - GASTROINTESTINAL HEMORRHAGE, UNSPECIFIED SNOMED Code(s): 70805414 (2) History of pulmonary embolism Current Visit: Yes Status: Acute Code(s): Z86.711 - PERSONAL HISTORY OF PULMONARY EMBOLISM SNOMED Code(s): 137507440 (3) History of DVT (deep vein thrombosis) Current Visit: Yes Status: Acute Code(s): Z86.718 - PERSONAL HISTORY OF OTHER VENOUS THROMBOSIS AND EMBOLISM SNOMED Code(s): 861973868 (4) Coronary artery disease Current Visit: Yes Status: Acute Code(s): I25.10 - ATHSCL HEART DISEASE OF [place] CORONARY ARTERY W/O ANG PCTRS SNOMED Code(s): 57455090 Plan: 1. Continue symptomatic and supportive care 2. Continue to hold Xarelto for 2 more days. Patient may resume on 09/26/2023. This was discussed with patient, however patient feels uneasy and we okayed to restart Friday.. 3. Advance to regular diet 4. Hemoglobin stable no further bleeding no plans on colonoscopy/sigmoidoscopy. Thank you for this consultation, patient is cleared by gastroenterology for discharge. Dr. Dawn Osorio I agree with the dictator's note, documented as a scribe by Deepa Lutz.
[2023-09-25] MEDS: amLODIPine 10 MG TAB PO SCH (10:14)
[2023-09-25] MEDS: METOPROLOL TARTRATE 25 MG TAB PO SCH (10:15)
[2023-09-25] MEDS: OXYBUTYNIN 15 MG TAB.ER.24 PO SCH (10:15)
[2023-09-25 11:28] LABS: Glucose,Whole Blood 234 mg/dL (70-110)
[2023-09-25 11:39] LABS: HCT 37.1 % (34.0-46.0); HGB 12.4 gm/dL (11.4-16.0); MCH 29.6 pg (25.0-35.0); MCHC 33.3 g/dL (31.0-37.0); Mean Platelet Volume 9.2; Platelet Count 250 k/uL (150-450); RBC 4.17 m/uL (3.80-5.40); RDW 14.1 % (11.5-15.5); WBC 7.1 k/uL (3.8-10.6)
[2023-09-25 11:52] VITALS: TEMP 98.1
[2023-09-25 11:54] LABS: African American GFR (CKD) >90 (>60 ml/min/1.73 sqM); Anion Gap 8 mmol/L; Blood Urea Nitrogen 13 mg/dL (7-17); Calcium 9.4 mg/dL (8.4-10.2); Carbon Dioxide 24 mmol/L (22-30); Chloride 109 mmol/L (98-107); Glucose 241 mg/dL (74-99); Non-African American GFR(CKD) >90 (>60 ml/min/1.73 sqM); Potassium 3.9 mmol/L (3.5-5.1); Sodium 141 mmol/L (137-145)
--- NOTE | 2023-09-25 12:18 | P.DS ---
Providers Date of admission: 09/23/23 01:30 Expected date of discharge: 09/25/23 Attending physician: Yonathan Choi MD Consults: 09/23/23 01:28 Consult Physician Urgent Consulting Provider: Shiela Osorio Consult Reason/Comments: GI bleed Do you want consulting provider notified?: Yes Primary care physician: [facility] Course: * 68-year-old patient with past medical history significant for coronary artery disease, history of pulm embolism, diabetes mellitus, hypertension, hyperlipidemia, history of osteoarthritis who recently had a colonoscopy done outpatient presents to the emergency department with complaints of bright red blood per rectum. Patient states she was at a restaurant when she had an urge to go to the restroom and saw blood clots come out of the rectum. * Workup initiated in ER included CT angio abdomen which showed surgical clips in the rectum, contrast blush in rectum was noted considered to be source of gastrointestinal bleeding * While in the ER patient had workup initiated which included CBC showed WBC count of 6.7, hemoglobin of 12.7 hematocrit 38.9 platelet count of 266 * Initial lactate was obtained which was 2.4, patient was given fluid bolus after which follow-up lactate was improved to 1.9 * Patient states she had colonoscopy done 11 days ago, and started on Xarelto from the next day. She was taking Xarelto for remote history of pulm embolism, she had 1 episode of PE and DVT. Has followed up with hematology outpatient for anticoagulation * 09/24/2023: Patient seen and evaluated bedside. On evaluation patient is alert and oriented x 4, no more episode of blood in stool noted. Hemoglobin remained stable. Initially gastroenterology was planning sigmoidoscopy however considering no more episode will monitor and potential discharge in the next 24 hours diet advance as tolerated. Continue to hold Xarelto upon discharge till follow-up with PCP at least for 72 more hours * 09/25/2023: Patient seen and evaluated bedside, patient remains asymptomatic bowel movement was reported however no blood noted hemoglobin 12.4, stable for discharge continue to hold Xarelto for another 72 hours. Outpatient follow-up with primary care physician recommended REVIEW OF SYSTEMS: Bright red blood per rectum resolved CONSTITUTIONAL: No fever, no malaise, no fatigue. HEENT: No recent visual problems or hearing problems. Denied any sore throat. CARDIOVASCULAR: No chest pain, orthopnea, PND, no palpitations, no syncope. PULMONARY: No shortness of breath, no cough, no hemoptysis. GASTROINTESTINAL: No diarrhea, no nausea, no vomiting, no abdominal pain. NEUROLOGICAL: No headaches, no weakness, no numbness. HEMATOLOGICAL: Denies any bleeding or petechiae. GENITOURINARY: Denies any burning micturition, frequency, or urgency. MUSCULOSKELETAL/RHEUMATOLOGICAL: Denies any joint pain, swelling, or any muscle pain. ENDOCRINE: Denies any polyuria or polydipsia. PHYSICAL EXAMINATION: GENERAL: The patient is alert and oriented x3, not in any acute distress. Well developed, well nourished. HEENT: Pupils are round and equally reacting to light. EOMI. No scleral icterus. No conjunctival pallor. Normocephalic, atraumatic. No pharyngeal erythema. No thyromegaly. CARDIOVASCULAR: S1 and S2 present. No murmurs, rubs, or gallops. PULMONARY: Chest is clear to auscultation, no wheezing or crackles. ABDOMEN: Soft, nontender, nondistended, normoactive bowel sounds. No palpable organomegaly. MUSCULOSKELETAL: No joint swelling or deformity. EXTREMITIES: No cyanosis, clubbing, or pedal edema. NEUROLOGICAL: Gross neurological examination did not reveal any focal deficits. Assessment and plan * Acute lower gastrointestinal bleed, s/p colonoscopy RESOLVED * History of pulm embolism on anticoagulation * Hypertension * Hypothyroid * Diabetes mellitus type 2 * In regards to her gastrointestinal bleed H&H remained stable, no plan for any intervention per gastroenterology. Continue to hold Xarelto for another 72 hours, resume by 09/28/2023 * In regards to history of pulm embolism Xarelto on hold till hemoglobin stabilizes, bleeding resolves, SCDs for DVT prophylaxis * In regards to history of hypertension continue amlodipine, losartan, metoprolol * In regards to history of diabetes Accu-Cheks ACHS, continue correctional insulin, metformin resumed upon discharge * Regards to history of for thyroid continue Synthyroid Patient Condition at Discharge: Fair Plan - Discharge Summary Discharge Rx Participant: Yes New Discharge Prescriptions: Continue Levothyroxine Sodium [Synthroid] 50 mcg PO QAM Metoprolol Tartrate 25 mg PO BID Aspirin [Adult Low Dose Aspirin EC] 81 mg PO HS Nitroglycerin Sl Tabs [Nitrostat] 0.4 mg SUBLINGUAL Q5M PRN #25 tab PRN Reason: Chest Pain metFORMIN HCL [Glucophage] 1,000 mg PO HS #0 Simvastatin [Zocor] 40 mg PO HS Oxybutynin ER [Ditropan XL] 15 mg PO DAILY Losartan Potassium 100 mg PO HS glipiZIDE XL [Glucotrol XL] 10 mg PO BID amLODIPine [Norvasc] 10 mg PO DAILY Insulin Glargine,Hum.rec.anlog [Lantus Solostar Pen] 45 units SQ DAILY Semaglutide [Ozempic] 1 mg SQ MO Insulin Glargine,Hum.rec.anlog [Lantus Solostar Pen] 35 units SQ HS Berberine 1 tab PO PC-LUNCH Rivaroxaban [Xarelto] 10 mg PO DAILY #0 Discharge Medication List Aspirin [Adult Low Dose Aspirin EC] 81 mg PO HS 02/09/16 [History] Levothyroxine Sodium [Synthroid] 50 mcg PO QAM 02/09/16 [History] Metoprolol Tartrate 25 mg PO BID 02/09/16 [History] Nitroglycerin Sl Tabs [Nitrostat] 0.4 mg SUBLINGUAL Q5M PRN #25 tab 02/16/16 [Rx] metFORMIN HCL [Glucophage] 1,000 mg PO HS #0 02/16/16 [Rx] Insulin Glargine,Hum.rec.anlog [Lantus Solostar Pen] 45 units SQ DAILY 02/18/19 [History] Losartan Potassium 100 mg PO HS 02/18/19 [History] Oxybutynin ER [Ditropan XL] 15 mg PO DAILY 02/18/19 [History] Simvastatin [Zocor] 40 mg PO HS 02/18/19 [History] amLODIPine [Norvasc] 10 mg PO DAILY 02/18/19 [History] glipiZIDE XL [Glucotrol XL] 10 mg PO BID 02/18/19 [History] Berberine 1 tab PO PC-LUNCH 09/23/23 [History] Insulin Glargine,Hum.rec.anlog [Lantus Solostar Pen] 35 units SQ HS 09/23/23 [History] Semaglutide [Ozempic] 1 mg SQ MO 09/23/23 [History] Rivaroxaban [Xarelto] 10 mg PO DAILY #0 09/25/23 [Rx] Follow up Appointment(s)/Referral(s): Kristine Reyes MD [Primary Care Provider] - 1-2 days Activity/Diet/Wound Care/Special Instructions: Diet as tolerated. Hold December resume September 28, 2023 If bleeding resumes please return back to the emergency department Discharge Disposition: HOME SELF-CARE
[2023-09-25 12:27] VITALS: BP 145/80; PULSE 62
== END 2023-09-25 13:04 | disposition home or self-care (01) ==
LOC: EC 19:21 → 3SCARD 09-23 01:30
PROVIDERS: ADMIT Internal Medicine; ATTEND Internal Medicine
DX: K92.2 Gastrointestinal hemorrhage, unspecified (principal); I25.10 Atherosclerotic heart disease of native coronary artery without angina pectoris; E11.9 Type 2 diabetes mellitus without complications; E78.5 Hyperlipidemia, unspecified; I10 Essential (primary) hypertension; F41.9 Anxiety disorder, unspecified; E03.9 Hypothyroidism, unspecified; Z86.711 Personal history of pulmonary embolism; Z86.718 Personal history of other venous thrombosis and embolism; Z95.5 Presence of coronary angioplasty implant and graft; Z79.4 Long term (current) use of insulin; Z79.01 Long term (current) use of anticoagulants; Z79.82 Long term (current) use of aspirin; Z79.84 Long term (current) use of oral hypoglycemic drugs; Z79.890 Hormone replacement therapy; Z79.899 Other long term (current) drug therapy
CPT/HCPCS: 96372 ×3; 96360; 96361 ×2; 99285; 36415 ×2; 86900; 86901; 80053; 80048 ×2; 83605 ×2; 84484; 85025 ×2; 85027 ×2; 85610; 85730; 86850; 86140; 82272; 83036; 74174; G0378 ×3; Q9967

== ENCOUNTER 2023-10-02 09:28 | Emergency (ER) | payer MEDICARE ==
[2023-10-02 09:59] VITALS: RESP 18; TEMP 97.6
--- NOTE | 2023-10-02 10:29 | ED ---
GI Bleed HPI - General Chief complaint: GI Bleed Stated complaint: Lower GI Bleed Time Seen by Provider: 10/02/23 10:00 Source: patient, RN notes reviewed Mode of arrival: ambulatory Limitations: no limitations - History of Present Illness Initial comments: This is a 68-year-old female who presents to the emergency department for rectal bleeding. States that she had the urge to use the restroom this morning, and noticed bright red blood mixed with her stool. Patient was discharged from this facility a week ago after being admitted for a GI bleed. Prior to that admission, she had undergone a colonoscopy with Dr. Osorio. She only had one episode of rectal bleeding at that time and did not have anymore bouts during admission. She ended up holding her Xarelto for about a week. The rectal bleeding this morning felt similar to last time. She did use the restroom a couple of hours afterwards this morning without any rectal bleeding. - Related Data Home Medications Medication Instructions Recorded Confirmed Aspirin [Adult Low Dose Aspirin EC] 81 mg PO HS 02/09/16 09/23/23 Levothyroxine Sodium [Synthroid] 50 mcg PO QAM 02/09/16 09/23/23 Metoprolol Tartrate 25 mg PO BID 02/09/16 09/23/23 Insulin Glargine,Hum.rec.anlog 45 units SQ DAILY 02/18/19 09/23/23 [Lantus Solostar Pen] Losartan Potassium 100 mg PO HS 02/18/19 09/23/23 Oxybutynin ER [Ditropan XL] 15 mg PO DAILY 02/18/19 09/23/23 Simvastatin [Zocor] 40 mg PO HS 02/18/19 09/23/23 amLODIPine [Norvasc] 10 mg PO DAILY 02/18/19 09/23/23 glipiZIDE XL [Glucotrol XL] 10 mg PO BID 02/18/19 09/23/23 Berberine 1 tab PO PC-LUNCH 09/23/23 09/23/23 Insulin Glargine,Hum.rec.anlog 35 units SQ HS 09/23/23 09/23/23 [Lantus Solostar Pen] Semaglutide [Ozempic] 1 mg SQ MO 09/23/23 09/23/23 Previous Rx's Medication Instructions Recorded Nitroglycerin Sl Tabs [Nitrostat] 0.4 mg SUBLINGUAL Q5M PRN #25 tab 02/16/16 metFORMIN HCL [Glucophage] 1,000 mg PO HS #0 02/16/16 Rivaroxaban [Xarelto] 10 mg PO DAILY #0 09/25/23 Allergies Allergy/AdvReac Type Severity Reaction Status Date / Time No Known Allergies Allergy Verified 10/02/23 09:40 Review of Systems ROS Statement: Those systems with pertinent positive or pertinent negative responses have been documented in the HPI. ROS Other: All systems not noted in ROS Statement are negative. Past Medical History Past Medical History: Coronary Artery Disease (CAD), Chest Pain / Angina, Diabetes Mellitus, Deep Vein Thrombosis (DVT), Hyperlipidemia, Hypertension, Musculoskeletal Disorder, Osteoarthritis (OA), Pulmonary Embolus (PE), Thyroid Disorder Additional Past Medical History / Comment(s): Palpitations, urinary frequency, low back pain, DVT with PE, History of Any Multi-Drug Resistant Organisms: MRSA Date of last positivie culture/infection: 2005 MDRO Source:: [employer] Past Surgical History: Bariatric Surgery, Cholecystectomy, Heart Catheterization With Stent, Orthopedic Surgery, Tonsillectomy Additional Past Surgical History / Comment(s): lap removal ovary cyst, LAP BAND. ARTHROSCOPY OF L KNEE. Colonoscopy. I&D of abdominal cyst. Sinus surgery, cataracts, Past Anesthesia/Blood Transfusion Reactions: No Reported Reaction Date of Last Stent Placement:: 02/2016 Past Psychological History: Anxiety Smoking Status: Never smoker Past Alcohol Use History: None Reported Past Drug Use History: None Reported - Past Family History Mother Family Medical History: Cancer Additional Family Medical History / Comment(s): Mother of OVARIAN CANCER at the age of 64yrs.. Father Family Medical History: No Reported History Additional Family Medical History / Comment(s): Father in a motorcycle accident in his 50's. General Exam Limitations: no limitations General appearance: alert, in no apparent distress Head exam: Present: atraumatic, normocephalic, normal inspection Respiratory exam: Present: normal lung sounds bilaterally. Absent: respiratory distress, wheezes, rales, rhonchi, stridor Cardiovascular Exam: Present: regular rate, normal rhythm, normal heart sounds. Absent: systolic murmur, diastolic murmur, rubs, gallop, clicks GI/Abdominal exam: Present: soft, normal bowel sounds. Absent: distended, tenderness, guarding, rebound, rigid Neurological exam: Present: alert, oriented X3, CN II-XII intact Psychiatric exam: Present: normal affect, normal mood Skin exam: Present: warm, dry, intact, normal color. Absent: rash Course Vital Signs 10/02/23 10/02/23 09:37 12:28 Temperature 97.6 F Pulse Rate 75 64 Respiratory 18 18 Rate Blood Pressure 142/80 145/64 O2 Sat by Pulse 99 98 Oximetry Medical Decision Making - Medical Decision Making This is a 68-year-old female who presents to the emergency department for rectal bleeding. Was pt. sent in by a medical professional or institution? @ -No Did you speak to anyone other than the patient for history? @ -No Did you review nursing and triage notes? @ -Yes, and I agree, it is accurate with regards to the patient's symptoms. Were old charts reviewed? @ -No Differential Diagnosis? @ -Differential GI Bleed: Esophageal varices, aortoenteric fistula, Carmina-Andre, gastritis, peptic ulcer disease, diverticulosis, inflammatory bowel disease, hemorrhoids, fissure, colitis, malignancy, Meckels diverticulum, this is not meant to be an all- inclusive list. EKG interpreted by me (3pts min.)? @ -Not obtained X-rays interpreted by me (1pt min.)? @ -Not obtained CT interpreted by me (1pt min.)? @ -CTA of the abdomen and pelvis obtained. My interpretation identifies no evidence of GI hemorrhage. U/S interpreted by me (1pt. min.)? @ -Not obtained What testing was considered but not performed? (CT, X-rays, U/S, labs)? Why? @ -None What meds were considered but not given? Why? @ -None Did you discuss the management of the patient with other professionals? @ -No Did you reconcile home meds? @ -No Was smoking cessation discussed for >3mins.? @ -No Was critical care preformed (if so, how long)? @ -No Were there social determinants of health that impacted care today? How? (Homelessness, low income, unemployed, alcoholism, drug addiction, transportation, low edu. Level, literacy, decrease access to med. care, correction, rehab)? @ -No Was there de-escalation of care discussed even if they declined? (Discuss DNR or withdrawal of care, Hospice)? @ -No What co-morbidities impacted this encounter? (DM, HTN, Smoking, COPD, CAD, Cancer, CVA, Hep., AIDS, mental health diagnosis, sleep apnea, morbid obesity)? @ -CAD, DM Was patient admitted / discharged? @ -Discharged. Lab work obtained revealing an elevated lactic acid of 3.1 and was otherwise unremarkable. Hemoglobin within normal limits. CTA of the abdomen and pelvis obtained revealing no acute process. She was given a liter bolus of IV fluids due to the elevated lactic acid. Patient did not exhibit any additional episodes of rectal bleeding. Given that her hemoglobin is within normal limits, she is not actively bleeding, and her CTA was normal, patient was comfortable with discharge home. Advised holding her Xarelto until the bleeding resolves and following up with gastroenterology. Patient discharged home in stable condition. Undiagnosed new problem with uncertain prognosis? @ -None Drug Therapy requiring intensive monitoring for toxicity (Heparin, Nitro, Ins ulin, Cardizem)? @ -None Were any procedures done? @ -None Diagnosis/symptom? @ -Rectal bleeding Acute, or Chronic, or Acute on Chronic? @ -Acute Uncomplicated (without systemic symptoms) or Complicated (systemic symptoms)? @ -Uncomplicated Side effects of treatment? @ -None Exacerbation, Progression, or Severe Exacerbation] @ -Not applicable Poses a threat to life or bodily function? @ -No Return precautions reviewed in depth, the patient is instructed to return to the emergency department with any new, worsening, or concerning symptoms. Patient verbalized understanding. This case was discussed in detail with the attending ED physician, Dr. Aldrich Presentation, findings, and treatment plan discussed in detail as well. - Lab Data Result diagrams: 10/02/23 10:31 10/02/23 10:31 Lab Results 10/02/23 10/02/23 10/02/23 Range/Units 10:31 10:31 10:31 WBC 7.2 (3.8-10.6) k/uL RBC 4.51 (3.80-5.40) m/uL Hgb 13.2 (11.4-16.0) gm/dL Hct 39.9 (34.0-46.0) % MCV 88.4 (80.0-100.0) fL MCH 29.4 (25.0-35.0) pg MCHC 33.2 (31.0-37.0) g/dL RDW 14.4 (11.5-15.5) % Plt Count 321 (150-450) k/uL MPV 9.8 Neutrophils % 67 % Lymphocytes % 22 % Monocytes % 6 % Eosinophils % 3 % Basophils % 1 % Neutrophils # 4.8 (1.3-7.7) k/uL Lymphocytes # 1.6 (1.0-4.8) k/uL Monocytes # 0.4 (0-1.0) k/uL Eosinophils # 0.3 (0-0.7) k/uL Basophils # 0.1 (0-0.2) k/uL PT 10.3 (10.0-12.5) sec INR 0.9 (<1.2) APTT 23.1 (22.0-30.0) sec Sodium 144 (137-145) mmol/L Potassium 4.1 (3.5-5.1) mmol/L Chloride 112 H (98-107) mmol/L Carbon Dioxide 20 L (22-30) mmol/L Anion Gap 12 mmol/L BUN 12 (7-17) mg/dL Creatinine 0.62 (0.52-1.04) mg/dL Est GFR (CKD-EPI)AfAm >90 (>60 ml/min/1.73 sqM) Est GFR (CKD-EPI)NonAf >90 (>60 ml/min/1.73 sqM) Glucose 138 H (74-99) mg/dL Lactic Ac Sepsis Rflx Plasma Lactic Acid Freedom (0.7-2.0) mmol/L Calcium 9.4 (8.4-10.2) mg/dL Total Bilirubin 0.9 (0.2-1.3) mg/dL AST 23 (14-36) U/L ALT 19 (4-34) U/L Alkaline Phosphatase 95 (38-126) U/L Total Protein 7.2 (6.3-8.2) g/dL Albumin 4.3 (3.5-5.0) g/dL 10/02/23 10/02/23 Range/Units 10:31 11:05 WBC (3.8-10.6) k/uL RBC (3.80-5.40) m/uL Hgb (11.4-16.0) gm/dL Hct (34.0-46.0) % MCV (80.0-100.0) fL MCH (25.0-35.0) pg MCHC (31.0-37.0) g/dL RDW (11.5-15.5) % Plt Count (150-450) k/uL MPV Neutrophils % % Lymphocytes % % Monocytes % % Eosinophils % % Basophils % % Neutrophils # (1.3-7.7) k/uL Lymphocytes # (1.0-4.8) k/uL Monocytes # (0-1.0) k/uL Eosinophils # (0-0.7) k/uL Basophils # (0-0.2) k/uL PT (10.0-12.5) sec INR (<1.2) APTT (22.0-30.0) sec Sodium (137-145) mmol/L Potassium (3.5-5.1) mmol/L Chloride (98-107) mmol/L Carbon Dioxide (22-30) mmol/L Anion Gap mmol/L BUN (7-17) mg/dL Creatinine (0.52-1.04) mg/dL Est GFR (CKD-EPI)AfAm (>60 ml/min/1.73 sqM) Est GFR (CKD-EPI)NonAf (>60 ml/min/1.73 sqM) Glucose (74-99) mg/dL Lactic Ac Sepsis Rflx Y Plasma Lactic Acid Freedom 3.1 H* (0.7-2.0) mmol/L Calcium (8.4-10.2) mg/dL Total Bilirubin (0.2-1.3) mg/dL AST (14-36) U/L ALT (4-34) U/L Alkaline Phosphatase (38-126) U/L Total Protein (6.3-8.2) g/dL Albumin (3.5-5.0) g/dL - Radiology Data Radiology results: report reviewed, image reviewed Disposition Clinical Impression: Lower GI bleed Disposition: HOME SELF-CARE Instructions (If sedation given, give patient instructions): Gastrointestinal Bleeding (ED) Additional Instructions: Return to the emergency department with any new, worsening, or concerning symptoms. Hold your Xarelto until the bleeding stops. Contact Dr. Osorio's office to let them know that you were in the emergency department to see if they would like to schedule you for a sooner follow up appointment. Is patient prescribed a controlled substance at d/c from ED?: No Referrals: Kristnie Reyes MD [Primary Care Provider] - 1-2 days Shiela Osorio MD [STAFF PHYSICIAN] - 1-2 days Time of Disposition: 13:16
[2023-10-02 10:51] LABS: INR 0.9 (<1.2); Partial Thromboplastin Time 23.1 sec (22.0-30.0); Prothrombin Time 10.3 sec (10.0-12.5)
[2023-10-02 10:52] LABS: ALT 19 U/L (4-34); AST 23 U/L (14-36); African American GFR (CKD) >90 (>60 ml/min/1.73 sqM); Albumin 4.3 g/dL (3.5-5.0); Alkaline Phosphatase 95 U/L (38-126); Anion Gap 12 mmol/L; Blood Urea Nitrogen 12 mg/dL (7-17); Calcium 9.4 mg/dL (8.4-10.2); Carbon Dioxide 20 mmol/L (22-30); Chloride 112 mmol/L (98-107); Glucose 138 mg/dL (74-99); Non-African American GFR(CKD) >90 (>60 ml/min/1.73 sqM); Potassium 4.1 mmol/L (3.5-5.1); Sodium 144 mmol/L (137-145); Total Bilirubin 0.9 mg/dL (0.2-1.3); Total Protein 7.2 g/dL (6.3-8.2)
[2023-10-02 10:56] LABS: Basophils # (A) 0.1 k/uL (0-0.2); Basophils % (A) 1 %; Eosinophils # (A) 0.3 k/uL (0-0.7); Eosinophils % (A) 3 %; HCT 39.9 % (34.0-46.0); HGB 13.2 gm/dL (11.4-16.0); Lymphocytes # (A) 1.6 k/uL (1.0-4.8); Lymphocytes % (A) 22 %; MCH 29.4 pg (25.0-35.0); MCHC 33.2 g/dL (31.0-37.0); MCV 88.4 fL (80.0-100.0); Mean Platelet Volume 9.8; Monocytes # (A) 0.4 k/uL (0-1.0); Monocytes % (A) 6 %; Neutrophils # (A) 4.8 k/uL (1.3-7.7); Neutrophils % (A) 67 %; Platelet Count 321 k/uL (150-450); RBC 4.51 m/uL (3.80-5.40); RDW 14.4 % (11.5-15.5); WBC 7.2 k/uL (3.8-10.6)
[2023-10-02] MEDS: SODIUM CHLORIDE 0.9% 1,000 ML IV STA (11:52)
[2023-10-02 12:33] VITALS: BP 145/64; PULSE 64
--- NOTE | 2023-10-02 12:56 | CT ---
EXAMINATION TYPE: CT angio abdomen pelvis CT DLP: 2617.8 mGycm, Automated exposure control for dose reduction was used. DATE OF EXAM: 10/02/2023 11:32 AM COMPARISON: 09/13/2023. . CLINICAL INDICATION:Female, 68 years old with history of Rectal bleeding; PHH, h/o rectal bleeding br ight red in color no pain TECHNIQUE: Multiple thin slice sub-millimeter images were obtained after administration of contrast. 3-D reconstructed images and maximum intensity projection images were obtained. CT angio abdomen pel vis CT Contrast: Contrast used:100 mL of Isovue 300 with IV Contrast, Oral contrast used: without Oral Contrast None FINDINGS: CTA Abdomen and pelvis: The abdominal aorta does not demonstrate aneurysmal dilatation. Atherosclero tic plaquing is identified within the abdominal aorta. The origins of the superior mesenteric artery , renal arteries, inferior mesenteric artery, and celiac axis are patent. The iliac vessels are norm al in morphology LOWER CHEST: No evidence of focal consolidation, pneumothorax or pleural effusion. The heart is mildl y enlarged for size. Coronary artery atherosclerosis. LIVER: Unremarkable GALLBLADDER AND BILE DUCTS: Unremarkable. PANCREAS: Unremarkable. SPLEEN: Unremarkable. ADRENAL GLANDS: Unremarkable. KIDNEYS AND URETERS: No evidence of hydronephrosis or renal calculus. The ureters are unremarkable. Left renal cyst. Nonobstructing left renal calculus measuring 2 mm. PELVIS BLADDER: Unremarkable REPRODUCTIVE: Unremarkable. ABDOMEN & PELVIS STOMACH AND BOWEL: Evaluation of the gastrointestinal tract demonstrates no evidence of high density hemorrhage arterial phase or pooling of blood on delayed phases. No evidence of bowel obstruction. Ga stric lap band changes present. Scattered colonic diverticula are present. PERITONEUM: No evidence of pneumoperitoneum or free fluid. VASCULATURE: Moderate atherosclerotic calcifications are present throughout the abdominal aorta and i ts branches. MUSCULOSKELETAL: Moderate disc degeneration changes are present throughout the thoracolumbar spine. LYMPH NODES: No gross evidence for lymphadenopathy. SOFT TISSUE/ABDOMINAL WALL: Unremarkable IMPRESSION No evidence for gastric gastrointestinal hemorrhage.
== END 2023-10-02 13:44 | disposition home or self-care (01) ==
LOC: EC 09:28
DX: K92.2 Gastrointestinal hemorrhage, unspecified (principal); I25.10 Atherosclerotic heart disease of native coronary artery without angina pectoris; E11.9 Type 2 diabetes mellitus without complications; I10 Essential (primary) hypertension; E07.9 Disorder of thyroid, unspecified; F41.9 Anxiety disorder, unspecified; E78.5 Hyperlipidemia, unspecified; Z79.890 Hormone replacement therapy; Z79.4 Long term (current) use of insulin; Z79.899 Other long term (current) drug therapy; Z79.84 Long term (current) use of oral hypoglycemic drugs; Z79.82 Long term (current) use of aspirin
CPT/HCPCS: 99285; 96360; 96361; 36415; 80053; 83605; 85025; 85610; 85730; 74174; Q9967

== ENCOUNTER → 2024-07-30 | Outpatient (CLI) | payer MEDICARE ==
--- NOTE | 2024-08-02 08:50 | MM ---
Reason for Exam: Screening (asymptomatic). Last mammogram was performed 1 year(s) and 2 month(s) ago. Patient History: Menarche at age 12. First Full-Term at age 19. Postmenopausal. Mother had ovarian cancer, age 60. Risk Values: Crystal 5 year model risk: 1.5%. NCI Lifetime model risk: 4.5%. Prior Study Comparison: 05/19/2017 Bilateral Screening Mammogram, [facility]. 10/17/2020 Bilateral Screening Mammogram, [facility]. 05/27/2023 Bilateral MG 3D screening mammo w/cad, [facility]. Tissue Density: There are scattered areas of fibroglandular density. Findings: Analyzed By CAD. Right breast: There is no suspicious group of microcalcifications or new suspicious mass. Benign-appearing calcifications bilaterally. Left breast: There is no suspicious group of microcalcifications or new suspicious mass. Benign-appearing calcifications bilaterally. Overall Assessment: Benign, BI-RAD 2 Management: Screening Mammogram of both breasts in [address] [facility] will attempt to contact patient to return for supplemental views and ultrasound if indicated. Patient should continue monthly self-breast exams. A clinical breast exam by your physician is recommended on an annual basis. This exam should not preclude additional follow-up of suspicious palpable abnormalities. Note on Crystal scores and lifetime risk: 1. A Crystal score greater than 3% is considered moderate risk. If this is the case, consider specialist referral to assess eligibility for a risk reducing agent. 2. If overall lifetime risk for the development of breast cancer is 20% or higher, the patient may qualify for future screening with alternating mammogram and breast MRI. [facility], , 08/02/2024 8:46 AM. Electronically signed and approved by: Yfn Hall DO
== END | disposition home or self-care (01) ==
LOC: RADMAMWWP 15:10
PROVIDERS: ATTEND Family Medicine
DX: Z12.31 Encounter for screening mammogram for malignant neoplasm of breast (principal); Z78.0 Asymptomatic menopausal state; R92.323 Mammographic fibroglandular density, bilateral breasts
CPT/HCPCS: 77063; 77067

== ENCOUNTER → 2024-08-09 | Outpatient (CLI) | payer MEDICARE ==
--- NOTE | 2024-08-09 15:18 | US ---
EXAMINATION TYPE: US kidneys/renal and bladder DATE OF EXAM: 08/09/2024 COMPARISON: US(05/07/2022) CLINICAL INDICATION: Female, 69 years old with history of Q61.01 Left renal cyst; Known Lt renal cyst from prior US TECHNIQUE: Grayscale imaging of the bilateral kidneys and urinary bladder: FINDINGS: EXAM MEASUREMENTS: Right Kidney: 10.6x5.3x4.6 cm Left Kidney: 10.4x5.3x5.0 cm Right Kidney: No hydronephrosis or masses seen Left Kidney: Anechoic area seen (mid): 3.1x3.4x3.2cm Prior US(05/07/2022): 3.5x2.7x2.5cm Bladder: wnl Bilateral Jets seen: Yes IMPRESSION: 1. No evidence for obstructive uropathy. 2. Left simple appearing renal cysts. [facility], , 08/09/2024 3:16 PM
== END | disposition home or self-care (01) ==
LOC: RADUSWWP 13:46
PROVIDERS: ATTEND Family Medicine
DX: Q61.01 Congenital single renal cyst (principal)
CPT/HCPCS: 76770

== ENCOUNTER → 2024-11-17 | Outpatient (CLI) | payer MEDICARE ==
--- NOTE | 2024-11-17 10:51 | US ---
EXAMINATION TYPE: US venous doppler duplex LE LT DATE OF EXAM: 11/17/2024 10:43 AM COMPARISON: US March 24, 2019 CLINICAL INDICATION: Female, 69 years old with history of M79.662 PAIN IN LEFT LOWER LEG; Pt states l eft lateral pain, Pain TECHNIQUE: The lower extremity deep venous system is examined utilizing real time linear array sonog ant with graded compression, color doppler sonography, and spectral doppler. SIDE PERFORMED: Left FINDINGS: VESSELS IMAGED: Common Femoral Vein Deep Femoral Vein Greater Saphenous Vein * Femoral Vein Popliteal Vein Small Saphenous Vein * Proximal Calf Veins (* superficial vessels) Left Leg: Negative for DVT, Color Doppler imaging shows patency of the vessels. Spectral waveforms a re within normal limits. IMPRESSION: 1. No evidence of deep vein thrombosis of the left lower extremity. [facility], , 11/17/2024 10:49 AM
== END | disposition home or self-care (01) ==
LOC: RADUSWWP 10:24
PROVIDERS: ATTEND Family Medicine
DX: M79.662 Pain in left lower leg (principal)